=== PATIENT | male | born 1935 | race Caucasian/White ===

== ENCOUNTER 2016-12-30 18:12 | Inpatient (IN) | payer MEDICARE ==
[~2016-12-30] VITALS: Ht 177.8 cm; Wt 71.4 kg
[~2016-12-30 18:12] MED LIST: ACET-2766 PO; AMLO2.5T PO; ASPI-973 PO; HYDR200T5 PO; INVANZ1I IV; Probiotics; SACC250C PO
[2016-12-30 18:21] VITALS: BP 166/87; PULSE 121; RESP 18; O2SAT 96
[2016-12-30 18:50] LABS: APPEARANCE,URINE SLIGHTLY CLOUDY (CLEAR,HAZY); COLOR,URINE YELLOW (YELLOW); OCCULT BLOOD,URINE SMALL (NEGATIVE); UROBILINOGEN,URINE NORMAL (NORMAL)
--- NOTE | 2016-12-30 18:58 | ED.REPORT ---
HPI-Abd Pain M 40 and Over Date of Service Dec 30, 2016 ED Provider: Hanna Flores MD An 81 year old male with a history of hypertension, pancreatitis, lupus, pyelonephritis, sepsis, and ESBL presents to the ED with lower back pain onset today. Associated symptoms include shaking, nausea, vomiting, and subjective fever. The patient denies dysuria, urinary urgency, headache, weakness, dizziness, or abdominal pain. Three weeks ago the patient was diagnosed with a UTI while in [place]. He was placed on Cipro at onset, but his culture was resistant to Cipro so he was switched to a 10-day course of Nitrofurantoin, which he finished a week ago. His symptoms did relieve for a short time with the antibiotics. Nursing Notes Stated Complaint: POSS BLADDER INFECTION Chief Complaint: Male Abdominal Pain Nursing Notes Reviewed: Yes Allergies: Coded Allergies: No Known Allergies (Unverified Allergy, Unknown, 12/30/16) Scheduled Amlodipine (Amlodipine) 2.5 Mg Tablet 7.5 MG PO DAILY Aspirin (Aspirin) 81 Mg Tablet 81 MG PO DAILY Hydroxychloroquine Sulfate (Hydroxychloroquine Sulfate) 200 Mg Tablet 400 MG PO DAILY L. Rhamnosus GG/Inulin (Culturelle Chewable Tablet) 10 Billion Cell-200 Mg Tab.chew 1 EACH PO BID Saccharomyces Boulardii (Florastor) 250 Mg Capsule 250 MG PO BID Sulfamethoxazole/Trimeth 800-160 mg (Bactrim DS 800-160 mg) 1 Each Tablet 1 TABLET PO BID Scheduled PRN Acetaminophen (Tylenol Arthritis) 650 Mg Tablet.er 650 MG PO Q4H PRN PRN For Pain General Time Seen by MD: 18:57 Chief Complaint Other (Lower back pain) Hx Obtained From: Patient Arrived By: Walk-in Sudden in Onset?: No Onset Occurred: 5 - 8 hours ago Symptom Duration: Since onset Location: : Back (Lower) Quality: Painful Severity: Current: Moderate Severity: Maximum: Moderate Associated with: Reports: Fever, Nausea, Vomiting Pertinent Negative: Relieved by nothing Context Related History: Reports: Pancreatitis Recent Healthcare: Recent doctor visit Similar Sx Previous: Yes Past Medical History Past Medical History Lupus Hx of pyelonephritis, acute bacteremia, treated with ertapenem. 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 Neurologic: Reports: Shaking, Denies: Dizziness, Headache, Weakness Physical Exam Initial Vital Signs Vital Signs (First) Date Time Temp Pulse Resp B/P Pulse Ox O2 Delivery O2 Flow Rate FiO2 12/30/16 18:21 36.3 121 18 166/87 96 Room Air 12/30/16 20:30 2 Initial VS: Reviewed, Vital signs abnormal Head / Eyes: Atraumatic, Normocephalic Neck: Supple, Full range of motion Skin: Warm, Dry, No cyanosis Psychiatric: Mood/affect normal, Behavior normal, Normal thought content General/Constitutional: Awake, Alert Respiratory / Chest: Breath sounds NL, Breath sounds = bilat, No respiratory distress Cardiovascular: Regular rhythm, Heart sounds NL, No murmurs, No rubs Heart Rate / Rhythm: Positive: Tachycardia Abdomen: Soft, Non-tender Back: Inspection NL, Full range of motion, No CVA tenderness ENT: Airway patent Mouth: Positive: Mucous membranes dry Neurologic: Oriented X3, Speech NL Rigors Lower Extremity / Pelvis / MS: Inspection NL, No edema Interpretation & Diagnostics Lab Results Interpretation Result Diagram: 12/30/162 12/30/16 1852 Test 12/30/16 18:42 12/30/16 18:52 Urine Color Yellow (YELLOW) Urine Appearance Slightly cloudy Urine pH 6.0 (5.0-8.0) Urine Specific [place] 1.025 (1.003-1.035) Urine Protein 100mg/dL (NEG,TRACE) Urine Glucose (UA) Negativemg/dL (NEGATIVE) Urine Ketones Negativemg/dL (NEGATIVE) Urine Occult Blood Small (NEGATIVE) Urine Nitrite Positive (NEGATIVE) Urine Bilirubin Negative (NEGATIVE) Urine Urobilinogen Normalmg/dL (NORMAL) Urine Leukocyte Esterase Large (NEGATIVE) Urine RBC 3-10/hpf (0-2) Urine WBC Packed/hpf (0-5) Urine Epithelial Cells Occasional/hpf (NONE-MOD) Urine Crystals None seen (NONE SEEN) Urine Bacteria Many/hpf (NONE-FEW) Urine Hyaline Casts None/lpf (NONE) Urine Granular Casts None seen (NONE SEEN) Urine Waxy Casts None seen (NONE SEEN) Urine Red Blood Cell Casts None seen (NONE SEEN) Urine White Blood Cell Casts None seen (NONE SEEN) Urine Mucus None seen (None Seen) Urine Trichomonas None seen (NONE SEEN) Urine Yeast None (NONE SEEN) Urinalysis Comment None Urine Culture Reflexed Indicated White Blood Count 14.4th/mm3 (3.8-10.1) Red Blood Count 4.90mil/mm3 (4.40-5.80) Hemoglobin 14.2g/dL (13.8-17.2) Hematocrit 43.1% (41.0-50.0) Mean Corpuscular Volume 88.0fL (81-100) Mean Corpuscular Hemoglobin 29.0pg (27.0-35.0) Mean Corpuscular Hemoglobin Concent 32.9% (32.0-37.0) Red Cell Distribution Width 13.7% (12.3-15.4) Platelet Count 377bil/L (150-400) Neutrophils (%) (Auto) 67.6% (40-74) Lymphocytes (%) (Auto) 21.1% (14-46) Monocytes (%) (Auto) 7.3% (4-12) Eosinophils (%) (Auto) 3.0% (0-5) Basophils (%) (Auto) 0.3% (0-3) Sodium Level 142mEq/L (134-144) Potassium Level 4.1mEq/L (3.5-5.2) Chloride Level 99mEq/L (97-108) Carbon Dioxide Level 20mmol/L (18-29) Blood Urea Nitrogen 22mg/dL (8-27) Creatinine 1.40mg/dL (0.76-1.27) Estimat Glomerular Filtration Rate 52mL/min (>59) Glucose Level 168mg/dL (60-99) Calcium Level 9.3mg/dL (8.5-10.1) Magnesium Level 1.9mg/dL (1.6-2.6) Total Bilirubin 0.6mg/dL (0.0-1.2) Aspartate Amino Transf (AST/SGOT) 22U/L (0-50) Alanine Aminotransferase (ALT/SGPT) 17U/L (0-44) Alkaline Phosphatase 99U/L (25-160) Troponin T < 0.010ug/L (0.0-0.011) Total Protein 8.0g/dL (6.4-8.4) Albumin 4.2g/dL (3.4-5.0) ECG Interpretation ECG Interpretation: Sinus rhythm rate 97 Increased QTc Q waves in leads III and aVF No acute ST changes Time: 19:42 Interpreted by: ED physician X-Ray Chest Interpretation Chest Xray Interpretation: IMPRESSION: Mild appearance of increased pulmonary vascularity with bibasilar streaky opacities. The latter could be home furnishings sales representative of more prominent basilar edema versus developing airspace disease such as atelectasis and/or pneumonia. Dictated by: Yadira Arora M.D. on 12/30/2016 at 19:34 View: Portable, 1 view Interpretation / Wet Read by: Interpret - Radiologist CT Abd / Pelvis Interpretation CONCLUSION: No CT evidence of acute intra-abdominal pathology. Diverticulosis without CT evidence of diverticulitis. Mildly enlarged prostate gland. Transmitted to ED by Ace Cordova M.D. at 12/30/2016 - 10:58:39 PM PDT Study type: Abdominal CT no contrast Interpretation / Wet Read by: Interpret - Radiologist Re-Eval/Medical Decision Med Decision/Clinical Course The patient has a urinary tract infection partially treated and now has developed sepsis. He had a pretty elevated lactic acid is given fluids and his fever treated with improvement in his vital signs. The meeting physician requested a CT KUB He did not have any abdominal symptoms and had a benign abdominal exam. The patient was given ertapenem based on prior urinary tract infections, he has had [id number] organisms. Source of Hx: Old records Time of Eval: 22:00 Patient Status: Condition improved Re-Evaluation/Progress Note: Discussed with patient x-ray, CT, and lab results, diagnosis, and plan for admit. Patient agrees with plan for care and all questions were addressed. Consultation : Referral / Consult Name: Juju Martínez DO Consulted With: Hospitalist Call Returned at: 22:20 Unload Associate: Agrees with eval, Agrees with plan, Accepts admit Note: Requests CT KUB Counseled Regarding: Diagnosis, Lab results, Need for admission Discharge & Departure Primary Impression: Urinary tract infection Urinary tract infection type: acute cystitis Hematuria presence: without hematuria Qualified Code: N30.00 - Acute cystitis without hematuria Additional Impression: Sepsis Sepsis type: sepsis due to unspecified organism Qualified Code: A41.9 - Sepsis, unspecified organism Disposition: ADMITTED TO HOSPITAL Vital Signs - All Vital Signs Date Time Temp Pulse Resp B/P Pulse Ox O2 Delivery O2 Flow Rate FiO2 12/30/16 20:30 39.2 97 32 144/67 93 Nasal Cannula 2 12/30/16 18:21 36.3 121 18 166/87 96 Room Air )( All Prior VS Reviewed: Yes Condition: Improved Referrals: [facility] (PCP) (Family) Scribe Attestation Portions of this note were transcribed by Bailey Sierra. I, Dr. Flores, personally performed the history, physical exam, and medical decision-making; I reviewed and confirmed the accuracy of the information in the transcribed note. Signed by: Philip Ty, 12/30/2016, 23:05 copies to: [facility] Hanna Flores MD Dec 30, 2016 18:58 BAILEY SIERRA Dec 30, 2016 19:15
[2016-12-30] MEDS ORDERED: Ondansetron 2 mg/mL 2 mL Inj ONE ×2 (18:59→21:14)
[2016-12-30] MEDS ORDERED: 0.9% Sodium Chloride 1,000 ML IV ONE (19:00)
[2016-12-30 19:06] LABS: BASOPHILS % (AUTO) 0.3 % (0-3); MONOCYTES % (AUTO) 7.3 % (4-12); NEUTROPHILS % (AUTO) 67.6 % (40-74); Platelet Count 377 bil/L (150-400)
[2016-12-30] MEDS ORDERED: Ertapenem Inj 1,000 MG in 0.9% Sodium Chloride 50 ML IV ONE (19:15)
[2016-12-30] MEDS ORDERED: HYDROmorphone 0.5 mg/0.5 mL iSecure Syringe IVPUSH PRN (19:30)
[2016-12-30 19:36] LABS: TROPONIN T < 0.010 ug/L (0.0-0.011)
--- NOTE | 2016-12-30 19:37 | DRSVH ---
PROCEDURE: X-RAY CHEST ONE VIEW, PORTABLE ([id number]) INDICATIONS: FEVER TECHNIQUE: One view of the chest was acquired. COMPARISON: [facility], CR, XR CHEST 1VW (PORTABLE), 04/28/2016, 18:24. FINDINGS: Surgical changes and devices: None. Lungs and pleura: There is a minimal appearance of increased pulmonary vascularity. Slight appearance of right basilar streaky opacities are noted. Mediastinum: Mediastinal contours appear normal. Heart size is normal. Bones and chest wall: No suspicious bony lesions. Overlying soft tissues appear unremarkable. IMPRESSION: Mild appearance of increased pulmonary vascularity with bibasilar streaky opacities. The latter could be kiosk sales representative of more prominent basilar edema versus developing airspace disease suc h as atelectasis and/or pneumonia. Dictated by: Yadira Arora M.D. on 12/30/2016 at 19:34 Approved by: Yadira Arora M.D. on 12/30/2016 at 19:35
[2016-12-30 19:41] LABS: Magnesium 1.9 mg/dL (1.6-2.6)
[2016-12-30 20:30] VITALS: BP 144/67; PULSE 97; RESP 32; O2SAT 93
[2016-12-30] MEDS ORDERED: L. R1TAB PO (21:10)
[2016-12-30] MEDS ORDERED: SULF1TAB35 PO (21:12)
[2016-12-30] MEDS ORDERED: Ondansetron 2 mg/mL 2 mL Inj IVPUSH PRN ×2 (21:15→23:00)
[2016-12-30 21:17] VITALS: BP 139/61; PULSE 99; RESP 32; O2SAT 93
[2016-12-30 21:54] VITALS: BP 140/63; PULSE 104; RESP 16; O2SAT 94
[2016-12-30] MEDS ORDERED: Polyethylene Glycol (PEG) 17 Gm Powder PO PRN (22:20)
[2016-12-30] MEDS ORDERED: Alum-Mag Hydrox-Simeth 30 mL Suspension PO PRN ×2 (22:20→23:00)
[2016-12-30] MEDS ORDERED: D5 0.45% NaCl + KCl 20 mEq/L 1,000 ML IV SCH (22:56)
[2016-12-30 23:04] VITALS: BP 130/69; PULSE 86; PULSE 90; RESP 17; O2SAT 93
[2016-12-31] VITALS (10 sets, daily range): BP systolic 93–143; BP diastolic 60–81; PULSE 64–86; RESP 14–32; O2SAT 90–96
--- NOTE | 2016-12-31 01:02 | NUR ---
Admit: Pt admitted to PCC room 2008. Pt placed on Tele showing SR, Vitals stable. Pt denies any pain. sp02 maintained in the 90s on 2 L NC. Med rec completed in ER- admit health history questions completed via pt interview. Pt currently resting comfortably in bed. Care ongoing.
--- NOTE | 2016-12-31 01:16 | PCM.HPMED ---
Subjective Date of Service Dec 31, 2016 Primary Provider: Admitting Physician: Juju Martínez DO [facility] Attending Physician: Juju Martínez DO Admit Status: From the Emergency Department Chief Complaint: Urinary tract infection Chills and rigors History of Present Illness: Patient is a pleasant 81-year-old gentleman with history of hypertension, pancreatitis, lupus, pyelonephritis, sepsis and Escherichia coli ESBL for which he was previously treated in April 2016. Patient reports 3 weeks ago being on a trip to [place] where he began to have his previous symptoms of back pain which correlates to the urinary tract infection. He was seen in our walk-in clinic and they prescribed him ciprofloxacin, which he took until he is able to be seen [facility] with a contact the clinic and got culture and sensitivity and found that the bug was resistant to ciprofloxacin, he was subsequent we switched to a 10 day course of nitrofurantoin which he finished one week ago. Earlier today he began to have back pain, he called urology, with a sent him prescription for antibiotics (Bactrim), he says he took 1 pill and shortly after he began to have nausea, shaking, chills, cold sweat, vomited at least 3 times. He denies any dysuria or fevers. In the emergency department he was given a dose of ertapenem, which cultures and sensitivity from April and March of last year showed the organism to be susceptible to. He received IV fluids and states since then he has been feeling progressively better. In the ER he was found to have temperature 36.3, heart rate 121, respirations 18 per minute 166/87, White blood cells 14.4 with normal differential, hemoglobin 14.2, platelets 377 , creatinine 1.4, glucose 168, CMP otherwise unremarkable. Lactic acid 7.4 initially, on recheck 4 hours later had decreased to 1.1 Urinalysis showed a cloudy sample, 6.0 pH. Specific gravity 1.025, protein 100 mg/dL, negative glucose, negative ketones, small occult blood, positive nitrates , large leukocyte esterase, packed white blood cells per high-powered field, 3- 10 red blood cells, occasional epithelial cells, On admission, he is denying any lightheadedness, dizziness, dysuria, back pain, shaking, chills, cold sweats, joint pain, myalgia diarrhea, constipation, abdominal pain. Review of Systems: Comprehensive review of systems negative unless specified in the history of present illness Allergies Coded Allergies: No Known Allergies (Unverified Allergy, Unknown, 12/30/16) Home Medications Scheduled Amlodipine (Amlodipine) 2.5 Mg Tablet 7.5 MG PO DAILY Aspirin (Aspirin) 81 Mg Tablet 81 MG PO DAILY Hydroxychloroquine Sulfate (Hydroxychloroquine Sulfate) 200 Mg Tablet 400 MG PO DAILY L. Rhamnosus GG/Inulin (Culturelle Chewable Tablet) 10 Billion Cell-200 Mg Tab.chew 1 EACH PO BID Saccharomyces Boulardii (Florastor) 250 Mg Capsule 250 MG PO BID Sulfamethoxazole/Trimeth 800-160 mg (Bactrim DS 800-160 mg) 1 Each Tablet 1 TABLET PO BID Scheduled PRN Acetaminophen (Tylenol Arthritis) 650 Mg Tablet.er 650 MG PO Q4H PRN PRN For Pain PMH Lupus Hx of pyelonephritis, acute bacteremia, treated with ertapenem. 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 Surgical History Denies any surgical history Family History Father of stomach cancer at 90 years old Mother from end-stage renal disease at 87 years old 2 older brothers from cancer, one from back cancer at 70 years old, the other from jaw cancer at 71 secondary to tobacco use Social History Occupation: retired Hx Alcohol Use: No Hx Substance Use: No Hx Tobacco Use: Yes (quit approx 30 years ago) Smoking Status: Former Smoker (quit in 1989) Living Arrangement: with Family Exam Vital Signs Vital Sign - Last Date Time Temp Pulse Resp B/P Pulse Ox O2 Delivery O2 Flow Rate FiO2 12/30/16 23:15 Supplement Oxygen 12/30/16 23:04 37.7 86 17 130/69 93 2.00 Intake and Output 12/30/16 12/30/16 12/31/16 Cumulative From/Thru 15:00 23:00 07:00 12/30/16 18:21 - 12/30/16 23:30 Intake Total 2000 ml 2000 ml Output Total 300 ml 300 ml Balance 1700 ml 1700 ml Intake IV Total 2000 ml 2000 ml Output Urine Total 300 ml 300 ml # Voids 1 1 Exam General: Laying in bed, no apparent distress. HEENT: Normocephalic, atraumatic, EOMI grossly, Cardiovascular: Regular rate and rhythm, no clicks murmurs rubs, peripheral pulses 2/4 equal bilaterally Pulmonary: Clear to auscultation bilaterally, no W/R/R. Abdominal: Soft to palpation, bowel sounds present 4, no hepatosplenomegaly. Negative rebound. Extremities: No edema appreciated. No tenderness, asymmetry. Neuro: Neurologically grossly intact, strength is equal bilaterally upper and lower extremities. : No flank pain no [place]if[place] catheter MSK: Gait is normal, able to move extremities on their own volition, strength 5 out of 5 equal bilaterally to upper and lower extremities. Lab and Diagnostics Result Diagram: 12/30/16185112/30/161851 Microbiology Blood cultures and urine cultures pending X-Rays, CTs and MRIs CT Abd / Pelvis Interpretation performed 12/30/2016 CONCLUSION: No CT evidence of acute intra-abdominal pathology. Diverticulosis without CT evidence of diverticulitis. Mildly enlarged prostate gland. Transmitted to ED by Ace Cordova M.D. at 12/30/2016 - 10:58:39 PM PDT Study type: Abdominal CT no contrast Interpretation / Wet Read by: Interpret - Radiologist Chest Xray Interpretation: Performed 12/30/2016 IMPRESSION: Mild appearance of increased pulmonary vascularity with bibasilar streaky opacities. The latter could be hr representative of more prominent basilar edema versus developing airspace disease such as atelectasis and/or pneumonia. Dictated by: Yadira Arora M.D. on 12/30/2016 at 19:34 View: Portable, 1 view Interpretation / Wet Read by: Interpret - Radiologist 12-lead ECG Sinus rhythm, rate 97. Normal axis "inferior infarct, old. Prolonged QT interval at 507, compared with previous EKG of April 2016 there is new or worsened ischemia or infarction. Significant repolarization change." Assessment & Plan 81-year-old man with history of urinary tract infections of ESBL Escherichia coli, presents with UTI symptoms, found to have urinary tract infection, signs and symptoms of sepsis, refractory to previous outpatient antibiotics, responded to IV fluids and ertapenem. #1 Acute sepsis, present on admission, improving Heart rate 121, intermittent tachypnea up to 32 breaths per minute, white count 14.4, identified source urinary tract. Initial lactic acid was 7.4, however on recheck was 1.1 four hours later going to recheck at 2 AM given the substantial difference. Received D5 half-normal saline, changed to normal saline 100 mL per hour. Repeat CBC CMP in the morning Pro-calcitonin to trend Blood cultures 2 pending Treatment for urinary tract infection as below #2 acute, recurrent Urinary tract infection present on admission, treatment initiated, improving History of ESBL Escherichia coli urinary tract infections, similar symptoms and presentation, urinalysis positive for infection. Do not suspect pyelonephritis due to quick resolution of back pain with IV fluids and 1 dose of antibiotics. Urine sent for culture Based on previous cultures, sensitivities, and INNA's, ertapenem was chosen as drug of choice. 1g IV every 24 hours for 10-14 days Infectious disease consult. Isolation - contact #3 Acute kidney injury, present on admission, treatment initiated Serum creatinine 1.40, previous value in April was 1.02, was previously elevated in March of last year with the diagnosis of pyelonephritis. Normal saline IV 100 mL per hour Recheck creatinine in the morning if continues to be elevated consider nephrology consult #4 prolonged QTC, chronicity unknown, present on admission, active QTC was 507 on admission, electrolytes were normal, Most likely due to medications Plaquenil is known to cause QTC prolongation. He is reportedly on this medication for off label use for urinary retention on the advice of Dr. Jackson and his urologist. We will hold Plaquenil and recheck EKG before discharge. #5 EKG changes from previous, present on admission, chronicity unknown. Active Troponin negative, but EKG was read as having worsening ischemia and infarction compared to EKG in April 2016. Asymptomatic at this time, changes may be due to acute stress. We will recheck EKG as above before discharge, referral to cardiology if necessary as an outpatient. Avoid QT prolonging medications. VTE Prophylaxis SCDs GI prophylaxis: Not indicated Pain management: Not describing any pain. Pain Evaluation: Adequate Pain Control GI Prophylaxis: Not indicated VTE Prophylaxis: SCDs VTE Mechanical Devices: Intermittant Pneumatic CD Resuscitation Status: CPR: Attempt Resuscitation Attending Statement The patient was seen and examined together with house staff on 12/30/2016 and I agree with the history, exam and plan as outlined in the note above. Neil Canseco DO Dec 31, 2016 01:16 Juju Martínez DO Dec 31, 2016 02:23
[2016-12-31] MEDS: 0.9% Sodium Chloride 1,000 ML IV SCH ×3 (01:17→22:27)
[2016-12-31] MEDS ORDERED: Haloperidol Decanoate 50 mg/mL Inj IM STA (04:01)
[2016-12-31] MEDS ORDERED: Haloperidol 5 mg/mL Inj IVPUSH ONE (04:05)
[2016-12-31] MEDS ORDERED: Haloperidol 5 mg/mL Inj IM ONE (04:05)
[2016-12-31 04:07] LABS: BASOPHILS % (AUTO) 0.2 % (0-3); EOSINOPHILS % (AUTO) 0.1 % (0-5); MONOCYTES % (AUTO) 9.7 % (4-12); Mean Corpuscular Hemoglobin 28.1 pg (27.0-35.0); Mean Corpuscular Volume 88.4 fL (81-100); NEUTROPHILS % (AUTO) 81.3 % (40-74); Platelet Count 257 bil/L (150-400)
[2016-12-31] MEDS ORDERED: Haloperidol 5 mg/mL Inj IM STA (04:07)
--- NOTE | 2016-12-31 05:11 | NUR ---
Change in mentation: 0300 pt awoke and noted to be very restless. Pt [place], however garbled speech, unable to answer questions "what is your name" "where are you". Vitals stable Blood Glucose 108. At this time, Dr. Canseco notified- at bedside shortly after to assess pt. New IV access obtained as pt d/c his previous one rolling around in bed. STAT lactic acid drawn per MD order. Order received for 0.5mg IV Ativan ( 2nd dose can be given if first was ineffective) and order for head CT 0.5mg given- 15 minutes later Pt escorted by discharge coordinator to CT. Additional dose of 0.5mg Ativan needed in CT to get pt to lay still. Image reviewed by MD. Pt currently back in room- Vitals stable- pt placed on RIVET HEATER to monitor SPO2 as he is very sleepy after Ativan administration. Ranjana notified of changes- states pt does has not consumed ETOH in years- and pt has never show s/s of sun downing. MD aware. Care ongoing.
[2016-12-31] MEDS: Lactobacillus Rhamnosus 10 Bil Unit Capsule PO SCH ×2 (08:30→19:59)
[2016-12-31] MEDS ORDERED: Hydroxychloroqine 200 mg Tablet PO SCH (08:30)
--- NOTE | 2016-12-31 10:03 | DRSVH ---
PROCEDURE: CT KUB ([id number]) INDICATIONS: fever TECHNIQUE: Noncontrast 5 mm thick sections acquired from the diaphragms to the symphysis. 5 mm thick coronal an d sagittal reformats were then performed. For radiation dose reduction, the following was used: aut omated exposure control, adjustment of mA and/or kV according to patient size. COMPARISON: None. FINDINGS: Image quality: Excellent. Lung bases: Lung bases are clear. Heart size is normal. Urinary system: Both kidneys are atrophic in size. No kidney stones. No hydronephrosis or perineph susan fat stranding. Both ureters appear non-dilated throughout their expected courses. Bladder wall thickness is normal; no calcified bladder stones. The prostate gland is enlarged with calcifications . Other solid organs: Liver is enlarged with steatosis. normal in size. Gallbladder is unremarkable. Pancreas is normal in contours. No adrenal nodules. Peritoneum and bowel: Unenhanced bowel loops demonstrate normal wall thickness and caliber. No free fluid or air. Scattered diverticula are present most suggestive of diverticulosis. Nodes and vessels: No retroperitoneal or mesenteric adenopathy by size criteria. Aorta and inferior vena cava are normal in caliber. Abdominal wall: No ventral hernias. Pelvis: No free pelvic fluid. No inguinal hernias or adenopathy. Bones: No suspicious bony lesions. No vertebral body compression fractures. IMPRESSION: 1. No visualized cause of pain. 2. Diverticulosis. Dictated by: Yadira Arora M.D. on 12/31/2016 at 9:05 Approved by: Yadira Arora M.D. on 12/31/2016 at 10:02
[2016-12-31] MEDS: Ondansetron 2 mg/mL 2 mL Inj IVPUSH PRN ×2 (10:57→14:51)
--- NOTE | 2016-12-31 12:01 | DRSVH ---
PROCEDURE: CT BRAIN WITHOUT CONTRAST ([id number]) INDICATIONS: ALtered mental status TECHNIQUE: Noncontrast 4.5 mm thick angled axial sections acquired from the foramen magnum to the vertex, with c oronal reformats. COMPARISON: None. FINDINGS: Image quality: Excellent. CSF spaces: Basal cisterns are patent. No extra-axial fluid collections. The ventricles are symmet susan in size and shape. Brain: No intracranial bleeds or masses. There is cerebral volume loss for age, with resultant vent ricular and sulcal prominence. There are periventricular and deep white matter chronic small vessel ischemic changes. There is intracranial internal carotid artery atherosclerosis. Skull and face: Calvarium and visualized facial bones appear intact, without suspicious lesions. Sinuses: Visualized sinuses and mastoids are clear. IMPRESSION: 1. No acute intracranial process. 2. Moderate atrophy and chronic microvascular ischemic changes. Dictated by: Yadira Arora M.D. on 12/31/2016 at 11:59 Approved by: Yadira Arora M.D. on 12/31/2016 at 12:00
--- NOTE | 2016-12-31 12:02 | CONS ---
[address] [address] CONSULTATION REPORT PATIENT: WENDY ARIZA : 1935 MR#: [id number] ADMIT: 12/30/2016 JOB ID: [id number] DATE OF SERVICE: 12/31/[address] Bolanos for this timely consult. REASON FOR CONSULTATION: Sepsis secondary to ESBL E. coli pyelonephritis. HISTORY OF PRESENT ILLNESS: The patient is an 81-year-old gentleman, known to me from a bizarre admission which occurred last summer. Last summer, the patient was admitted with bacteremic ESBL E. coli pyelonephritis. He had received a couple doses of Septra as an outpatient and then was admitted and placed on ceftriaxone. I saw him several days into the hospital stay when he was dramatically improved and almost ready to go home. The odd part about that was that as an inpatient he had been treated initially with ceftriaxone which should have absolutely no activity against the ESBL E. coli in his blood, and he got better anyway. At the end of this strange case, we sent the patient out with a short course of IV ertapenem. He did well and did not have urinary symptoms for a sustained period of time. More recently, the patient and his were spending some time in [place], and they went there in November and returned about a week or 10 days ago. While in [place] during their month long stay, he developed dysuria, back pain and malaise, which was much similar to the way his episode in March 25 of last year started with pyelo. Because of this, they sought evaluation in the Urgent Care in [place], [place], and he was given Cipro. He took that first a week or 10 days without much improvement and, in fact, drove home from [place] with his feeling very poorly, complaining of some malaise, back pain, dysuria and generalized just fatigue. After his arrival back here, he sought additional evaluation and was treated with nitrofurantoin, as a urine culture done in Urology on December 27 showed again that he had an ESBL in his urine which was only sensitive to carbapenems, aminoglycosides, nitrofurantoin and Bactrim, which is a typical pattern for an ESBL E. coli. The choice of nitrofurantoin was appropriate, but the patient's symptoms progressed and so he was re-evaluated once again and placed on Bactrim just yesterday. Unfortunately, by the time he got started on Bactrim, which was an excellent choice, the patient was already developing nausea, vomiting, fevers with rigors and just increasing back pain, increasing dysuria, and just starting to decompensate. 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 Subsequent to his admission, it was recognized, of course, that he had ESBL back in March as well as this past few days here in the Urology Clinic, and he was started on ertapenem which would be the drug of choice for an ESBL E. coli. ID is consulted regarding appropriate management at this time. No additional history is available from the patient as he is very encephalopathic at this time and really unable to converse, and only follows the simplest of commands inconsistently such as to open his eyes or move an extremity. His tells me that in the days leading up to this admission, he has been complaining, especially yesterday, of the fevers, chills, profound weakness and eventually developed the confusion. He has been complaining to his family about dysuria and frequency, and has not complained about diarrhea. There has also been in the past 24 hours some complaint of upper abdominal pain as well which is worth noting in this patient with a history of pancreatitis. He has not had any significant cough or shortness of breath according to the family who is traveling and living with him. No additional history is available from the patient. PAST MEDICAL HISTORY: 1. Lupus, for which he is on no immunosuppressive therapy. 2. Hypertension. 3. History of recurrent pancreatitis. SOCIAL HISTORY: The patient lives at home with his family. He is an ex-smoker, quit 30 years ago. He also quit drinking 30 years ago. He served honorably in the [employer]. Is cared for at the [facility]. 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 FAMILY HISTORY: Is unobtainable at this time due to his encephalopathy, but I know from my prior conversations the patient has no 1st degree family history of TB, and I doubt that has changed in the last nine months. REVIEW OF SYSTEMS: Not possible secondary to the patient's obtundation. PHYSICAL EXAMINATION: Reveals a critically ill gentleman, lying supine in his hospital bed in the [facility]. Temperature is currently 37.4, but he has been as high as 39.2 in the ED last night. Pulse in the 80s, right now. Respiratory rate around 30, blood pressure 130/68. He is not on any vasopressor agents. He is saturating 93% on 2 L. the patient inconsistently follows commands such as opening his eyes or moving his arms or legs. Otherwise, he is not communicative in any way this morning. There is no evidence of head trauma. Examination of the eyes is notable for pupil about 5 mm on the right and 3 mm on the left. This anisocoria is not mentioned in prior notes and is of concern. The patient does not follow commands, so we cannot track his extraocular movements. He has no scleral icterus or conjunctivitis. Nose appears normal. Oral cavity could not be examined as the patient did not open his mouth. His neck is quite supple, and his neck is without adenopathy or obvious JVD. Lungs relatively clear, though he does not take deep breaths to command. Cardiac tones, regular rate and rhythm. I did not appreciate a murmur, rub, or any gallop. Abdomen is somewhat distended and tender diffusely, but especially in the epigastrium. He also seems to grimace more with right greater than left flank percussion. No rash is seen. His abdomen, though tender, does not have appreciable ascites or organomegaly. Clifton catheter is present. There is no inguinal adenopathy. The extremities are free of synovitis, cellulitis or peripheral edema. The patient moves all four extremities, but beyond that, we cannot say anything about his neuro exam because of his ongoing encephalopathy. As mentioned, there is no skin rash. LABORATORIES: Include white count, was 14,000 in the ED last night, now 12,000. He does have a left shift over 80% segs, no bandemia interestingly. His lactic acid was as high as 7.4 when he hit the ED. It is now down to 1.3. Procalcitonin 0.62 at first measurement. It will likely be higher tomorrow. His liver function tests are normal. Creatinine 1.31. His baseline creatinine is known to be right around 1.0. Urinalysis packed with white cells on this occasion. Urine culture from December 27 in Urology is available. He has an ESBL E. coli sensitive only to carbapenems, nitrofurantoin, Bactrim and aminoglycosides. This appears to be exactly the same pattern as the organism that we found in his urine and blood back in March 2016. IMAGING: Overnight, included a chest x-ray, which was read as bibasilar streaky opacities, felt more likely to a bit of pulmonary edema rather than pneumonia. He also had a CT KUB which found no cause of abdominal pain, and diverticulosis but not diverticulitis was noted. A brain CT was just done and has not yet been interpreted. IMPRESSION: This 81-year-old gentleman with history of Escherichia coli extended-spectrum beta-lactamases bacteremia and complicated urinary tract infection back in March appears to be presenting with essentially the same thing. The patient has been complaining to his family about dysuria, malaise and back pain, and was treated with Cipro which would undoubtedly be ineffectual. He then received nitrofurantoin which would work for cystitis but not for pyelonephritis, and finally was placed on appropriate drug yesterday in the form of trimethoprim sulfamethoxazole, but he was already too sick and developed nausea, vomiting and rigors which rapidly led to his admission. He was found yesterday to have a high white count with left shift, as well as lactic acidosis, and an encephalopathic picture. He has been appropriately placed on ertapenem, and we will adjust the dose of that antibiotic. Other diagnostic concerns here might include recurrent pancreatitis as well as conceivably a bowel process such as a bowel perforation, or a diverticulitis, but these changes were not seen on the case CT KUB of the abdomen that was done earlier. RECOMMENDATIONS: 1. Will increase the dose of ertapenem to 1 g q.24 h., with a supplemental dose this morning. 2. Lipase will be checked. 3. Stool for PCR will be checked on the off chance the patient could have C. diff precipitated by the Cipro recently received, though I do not think that this clinical picture is compatible. 4. We will investigate whether he has any outpatient records or ophthalmologic records regarding anisocoria, as this is an unusual finding. We await the results of the CT scan of the brain, which may be helpful in that regard, but if not, the patient may require a more formal Neuro evaluation to try and explain this fairly striking abnormality which has not been noticed on many previous notes we reviewed here at [facility].
[2016-12-31] MEDS: Acetaminophen IV 1,000 MG in IV Premix 1 EACH IV PRN ×2 (14:51→20:53)
--- NOTE | 2016-12-31 16:23 | NUR ---
Social Work Note: Initial Assessment Data& Assessment: EMR reviewed. SW met with pt and pt family at bedside to discuss discharge planning, SW role explained. Pt was sleeping and pt provided baseline information. Mejia Ho is a 81 year old male admitted on 12/30/2016 for UTI and sepsis. Pt has [employer] insurance coverage and goes to the [place] [facility] in [place] for [place]. Pt lives in [place] with his in a one story home and is independent at baseline. Pt does not require any DME normally and does not have HH or SNF hx. Pt does not have LTC insurance. Pt does not think that pt has ever applied for service connection through the [place]. Pt is planning on bringing completed DPOA paperwork to the hospital as soon as possible. Pt family denies any other needs at this time. SW to continue to follow for medical progression and MD and PT recommendations. Plan: Anticipated discharge home vs. SNF pending PT eval. SW to continue to follow for MD and PT evaluation and recommendations. Pt family denies any other needs at this time. SW to continue to follow. SOHEILA Hernandez Addendum: 12/31/16 at 1627 by CHARLENE LUCIANO Amended: Links added.
[2016-12-31] MEDS ORDERED: Meropenem Inj 2,000 MG in 0.9% Sodium Chloride 100 ML IV ONE (16:30)
--- NOTE | 2016-12-31 18:03 | NUR ---
Mentation/temperature/O2 Patient restless in bed, does not follow commands or speak. Spontaneously opens eyes and groans. Moves all extremities and changes position in bed. Family at bedside unable to get response from patient. Patient shaking with chills and then diaphoretic and flushed on and off throughout shift. Temperature spiked at 103 F, PRN APAP given with good effect. Patient temp currently 98.6. O@ demands have increased throughout shift as well. Currently patient is on 8L Oxymax with SpO2 in the mid 90s. Patient frequently repositioned for comfort. Family at bedside. Vitals are currently WNL. Will continue to monitor.
--- NOTE | 2016-12-31 18:34 | PROG NOTE ---
[address] [address] PROGRESS NOTE PATIENT: WENDY ARIZA : 1935 MR#: [id number] ADMIT: 12/30/2016 JOB ID: [id number] DATE: 12/31/2016 PROCEDURE: Lumbar puncture. INDICATION FOR PROCEDURE: Rule out intracranial infection in a patient with overt sepsis secondary to a urinary tract infection with probable ESBL. DESCRIPTION OF PROCEDURE: As there was a remote possibility of possible involvement of the central nervous system due to patient's confusion in the setting of a septic patient, it was decided to try a lumbar puncture. Unfortunately, we were unable to complete this exam. The patient was very agitated. We did try at the L2 and around the L2 interspace and was unable to cannulate the spinal canal of any fluid. As the patient was moving so much and did not want to use any further sedation at this time, we decided not to continue with the procedure. The patient was started on ertapenem for his presumed ESBL urinary source of sepsis, but this will be changed to meropenem after talking with Dr. Jackson as this would provide some intracranial coverage.
[2016-12-31] MEDS ORDERED: Ertapenem Inj 1,000 MG in 0.9% Sodium Chloride 50 ML IV SCH (19:20)
--- NOTE | 2016-12-31 19:46 | PCM.PNMED ---
Subjective Date of Service Dec 31, 2016 Subjective overnight: Staff noted acute mental status change at 3 AM with the patient having garbled unintelligible speech and unable to answer simple questions. Due to patient agitation he received a 0.5 mg IV Ativan and had a head CT looking for intracranial hemorrhage which was negative. No improvement in mental status overnight. Today: Patient remains incoherent and unable to follow commands. Lumbar puncture for possible meningitis some successful and the patient was placed on empiric meningitis coverage with meropenem per ID recommendations. Patient's vital signs remained stable however he has some minor increase in O2 requirements. Exam Vital Signs Vital Sign - Last Date Time Temp Pulse Resp B/P Pulse Ox O2 Delivery O2 Flow Rate FiO2 12/31/16 04:49 37.1 80 19 118/61 92 Nasal Cannula 2.00 Intake and Output 12/30/16 12/30/16 12/31/16 Cumulative From/Thru 15:00 23:00 07:00 12/30/16 18:21 - 12/31/16 05:22 Intake Total 2000 ml 592 ml 2592 ml Output Total 300 ml 500 ml 800 ml Balance 1700 ml 92 ml 1792 ml Intake Oral 100 ml 100 ml IV Total 2000 ml 492 ml 2492 ml Output Urine Total 300 ml 500 ml 800 ml # Voids 1 1 Exam General: Elderly man laying in bed, moderate acute distress, patient is shaky and not following commands Eyes: anisocoria with sluggish pupillary response right eye greater 4mm than left 2mm HEENT: Normocephalic, atraumatic, moist mucus membranes with no central cyanosis or cobblestoning mucosa Cardiovascular: Regular rate and rhythm, no clicks murmurs rubs, peripheral pulses 2/4 equal bilaterally at radial and dorsalis pedis Pulmonary: Clear to auscultation bilaterally, no W/R/R. Abdominal: normoactive bowel sounds present 4, Soft, patient appears uncomfortable with palpation of abdomen, no hepatosplenomegaly Extremities: No edema appreciated. No tenderness, asymmetry. Neuro: anisocoria, patient is unable to follow commands, moves all extremities, upgoing Babinski bilaterally, withdraws from pain : no Clifton catheter MSK: able to move extremities Psych: unable to assess Lab and Diagnostics Result Diagram: 12/31/168 12/31/16317 Microbiology Blood cultures and urine cultures pending X-Rays, CTs and MRIs CT Abd / Pelvis Interpretation performed 12/30/2016 CONCLUSION: No CT evidence of acute intra-abdominal pathology. Diverticulosis without CT evidence of diverticulitis. Mildly enlarged prostate gland. Transmitted to ED by Ace Cordova M.D. at 12/30/2016 - 10:58:39 PM PDT Study type: Abdominal CT no contrast Interpretation / Wet Read by: Interpret - Radiologist Chest Xray Interpretation: Performed 12/30/2016 IMPRESSION: Mild appearance of increased pulmonary vascularity with bibasilar streaky opacities. The latter could be medicare sales representative of more prominent basilar edema versus developing airspace disease such as atelectasis and/or pneumonia. Dictated by: Yadira Arora M.D. on 12/30/2016 at 19:34 View: Portable, 1 view Interpretation / Wet Read by: Interpret - Radiologist 12-lead ECG Sinus rhythm, rate 97. Normal axis "inferior infarct, old. Prolonged QT interval at 507, compared with previous EKG of April 2016 there is new or worsened ischemia or infarction. Significant repolarization change. Assessment & Plan 81-year-old man with history of urinary tract infections of ESBL Escherichia coli, presents with UTI symptoms, found to have urinary tract infection, signs and symptoms of sepsis, refractory to previous outpatient antibiotics, responded to IV fluids and ertapenem. #1 Acute sepsis, present on admission, improving on admission Heart rate 121, intermittent tachypnea up to 32 breaths per minute , white count 14.4, identified source urinary tract. Initial lactic acid was 7.4, however on recheck was 1.1 four hours later. Received D5 half-normal saline, changed to normal saline 100 mL per hour. Repeat CBC CMP in the morning Pro-calcitonin to trend Blood cultures 2 pending Treatment for urinary tract infection as below #2 acute altered mental status, not present on admission, stable CT scan performed overnight was negative for intracranial hemorrhage Rectal aspirin given for possible thromboembolic stroke Lumbar puncture was unsuccessful to test for possible meningitis Empiric meningitis treatment with meropenem 2 g every 8 hours Continue to monitor and evaluate #3 acute, recurrent Urinary tract infection present on admission, treatment initiated, improving History of ESBL Escherichia coli urinary tract infections, similar symptoms and presentation, urinalysis positive for infection. Urine sent for culture and pending Based on previous cultures, sensitivities, and INNA's, ertapenem was chosen as drug of choice. 1g IV every 24 hours for 10-14 days, changed to meropenem 2 g every 8 hours for meningitis coverage Infectious disease consult. Isolation - contact #4 Acute kidney injury, present on admission, treatment initiated Serum creatinine 1.40, previous value in April was 1.02, was previously elevated in March of last year with the diagnosis of pyelonephritis. Normal saline IV 100 mL per hour monitor #5 prolonged QTC, chronicity unknown, present on admission, active QTC was 507 on admission, electrolytes were normal, Most likely due to medications Plaquenil is known to cause QTC prolongation. He is reportedly on this medication for off label use for urinary retention on the advice of Dr. Jackson and his urologist. We will hold Plaquenil and recheck EKG before discharge. #6 EKG changes from previous, present on admission, chronicity unknown. Active Troponin negative, but EKG was read as having worsening ischemia and infarction compared to EKG in April 2016. Asymptomatic at this time, changes may be due to acute stress. We will recheck EKG as above before discharge, referral to cardiology if necessary as an outpatient. Avoid QT prolonging medications #7 anemia, not present on admission, under evaluation - likely a chronic process, which was uncovered due to IV fluid therapy for treatment of sepsis - anemia panel ordered for AM #8 Systemic Lupus erythematosus, chronic, present on admission - holding Plaquenil until patient status improves for oral medication #9 hypertension, chronic, present on admission - holding amlodipine VTE Prophylaxis SCDs GI prophylaxis: Not indicated Pain management: IV Tylenol Disposition: patient will likely remain hospitalized for the unforeseen future and will possibly require rehabilitation if AMS is secondary to stroke. GI Prophylaxis: Not indicated VTE Prophylaxis: SCDs VTE Mechanical Devices: Intermittant Pneumatic CD Resuscitation Status: CPR: Attempt Resuscitation Attending Statement The patient was seen and examined together with Dr. Blood on 12-31-16 and I agree with the history, exam and plan as outlined in the note above. Juan Blood DO Dec 31, 2016 07:35 Jamil Bolanos MD Jan 01, 2017 12:24
[2016-12-31] MEDS ORDERED: Promethazine Inj 12.5 MG in Dextrose 5%-Pha MIX 50 ML IV PRN (19:50)
--- NOTE | 2016-12-31 20:36 | DRSVH ---
PROCEDURE: X-RAY CHEST ONE VIEW, PORTABLE ([id number]) INDICATIONS: 81 year-old male with worsening respiratory status. TECHNIQUE: One view of the chest was acquired. COMPARISON: [facility], CR, XR CHEST 1VW (PORTABLE), 12/30/2016, 18:49. [facility], CR, XR CHEST 1VW (PORTABLE), 04/28/2016, 18:24. [facility], CR, XR CHEST 2VW, 03/21, 9:28. FINDINGS: Surgical changes and devices: None. Lungs and pleura: No pleural effusions or pneumothorax. Lungs are clear. Mediastinum: Mediastinal contours appear normal. Heart size is normal. Bones and chest wall: No suspicious bony lesions. Nonacute posterior left sixth rib fracture is aga in noted. Overlying soft tissues appear unremarkable. IMPRESSION: No acute cardiopulmonary disease. Dictated by: Adam Carreon M.D. on 12/31/2016 at 20:34 Approved by: Adam Carreon M.D. on 12/31/2016 at 20:35
--- NOTE | 2016-12-31 20:50 | ABG ---
DateTimeAnalyzed 20:47:00 -_ pH ____7.387 - 7.350 7.450 pCO2 ___37.5__ -mmHg 35.0 45.0 pO2 ___65.5__ -mmHg 69.0 116 HCO3- ___22.0__ -mmol/L 22.0 26.0 ABE ___-2.1__ -mmol/L -2.0 2.0 tHb ___11.7__ -g/dL O2Hb ___91.1__ -% COHb ____0.9__ -% MetHb ____1.1__ -% sO2 ___93.0__ -% 25.0 FIO2 ___45.0__ -% Drawn By MK - Date/Time Notified____ 20:50:00 -_ Liter_Flow ____5.0__ -L/min Oxygen Device 1 __oxymask - B 755 -mmHg tO2 ___15.0__ -Vol% Topher test _Positive -
--- NOTE | 2016-12-31 22:44 | PCM.PNMED ---
Subjective Date of Service Dec 31, 2016 Subjective I was notified by RN at 7:58 PM the patient's oxygen demands have increased to 13 L per minute, and was only satting at 90% at the most. When I arrived at the room time was informed that there was a materials air and oxygen was not being correctly applied, but afterwards he was able to be put on 8 L and he was satting in the mid 90s. Nonetheless patient appeared to be in mild respiratory distress from his baseline, chest x-ray was ordered as well as arterial blood gas. Dr. Ruiz attending physician was also notified. Exam Vital Signs Vital Sign - Last Date Time Temp Pulse Resp B/P Pulse Ox O2 Delivery O2 Flow Rate FiO2 12/31/16 20:00 67 12/31/16 17:37 37.0 14 128/72 96 OxyMask 8.00 Intake and Output 12/30/16 12/30/16 12/31/16 Cumulative From/Thru 15:00 23:00 07:00 12/30/16 18:21 - 12/31/16 05:22 Intake Total 2000 ml 592 ml 2592 ml Output Total 300 ml 500 ml 800 ml Balance 1700 ml 92 ml 1792 ml Intake Oral 100 ml 100 ml IV Total 2000 ml 492 ml 2492 ml Output Urine Total 300 ml 500 ml 800 ml # Voids 1 1 Exam Patient lying in bed, unable to be fully aroused. Shaking and rigors. Respiratory rate varied between 20 and 30 per minute. Lung barajas were clear from rales, wheezing, rhonchi. Heart rate was regular, no clicks murmurs or rubs appreciated Patient was mildly diaphoretic, noticeably elevated temperature. IVs and Medications Medications Reviewed: Medications were reviewed in detail Lab and Diagnostics Result Diagram: 12/31/168 12/31/168 Microbiology Blood cultures and urine cultures pending X-Rays, CTs and MRIs CT Abd / Pelvis Interpretation performed 12/30/2016 CONCLUSION: No CT evidence of acute intra-abdominal pathology. Diverticulosis without CT evidence of diverticulitis. Mildly enlarged prostate gland. Transmitted to ED by Ace Cordova M.D. at 12/30/2016 - 10:58:39 PM PDT Study type: Abdominal CT no contrast Interpretation / Wet Read by: Interpret - Radiologist Chest Xray Interpretation: Performed 12/30/2016 IMPRESSION: Mild appearance of increased pulmonary vascularity with bibasilar streaky opacities. The latter could be lead customer service representative of more prominent basilar edema versus developing airspace disease such as atelectasis and/or pneumonia. Dictated by: Yadira Arora M.D. on 12/30/2016 at 19:34 View: Portable, 1 view Interpretation / Wet Read by: Interpret - Radiologist 12-lead ECG Sinus rhythm, rate 97. Normal axis "inferior infarct, old. Prolonged QT interval at 507, compared with previous EKG of April 2016 there is new or worsened ischemia or infarction. Significant repolarization change. Assessment & Plan 81-year-old gentleman, with rigors, sweats, fever up to 103 documented by nurse , perceived to be in respiratory distress. Portal chest x-ray and stat ABG were performed: Wet read by attending physician a chest x-ray did not show significant pulmonary edema, film quality, and blunting of diaphragmatic angle is secondary to decreased respiratory effort. ABG: PH 7.38, PCO2 38, PaO2 65.5, bicarbonate 22.0 Patient had supplemental oxygen turned off for a period of 5 minutes C baseline saturation, it dropped down to 85%. Returned to 95% at 4 L. Findings were discussed with the family, reviewed plan with family and nurse. IV Tylenol every 6 hours scheduled. GI Prophylaxis: Not indicated VTE Prophylaxis: SCDs VTE Mechanical Devices: Intermittant Pneumatic CD Resuscitation Status: CPR: Attempt Resuscitation Attending Statement Pt seen and examined by myself and agree with above plan. Neil Canseco DO Dec 31, 2016 22:44 Yaritza Ruiz MD Jan 01, 2017 06:31
[2016-12-31] MEDS ORDERED: Meropenem Inj 2,000 MG in 0.9% Sodium Chloride 100 ML IV SCH (23:30)
[2017-01-01] VITALS (9 sets, daily range): BP systolic 103–130; BP diastolic 31–73; PULSE 49–79; RESP 18–27; O2SAT 92–98
--- NOTE | 2017-01-01 01:20 | NUR ---
P) LOC/fever Pt. alternating fever and chills, T-max 39c axillary so far this shift, diaphoresis alternating with severe shivering, initially denied pain, then told his daughter he "hurt all over". Lungs equal with coarse breath sounds and decreased in bases bilat. SPO2 in the l0w to mid 90's on 6L N/C, did not tolerate the oxymask. LOC improving, speaking in 2-3 word phrases, nodding and shaking head appropriately. I) Consulted with hospitalist and resident, will give tylenol q6h for 24h, will pass on to day shift. Lots of family teaching on sepsis and care, moved pt. to hardwire room for better monitoring. E) Resting more quietly, family happier with care, last temp 38c axillary.
[2017-01-01] MEDS: Ondansetron 2 mg/mL 2 mL Inj IVPUSH PRN ×3 (01:42→22:29)
[2017-01-01] MEDS: Acetaminophen IV 1,000 MG in IV Premix 1 EACH IV PRN ×2 (02:52→08:55)
--- NOTE | 2017-01-01 04:30 | NUR ---
P) G/U Pt. increasingly restless and agitated, c/o generalized pain, attempted to void in urinal x2 with 1-5ml results, when asked if he wanted a catheter, pt. said that he did. I) Consulted Dr. Canseco and received permission to place a bledsoe for urinary retention. E) Bledsoe placed, immediately filled cath bag to 1300ml level, pt. agreed he felt better, resting more quietly.
[2017-01-01 04:35] LABS: BASOPHILS % (AUTO) 0.3 % (0-3); EOSINOPHILS % (AUTO) 0.2 % (0-5); MONOCYTES % (AUTO) 8.7 % (4-12); Mean Corpuscular Hemoglobin 28.8 pg (27.0-35.0); Mean Corpuscular Volume 90.8 fL (81-100); Platelet Count 203 bil/L (150-400)
[2017-01-01 04:41] LABS: INR 1.06 ratio
[2017-01-01 04:56] LABS: Magnesium 2.1 mg/dL (1.6-2.6); Phosphorus 2.5 mg/dL (2.5-4.9)
[2017-01-01] MEDS: Lactobacillus Rhamnosus 10 Bil Unit Capsule PO SCH ×2 (07:40→20:19)
--- NOTE | 2017-01-01 10:20 | DRSVH ---
PROCEDURE: X-RAY CHEST ONE VIEW, PORTABLE ([id number]) INDICATIONS: acute respiratory failure TECHNIQUE: One view of the chest was acquired. COMPARISON: [facility], CR, XR CHEST 1VW (PORTABLE), 12/31/2016, 20:01. FINDINGS: Surgical changes and devices: None. Lungs and pleura: Interstitium is prominent the mild edema suspected. Medial bibasilar airspace opac ities. Mediastinum: Mediastinal contours appear normal. Heart size is normal. Bones and chest wall: No suspicious bony lesions. Overlying soft tissues appear unremarkable. IMPRESSION: Mild edema suspected and either atelectasis versus aspiration/pneumonia involving the med ial lung bases. Dictated by: Zay Lovell RRA Interpreted: Azucena Charles MD on 01/01/2017 at 10:18 Transcribed by: JOHANNA on 01/01/2017 at 10:20 Approved by: Azucena Charles MD, PhD on 01/01/2017 at 17:02
--- NOTE | 2017-01-01 10:50 | NUR ---
Evaluation completed. Please go to "Notes" then click on "Assessments and Notes" (bottom left corner of screen). Then select appropriate discipline tab on top of screen.
--- NOTE | 2017-01-01 11:26 | PROG NOTE ---
[address] [address] PROGRESS NOTE PATIENT: WENDY ARIZA : 1935 MR#: [id number] ADMIT: 12/30/2016 JOB ID: [id number] DATE: 01/01/2017 INFECTIOUS DISEASE FOLLOWUP NOTE: REASON FOR FOLLOWUP: Complicated urinary tract infection, with altered mental status. INTERVAL HISTORY: Recall that yesterday the patient was still very encephalopathic. Because of concerns about meningitis, the Internal Medicine team attempted a lumbar puncture but was unsuccessful, and they switched the patient from ertapenem to meropenem at my suggestion to cover for the possibility of underlying ESBL E. coli meningitis complicating this infectious process. Shortly after this switch to meropenem was made, however, the patient's encephalopathy basically cleared and since that time, he has remained awake, alert and lucid. Today, the patient states he has no headache, his mental status is normal and he has no stiff neck. He is not reporting any additional fever or chills and basically is feeling rapidly back towards his normal self. PHYSICAL EXAMINATION: Reveals a gentleman who was febrile up until 4 a.m. at 38 degrees. He is 37.1 now. Pulse 60, respiratory rate 20, blood pressure 130/54, saturating well on 6 L. The patient's mental status is entirely normal. Eyes without conjunctivitis. Neck is supple. Lungs with a few crackles at the bases but relatively clear. Cardiac tones: Regular rate and rhythm, and somewhat bradycardic with a pulse only around 50 on the monitor. Abdomen soft and nontender. LABORATORIES: Include a white count normalized at 9800. Creatinine 1.24, down from 1.4 recently. LFT normal. Procalcitonin is 0.6, which is actually identical to yesterday. His blood cultures are negative but urine is growing an ESBL E. coli, which is sensitive to the carbapenems he is receiving, as well as Bactrim. A chest x-ray done this morning shows atelectasis, aspiration or early pneumonia involving the bases. IMPRESSION: This patient is doing much better with respect to his complicated urinary tract infection with altered mental status. He does not have evidence of bacteremia. I do not think there is any clinical reason to think he has meningitis, as he fairly abruptly returned to his normal mental status yesterday afternoon and has a supple neck with no headache or neurologic symptoms. At this point, he is rapidly improving. Of note, just before admission, he tried a single tablet of Bactrim and became very nauseated. Bactrim or Septra, as it is sometimes known, is the only possible oral antibiotic to help to treat this infection, so we will either have to send him home on oral Bactrim after we show he tolerates it here in the hospital or he will need to go home, once again, with once a day ertapenem and return to the [facility] to get it for a sustained period. RECOMMENDATIONS: 1. Will continue with meropenem at least until tomorrow. 2. Discussed with team 3. Probable switch back to ertapenem tomorrow if he looks clinically well. 4. Perhaps tomorrow will try him on some oral Bactrim while we continue with the ertapenem just to see if he tolerates it. If he does, he can probably go home in another day or two on oral Bactrim for a sustained period. If he does not tolerate the oral Bactrim because of nausea and vomiting, we will have no choice but to send him home with IV ertapenem for a period of 10 days or so. JASPAL
[2017-01-01] MEDS: Meropenem Inj 2,000 MG in 0.9% Sodium Chloride 100 ML IV SCH ×2 (12:02→23:14)
--- NOTE | 2017-01-01 18:51 | NUR ---
Speech/Fevers ENROBING MACHINE CORDER evaluated pt, see note. PO meds to be given whole in applesauce. Afebrile this shift. Continues on IV ABX. Nausea this afternoon, no emesis, IV zofran effective. PT to evaluate pt tomorrow. Turning pt in bed, active ROM.
--- NOTE | 2017-01-01 19:27 | PCM.PNMED ---
Subjective Date of Service Jan 01, 2017 Subjective overnight: Clifton catheter placed for urinary retention with 1300 mL of urine out Today: Patient is alert and oriented and responding appropriately to questions and following commands. Initial neuro checks were negative for signs of acute intracranial process. Altered mental status likely secondary to sepsis. Physical therapy and speech therapy consulted for evaluation. Exam Vital Signs Vital Sign - Last Date Time Temp Pulse Resp B/P Pulse Ox O2 Delivery O2 Flow Rate FiO2 01/01/17 07:32 Supplement Oxygen 01/01/17 07:30 36.8 57 21 130/54 98 6.00 Intake and Output 12/31/16 12/31/16 01/01/17 Cumulative From/Thru 15:00 23:00 07:00 12/30/16 18:21 - 01/01/17 05:39 Intake Total 0 ml 2763 ml 5355 ml Output Total 1208 ml 2008 ml Balance 0 ml 1555 ml 3347 ml Intake Oral 0 ml 0 ml 100 ml IV Total 2763 ml 5255 ml Output Urine Total 1208 ml 2008 ml # Voids 3 3 7 # Bowel Movements 0 0 Exam General: Elderly man laying in bed, no acute distress, patient is mildly shaky Eyes: anisocoria with sluggish pupillary response right eye greater 4mm than left 2mm, extraocular motion intact, anicteric sclera HENT: Normocephalic, atraumatic, moist mucus membranes with no central cyanosis or cobblestoning mucosa Cardiovascular: Regular rate and rhythm, no clicks murmurs rubs, peripheral pulses 2/4 equal bilaterally at radial and dorsalis pedis Pulmonary: Clear to auscultation bilaterally, no W/R/R. Abdominal: normoactive bowel sounds present 4, Soft, patient appears uncomfortable with palpation of abdomen, no hepatosplenomegaly Extremities: No edema appreciated. No tenderness, asymmetry. Neuro: Cranial nerves II through XII grossly intact no severe dysdiadochokinesia no pronator drift sensation intact and extremities : no Clifton catheter MSK: able to move extremities Psych: Flat affect Lab and Diagnostics Result Diagram: 01/01/178 01/01/17417 Microbiology Blood cultures and urine cultures pending X-Rays, CTs and MRIs CT Abd / Pelvis Interpretation performed 12/30/2016 CONCLUSION: No CT evidence of acute intra-abdominal pathology. Diverticulosis without CT evidence of diverticulitis. Mildly enlarged prostate gland. Transmitted to ED by Ace Cordova M.D. at 12/30/2016 - 10:58:39 PM PDT Study type: Abdominal CT no contrast Interpretation / Wet Read by: Interpret - Radiologist Chest Xray Interpretation: Performed 12/30/2016 IMPRESSION: Mild appearance of increased pulmonary vascularity with bibasilar streaky opacities. The latter could be sales representative publications of more prominent basilar edema versus developing airspace disease such as atelectasis and/or pneumonia. Dictated by: Yadira Arora M.D. on 12/30/2016 at 19:34 View: Portable, 1 view Interpretation / Wet Read by: Interpret - Radiologist 12-lead ECG Sinus rhythm, rate 97. Normal axis "inferior infarct, old. Prolonged QT interval at 507, compared with previous EKG of April 2016 there is new or worsened ischemia or infarction. Significant repolarization change. Assessment & Plan 81-year-old man with history of urinary tract infections of ESBL Escherichia coli, presents with UTI symptoms, found to have urinary tract infection, signs and symptoms of sepsis, refractory to previous outpatient antibiotics, responded to IV fluids and ertapenem. Hospital day 2 #1 Acute severe sepsis, present on admission, improving on admission Heart rate 121, intermittent tachypnea up to 32 breaths per minute , white count 14.4, identified source urinary tract. Initial lactic acid was 7.4, however on recheck was 1.1 four hours later. Received D5 half-normal saline, changed to normal saline 100 mL per hour. Repeat CBC CMP in the morning Pro-calcitonin to trend Blood cultures 2 pending Treatment for urinary tract infection as below #2 acute altered mental status, not present on admission, stable CT scan performed overnight was negative for intracranial hemorrhage Rectal aspirin given for possible thromboembolic stroke Lumbar puncture was unsuccessful to test for possible meningitis Empiric meningitis treatment with meropenem 2 g every 8 hours Continue to monitor and evaluate Continue aspirin for possible thromboembolic cerebrovascular accident Cleared mental status likely due to clearing of sepsis infection more than stroke or meningitis #3 acute Urinary tract infection, present on admission, treatment initiated, improving History of ESBL Escherichia coli urinary tract infections, similar symptoms and presentation, urinalysis positive for infection. Urine sent for culture and pending Based on previous cultures, sensitivities, and INNA's, ertapenem was chosen as drug of choice. 1g IV every 24 hours for 10-14 days, changed to meropenem 2 g every 8 hours for meningitis coverage Infectious disease consult. Isolation - contact #4 Acute kidney injury, present on admission, treatment initiated Serum creatinine 1.40, previous value in April was 1.02, was previously elevated in March of last year with the diagnosis of pyelonephritis. Normal saline IV 100 mL per hour monitor #5 prolonged QTC, chronicity unknown, present on admission, active QTC was 507 on admission, electrolytes were normal, Most likely due to medications Plaquenil is known to cause QTC prolongation. He is reportedly on this medication for off label use for urinary retention on the advice of Dr. Jackson and his urologist. We will hold Plaquenil and recheck EKG before discharge. #6 EKG changes from previous, present on admission, chronicity unknown. Active Troponin negative, but EKG was read as having worsening ischemia and infarction compared to EKG in April 2016. Asymptomatic at this time, changes may be due to acute stress. We will recheck EKG as above before discharge, referral to cardiology if necessary as an outpatient. Avoid QT prolonging medications #7 anemia, not present on admission, under evaluation - likely a chronic process, which was uncovered due to IV fluid therapy for treatment of sepsis - anemia panel ordered for AM #8 Systemic Lupus erythematosus, chronic, present on admission - holding Plaquenil until patient status improves for oral medication #9 hypertension, chronic, present on admission - holding amlodipine VTE Prophylaxis SCDs GI prophylaxis: Not indicated Pain management: IV Tylenol Disposition: patient will likely remain hospitalized for the unforeseen future and will possibly require rehabilitation if AMS is secondary to stroke. Pain Evaluation: Adequate Pain Control GI Prophylaxis: Not indicated VTE Prophylaxis: Sub-Q Heparin (Unfractionated), SCDs VTE Mechanical Devices: Intermittant Pneumatic CD Resuscitation Status: CPR: Attempt Resuscitation Attending Statement The patient was seen and examined together with Dr. Blood on 01-01-17 and I agree with the history, exam and plan as outlined in the note above. Juan Blood DO Jan 01, 2017 07:49 Jamil Bolanos MD Jan 02, 2017 13:17
[2017-01-01] MEDS: Heparin 5,000 Unit/mL Inj SUBQ SCH (23:47)
[2017-01-02] VITALS (10 sets, daily range): BP systolic 113–154; BP diastolic 51–70; PULSE 47–80; RESP 15–22; O2SAT 91–100
--- NOTE | 2017-01-02 01:36 | NUR ---
Agitation/Restless/Nausea/Pain Pt awake and oriented x3 but can be forgetful at times. Pt able to answer questions appropriately. He has delay to answer at times. Family expressing concern about not sleeping very well. Pt had dose of 12.5 Phenergan and Tylenol for generalized pain. was at bedside and educated about the Phenergan. Daughter took over for the night and has lots of questions and concerns. Answered question and concerns appropriately. Pt noted to be sleeping after dose of Tylenol and Phenergan. Daughter reported pt nap for about an 1 hour then he started getting restless and agitated. VSS. Afebrile. Pt still oriented to self, and family but mumbles of confused conversation noted. Daughter request for physician to come assess pt. Pt able to formulate sentence and answer the MD questions during assessment. MD educated daughter about poss hospital delirium. Printed info about hospital delirium given to pt's daughter. Pt noted to have calmed down after frequent tossing and turning in bed. Daughter report that pt has had back issues in the past. Heat pack applied and frequent repositioning done. Zofran given for c/o nausea. Tylenol given to be on top of pt's generalized discomfort. Telemetry SB in 40s-50s. Md made aware of 14 beats Vtach. Pt was asymptomatic. VSS. Will continue to monitor. Addendum: 01/02/17 at 0735 by DEDRICK VELASQUEZ RN Pt denies any further nausea this am. Pt noted to be calmer this am during bed report. He was oriented and answering questions appropriately.
[2017-01-02 04:41] LABS: BASOPHILS % (AUTO) 0.4 % (0-3); EOSINOPHILS % (AUTO) 7.5 % (0-5); MONOCYTES % (AUTO) 9.2 % (4-12); Mean Corpuscular Hemoglobin 28.8 pg (27.0-35.0); Mean Corpuscular Volume 90.3 fL (81-100); NEUTROPHILS % (AUTO) 65.5 % (40-74); Platelet Count 173 bil/L (150-400)
[2017-01-02] MEDS: Lactobacillus Rhamnosus 10 Bil Unit Capsule PO SCH ×2 (07:52→20:05)
[2017-01-02] MEDS: Heparin 5,000 Unit/mL Inj SUBQ SCH ×2 (08:02→16:39)
--- NOTE | 2017-01-02 10:41 | NUR ---
Social Work: Continued Discharge Planning D: Pt discussed in am rounds. Pt is not medically stable for discharge at this time. PT recommendation is currently for SNF as pt is deconditioned and will require gait stability. MUSCULOSKELETAL PHYSICIAN met with pt's to discuss recommendations. Pt currently with RN. MUSCULOSKELETAL PHYSICIAN and PT discussed recommendations. would like to discuss recommendations with her daughter. She is concerned about managing pt's care at home and also knows that the pt will not be receptive to skilled rehab. She is agreeable to a referral placed to [facility] in [place]. MUSCULOSKELETAL PHYSICIAN spoke with [facility] who will provide referral. Pt discussed in am rounds. Pt abx needs are still undetermined at this time. Pt may requires IV Abx. Awaiting final recommendations from infectious disease. PPW on chart PASSR Completed. A: Pt who previously was at home with his spouse and I. P: Evolving; [facility] [place] is reviewing. Anticipate pt to require SNF for PT and possible RN for IV Abx. MUSCULOSKELETAL PHYSICIAN to continue to follow pt's clinical progress. R/o IV ABX at d/c. SOHEILA Quinteros
--- NOTE | 2017-01-02 10:48 | NUR ---
Gave access and faxed facesheet to [employer] per HYDRAULIC PILE HAMMER OPERATOR
--- NOTE | 2017-01-02 11:04 | PROG NOTE ---
[address] [address] PROGRESS NOTE PATIENT: WENDY ARIZA : 1935 MR#: [id number] ADMIT: 12/30/2016 JOB ID: [id number] DATE: 01/02/2017 INFECTIOUS DISEASE FOLLOW UP NOTE: REASON FOR FOLLOWUP: Complicated urinary tract infection due to ESBL E. coli with associated encephalopathy. DATE: INTERVAL HISTORY: The patient is completely resolved in his abnormal mental status of a couple days ago. This morning he is awake and alert. He denies fevers, chills or sweats. He has no flank pain. No significant respiratory complaint and no nausea or vomiting. He is tolerating his intravenous antibiotics quite well which currently consist of meropenem though were planning to switch back to ertapenem. He told us that his prior experience with Bactrim was confusing because he was at that time already quite sick with his urinary tract infection and he developed nausea and vomiting so were going to retry him on Bactrim at this point to see if he can tolerate oral sulfa drugs and he agrees with that plan. PHYSICAL EXAMINATION: Reveals an afebrile gentleman, temperature 36.7, pulse 50, respiratory rate 22, blood pressure 123/55, saturating well on 2 L. We saw the patient, up ambulating in the pinedo with physical therapy and he is certainly becoming more mobile as the days go by. His oral cavity is unremarkable. Mental status seems clear. Lungs without significant rales or rhonchi posteriorly. No flank tenderness is noted. Abdomen benign. LABORATORIES: Include white count all the way down to normal at 8000, normal differential at this point as well, except for the appearance of 7% eosinophils which is likely secondary to antibiotics. Creatinine has dropped down to 0.95. LFTs are normal. Procalcitonin continues to decline and is down to 0.37. Urinalysis had packed white cells, of course, and grew an ESBL E. coli. Blood cultures x8 bottles have all been negative. Yesterday we have a chest x-ray, which shows atelectasis, aspiration pneumonia or pulmonary edema. IMPRESSION: This patient seems to be doing very well with his complicated ESBL E. coli urinary tract infection and associated encephalopathy. Recall this is the patient who last summer had a bacteremic complicated ESBL E. coli urinary tract infection. What to do with him in terms of management from this point forward is a bit difficult. We could keep the patient on ertapenem as a once a day IV antibiotic to complete a 14 day course of antibiotics. The only other option I see here would be to place him on oral Bactrim for an extended course. The problem with this is that he seemed to experience some significant gastrointestinal toxicity when he attempted it just prior to this admission but it is unclear if that was due to Bactrim or a developing illness. RECOMMENDATIONS: 1. Will switch the meropenem back to ertapenem today. 2. He will either require a completion of a 14 day total IV antibiotic course using once a day ertapenem and coming to the [facility] or we can transition to [facility]. 3. We will start the patient on Bactrim today at a dose of one double-strength tablet twice a day. This will allow us to evaluate his potassium as well as his GI tolerance of the Bactrim. 4. I will be out of town the next three days but Dr. Fonseca will be coming by and checking on his situation tomorrow and we will discuss this by telephone. Our plan would be to make a final decision tomorrow regarding whether to send the patient home on an extended course of Bactrim or extended course of IV ertapenem, but given the multi-drug resistant nature of this organism, there are really no other logical options.
[2017-01-02] MEDS: Trimethoprim-Sulfa 160 mg-800 mg Tablet PO SCH ×2 (11:21→20:05)
[2017-01-02] MEDS: Ertapenem Inj 1,000 MG in 0.9% Sodium Chloride 50 ML IV SCH (11:27)
--- NOTE | 2017-01-02 13:50 | NUR ---
[facility] has accepted with Dr. Tom to follow MEAT DEPARTMENT MANAGER spoke with Jose, hospital education coordinator at [facility], who provided acceptance.
--- NOTE | 2017-01-02 14:55 | NUR ---
NUTRITION ASSESSMENT: ASSESS: Pt is an 81yo M admitted for UTI and sepsis. ID is following. Pt was experiencing some AMS but this seems to be improving. ST has evaluated pt and placed him on a dysphagia mechanical diet with NT liquids. Pox1 meal was 25%. Wt has been stable through hospital stay. PMHX: Lupus, pyelonephritis, HTN, pancreatitis LABS: Reviewed. Ca 7.7, Alb 2.8 MEDS: Reviewed. zofran GI: 0 BM recorded SKIN: [place] 13 CURRENT WTS: 72.4kg, BMI 22.9kg/m2, admit wt 72kg DIET: Dysphagia Mechanical, NT. PO 25% x1 meal EST. NEEDS: Kcals: 1810-2170kcal/day (25-30kcal/kg) Pro: 85-95g/day (1.0-1.2g/kg) NUTRITION DIAGNOSIS: 1.) Chew/swallow difficulty related to weakness as evidence by need for dysphagia mechanical diet with NT liquids. NUTRITION INTERVENTION: 1.) Continue diet per ST 2.) Will add NT Ensure on L and D trays MONITOR / EVAL: PO, ST, wt, GI, labs, POC, nutrition status. Will continue to monitor per moderate nutrition risk guidelines
[2017-01-02] MEDS: Ondansetron 2 mg/mL 2 mL Inj IVPUSH PRN (16:33)
[2017-01-02] MEDS: Acetaminophen IV 1,000 MG in IV Premix 1 EACH IV PRN (16:49)
--- NOTE | 2017-01-02 18:22 | NUR ---
Ambulation status Patient walked with PT this afternoon but when getting the patient up to the chair from the bed, 2 person maximum assist was needed. Patient very weak, unable to hold own weight. Persistently leaning to the right. When getting patient back to the bed from the chair, less assistance was needed. Able to wear own weight.
--- NOTE | 2017-01-02 20:10 | PCM.PNMED ---
Subjective Date of Service Jan 02, 2017 Subjective overnight: Mild delirium overnight with patient's family requested overnight doctor to evaluate consistent with sundowning, 14 beats of V. tach, no acute events otherwise noted Today: Patient when initially seen was in good spirits and no pain no fevers or chills. Patient stated he was feeling much much better. Patient noted no unilateral weakness or difficulty speaking. Family later asked for patient to be reevaluated later due to back pain fever and chills. Family was reeducated about the progression of the disease process and the fact that this is expected given his pyelonephritis. Family requested medication to treat the back pain besides Tylenol. Given patient's delirium no narcotics will be given at this time treating pain currently with IV Tylenol. Consider a 1 time dose of Toradol given the patient's significantly improved creatinine. Exam Vital Signs Vital Sign - Last Date Time Temp Pulse Resp B/P Pulse Ox O2 Delivery O2 Flow Rate FiO2 01/02/17 05:06 62 01/02/17 04:32 Supplement Oxygen 01/02/17 04:07 36.5 15 117/60 95 3.00 Intake and Output 01/01/17 01/01/17 01/02/17 Cumulative From/Thru 15:00 23:00 07:00 12/30/16 18:21 - 01/02/17 05:21 Intake Total 1215 ml 1470 ml 8040 ml Output Total 800 ml 800 ml 3608 ml Balance 415 ml 670 ml 4432 ml Intake Oral 320 ml 200 ml 620 ml IV Total 895 ml 1270 ml 7420 ml Output Urine Total 800 ml 800 ml 3608 ml # Voids 7 # Bowel Movements 0 0 Exam General: Elderly man sitting in bed, no acute distress, patient is mildly shaky Eyes: anisocoria with sluggish pupillary response right eye greater 4mm than left 2mm, extraocular motion intact, anicteric sclera HENT: Normocephalic, atraumatic, moist mucus membranes with no central cyanosis or cobblestoning mucosa Cardiovascular: Regular rate and rhythm, no clicks murmurs rubs, peripheral pulses 2/4 equal bilaterally at radial and dorsalis pedis Pulmonary: Clear to auscultation bilaterally, no W/R/R. Abdominal: normoactive bowel sounds present 4, Soft, patient appears uncomfortable with palpation of abdomen, no hepatosplenomegaly Extremities: No edema appreciated. No tenderness, asymmetry. Neuro: Cranial nerves II through XII grossly intact : no Clifton catheter MSK: able to move extremities Psych: Flat affect and normal mood Lab and Diagnostics Result Diagram: 01/02/1743301/02/17433 Microbiology Blood cultures and urine cultures pending X-Rays, CTs and MRIs CT Abd / Pelvis Interpretation performed 12/30/2016 CONCLUSION: No CT evidence of acute intra-abdominal pathology. Diverticulosis without CT evidence of diverticulitis. Mildly enlarged prostate gland. Transmitted to ED by Ace Cordova M.D. at 12/30/2016 - 10:58:39 PM PDT Study type: Abdominal CT no contrast Interpretation / Wet Read by: Interpret - Radiologist Chest Xray Interpretation: Performed 12/30/2016 IMPRESSION: Mild appearance of increased pulmonary vascularity with bibasilar streaky opacities. The latter could be business office representative of more prominent basilar edema versus developing airspace disease such as atelectasis and/or pneumonia. Dictated by: Yadira Arora M.D. on 12/30/2016 at 19:34 View: Portable, 1 view Interpretation / Wet Read by: Interpret - Radiologist 12-lead ECG Sinus rhythm, rate 97. Normal axis "inferior infarct, old. Prolonged QT interval at 507, compared with previous EKG of April 2016 there is new or worsened ischemia or infarction. Significant repolarization change. Assessment & Plan 81-year-old man with history of urinary tract infections of ESBL Escherichia coli, presents with UTI symptoms, found to have urinary tract infection, signs and symptoms of sepsis, refractory to previous outpatient antibiotics, responded to IV fluids and ertapenem. Hospital day 3 #1 Acute severe sepsis, present on admission, resolved on admission Heart rate 121, intermittent tachypnea up to 32 breaths per minute , white count 14.4, identified source urinary tract. Initial lactic acid was 7.4, however on recheck was 1.1 four hours later. Received D5 half-normal saline, changed to normal saline 100 mL per hour. Repeat CBC CMP in the morning Pro-calcitonin to trend Blood cultures 2 pending Treatment for urinary tract infection as below #2 acute altered mental status, not present on admission, resolved CT scan was negative for intracranial hemorrhage Rectal aspirin given for possible thromboembolic stroke Lumbar puncture was unsuccessful to test for possible meningitis Empiric meningitis treatment with meropenem 2 g every 8 hours Continue to monitor and evaluate Continue by mouth aspirin for possible thromboembolic cerebrovascular accident Cleared mental status likely due to clearing of sepsis infection more than stroke or meningitis perform MRI prior to discharge Low-dose Seroquel 6.125 mg available overnight for agitation given recent delirium considered sundowning overnight #3 acute Urinary tract infection, present on admission, treatment initiated, improving History of ESBL Escherichia coli urinary tract infections, similar symptoms and presentation, urinalysis positive for infection. Urine sent for culture and pending Based on previous cultures, sensitivities, and INNA's, ertapenem was chosen as drug of choice. 1g IV every 24 hours for 10-14 days, changed to meropenem 2 g every 8 hours for meningitis coverage Infectious disease consult. Isolation - contact #4 Acute kidney injury, present on admission, resolved Serum creatinine 1.40 on admission, currently 0.95 Normal saline IV 100 mL per hour monitor #5 prolonged QTC, chronicity unknown, present on admission, active QTC was 507 on admission, electrolytes were normal, Most likely due to medications Plaquenil is known to cause QTC prolongation. He is reportedly on this medication for off label use for urinary retention on the advice of Dr. Jackson and his urologist. We will hold Plaquenil and recheck EKG before discharge. #6 EKG changes from previous, present on admission, chronicity unknown. Active Troponin negative, but EKG was read as having worsening ischemia and infarction compared to EKG in April 2016. Asymptomatic at this time, changes may be due to acute stress. We will recheck EKG as above before discharge, referral to cardiology if necessary as an outpatient. Avoid QT prolonging medications #7 anemia, not present on admission, under evaluation - likely a chronic process, which was uncovered due to IV fluid therapy for treatment of sepsis #8 Systemic Lupus erythematosus, chronic, present on admission - holding Plaquenil until patient status improves for oral medication #9 hypertension, chronic, present on admission - holding amlodipine VTE Prophylaxis SCDs GI prophylaxis: Not indicated Pain management: IV Tylenol Disposition: patient will likely remain hospitalized for the next 2 days and may require some rehabilitation depending on physical therapy's evaluation over the coming days. GI Prophylaxis: Not indicated VTE Prophylaxis: Sub-Q Heparin (Unfractionated), SCDs VTE Mechanical Devices: Intermittant Pneumatic CD Resuscitation Status: CPR: Attempt Resuscitation Attending Statement The patient was seen and examined together with Dr. Blood on 01-02-17 and I agree with the history, exam and plan as outlined in the note above. Juan Blood DO Jan 02, 2017 07:47 Jamil Bolanos MD Jan 03, 2017 12:45
[2017-01-02 21:23] LABS: Unsaturated Iron Binding 121.5 ug/dL
[2017-01-03] VITALS (8 sets, daily range): BP systolic 129–157; BP diastolic 41–82; PULSE 45–54; RESP 18–52; O2SAT 92–97
[2017-01-03] MEDS: Heparin 5,000 Unit/mL Inj SUBQ SCH ×3 (00:02→17:46)
[2017-01-03] MEDS: Acetaminophen IV 1,000 MG in IV Premix 1 EACH IV PRN ×2 (00:04→06:10)
[2017-01-03 04:21] LABS: BASOPHILS % (AUTO) 0.5 % (0-3); EOSINOPHILS % (AUTO) 5.9 % (0-5); MONOCYTES % (AUTO) 9.7 % (4-12); Mean Corpuscular Hemoglobin 28.8 pg (27.0-35.0); Mean Corpuscular Volume 86.8 fL (81-100); NEUTROPHILS % (AUTO) 67.6 % (40-74); Platelet Count 216 bil/L (150-400)
--- NOTE | 2017-01-03 06:57 | NUR ---
Pain Pt stating having some back pain this shift x1. Administered IV Tylenol and effective. Pt able to rest most of shift with intermittent bouts of restlessness. Pt continues to be bradycardic at times and asymptomatic. VSS and Tele SB/R 40's to 60's.
[2017-01-03] MEDS: Trimethoprim-Sulfa 160 mg-800 mg Tablet PO SCH ×2 (08:51→20:30)
[2017-01-03] MEDS: Ertapenem Inj 1,000 MG in 0.9% Sodium Chloride 50 ML IV SCH (08:51)
[2017-01-03] MEDS: Lactobacillus Rhamnosus 10 Bil Unit Capsule PO SCH ×2 (08:52→20:30)
--- NOTE | 2017-01-03 15:24 | NUR ---
Social Work: Continued Discharge Planning D: Pt discussed with . ID is following the pt and making recommendations for abx. It is expected that pt will require a 14 day course of IV Ertapenem. The pt has been accepted to [facility] in [place] however due to the high cost of Ertapenem pt cannot discharge until this is completed. PARATRANSIT OPERATOR confirmed this with Jose, office coordinator receptionist at [facility]. They will continue to follow pt's clinical progress and determine it pt still has a skillable need once IV ABX course is completed. A: Pt who requires more physical therapy to regain functional mobility P: Evolving; Pt to remain at [facility] until IV Ertapenem is completed. PARATRANSIT OPERATOR to follow pt's progress with PT closely- if pt is able to safely discharge home prior to completion of IV ABX pt may be able to complete the remaining course of ABX at [facility] [place]. If pt is not safe to discharge after IV-Abx is completed, pt has been accepted at [facility] with Dr. Tom to follow. SOHEILA Quinteros
--- NOTE | 2017-01-03 19:04 | NUR ---
Activity/Nuero's Patient a/o x 3, but forgetful at times, denies pain, nausea or sob. Patient has gen weakness bilat and needs freq cueing on gait, balance and amb. Patient oob for all meals with 1-2 person assist. Amb in room and showered this afternoon. VSS, tele SB-SR. Family at bedside to assist with care.
--- NOTE | 2017-01-03 20:01 | PCM.PNMED ---
Subjective Date of Service Jan 03, 2017 Subjective overnight: No acute events overnight Today: Patient states he feels better. His back pain is rated out of 2 out of 10. No recurrence of fever or chills. He states that he still feels significantly weaker than normal. Exam Vital Signs Vital Sign - Last Date Time Temp Pulse Resp B/P Pulse Ox O2 Delivery O2 Flow Rate FiO2 01/03/17 05:47 50 01/03/17 03:39 36.4 20 145/41 93 Nasal Cannula 1.00 Intake and Output 01/02/17 01/02/17 01/03/17 Cumulative From/Thru 15:00 23:00 07:00 12/30/16 18:21 - 01/03/17 06:13 Intake Total 1851 ml 0 ml 9891 ml Output Total 1750 ml 2775 ml 8133 ml Balance 101 ml -2775 ml 1758 ml Intake Oral 450 ml 0 ml 1070 ml IV Total 1401 ml 8821 ml Output Urine Total 1750 ml 2775 ml 8133 ml # Voids 7 # Bowel Movements 0 Exam General: Elderly man sitting in bed, no acute distress, patient is mildly shaky Eyes: anisocoria right eye greater 4mm than left 2mm, extraocular motion intact , anicteric sclera HENT: Normocephalic, atraumatic, moist mucus membranes with no central cyanosis or cobblestoning mucosa Cardiovascular: Regular rate and rhythm, no clicks murmurs rubs, peripheral pulses 2/4 equal bilaterally at radial and dorsalis pedis Pulmonary: Clear to auscultation bilaterally, no W/R/R. Abdominal: normoactive bowel sounds present 4, Soft, patient appears uncomfortable with palpation of abdomen, no hepatosplenomegaly Extremities: No edema appreciated. No tenderness, asymmetry. Neuro: Cranial nerves II through XII grossly intact : no Clifton catheter MSK: able to move extremities Psych: Normal affect and normal mood Lab and Diagnostics Result Diagram: 01/03/1740901/03/17409 Microbiology Blood cultures and urine cultures pending X-Rays, CTs and MRIs CT Abd / Pelvis Interpretation performed 12/30/2016 CONCLUSION: No CT evidence of acute intra-abdominal pathology. Diverticulosis without CT evidence of diverticulitis. Mildly enlarged prostate gland. Transmitted to ED by Ace Cordova M.D. at 12/30/2016 - 10:58:39 PM PDT Study type: Abdominal CT no contrast Interpretation / Wet Read by: Interpret - Radiologist Chest Xray Interpretation: Performed 12/30/2016 IMPRESSION: Mild appearance of increased pulmonary vascularity with bibasilar streaky opacities. The latter could be floor representative of more prominent basilar edema versus developing airspace disease such as atelectasis and/or pneumonia. Dictated by: Yadira Arora M.D. on 12/30/2016 at 19:34 View: Portable, 1 view Interpretation / Wet Read by: Interpret - Radiologist 12-lead ECG Sinus rhythm, rate 97. Normal axis "inferior infarct, old. Prolonged QT interval at 507, compared with previous EKG of April 2016 there is new or worsened ischemia or infarction. Significant repolarization change. Assessment & Plan 81-year-old man with history of urinary tract infections of ESBL Escherichia coli, presents with UTI symptoms, found to have urinary tract infection, signs and symptoms of sepsis, refractory to previous outpatient antibiotics, responded to IV fluids and ertapenem. Hospital day 4 #1 Acute severe sepsis, present on admission, resolved on admission Heart rate 121, intermittent tachypnea up to 32 breaths per minute , white count 14.4, identified source urinary tract. Initial lactic acid was 7.4, however on recheck was 1.1 four hours later. Received D5 half-normal saline, changed to normal saline 100 mL per hour. Repeat CBC CMP in the morning Pro-calcitonin to trend Blood cultures 2 pending Treatment for urinary tract infection as below #2 acute altered mental status, not present on admission, resolved CT scan was negative for intracranial hemorrhage Rectal aspirin given for possible thromboembolic stroke Lumbar puncture was unsuccessful to test for possible meningitis Empiric meningitis treatment with meropenem 2 g every 8 hours Continue to monitor and evaluate Continue by mouth aspirin for possible thromboembolic cerebrovascular accident Cleared mental status likely due to clearing of sepsis infection more than stroke or meningitis perform MRI prior to discharge Low-dose Seroquel 6.125 mg available overnight for agitation given recent delirium considered sundowning overnight #3 acute Urinary tract infection, present on admission, treatment initiated, improving History of ESBL Escherichia coli urinary tract infections, similar symptoms and presentation, urinalysis positive for infection. Urine sent for culture and pending Based on previous cultures, sensitivities, and INNA's, ertapenem was chosen as drug of choice. 1g IV every 24 hours for 10-14 days, changed to meropenem 2 g every 8 hours for meningitis coverage Infectious disease consult. Isolation - contact #4 Acute kidney injury, present on admission, resolved Serum creatinine 1.40 on admission, currently 0.95 Normal saline IV 100 mL per hour monitor #5 prolonged QTC, chronicity unknown, present on admission, active QTC was 507 on admission, electrolytes were normal, Most likely due to medications Plaquenil is known to cause QTC prolongation. He is reportedly on this medication for off label use for urinary retention on the advice of Dr. Jackson and his urologist. We will hold Plaquenil and recheck EKG before discharge. #6 EKG changes from previous, present on admission, chronicity unknown. Active Troponin negative, but EKG was read as having worsening ischemia and infarction compared to EKG in April 2016. Asymptomatic at this time, changes may be due to acute stress. We will recheck EKG as above before discharge, referral to cardiology if necessary as an outpatient. Avoid QT prolonging medications #7 anemia, not present on admission, under evaluation - likely a chronic process, which was uncovered due to IV fluid therapy for treatment of sepsis #8 Systemic Lupus erythematosus, chronic, present on admission - holding Plaquenil until patient status improves for oral medication #9 hypertension, chronic, present on admission - holding amlodipine VTE Prophylaxis SCDs GI prophylaxis: Not indicated Pain management: IV Tylenol Disposition: patient will likely remain hospitalized for the next 2 days and may require some rehabilitation depending on physical therapy's evaluation over the coming days as well as social work disability due to have patient treated with IV antibiotics. GI Prophylaxis: Not indicated VTE Prophylaxis: Sub-Q Heparin (Unfractionated), SCDs VTE Mechanical Devices: Intermittant Pneumatic CD Resuscitation Status: CPR: Attempt Resuscitation Attending Statement The patient was seen and examined together with Dr. Blood on 01-03-17 and I agree with the history, exam and plan as outlined in the note above. Juan Blood DO Jan 03, 2017 08:06 Jamil Bolanos MD Jan 04, 2017 13:36
[2017-01-04] VITALS (9 sets, daily range): BP systolic 122–164; BP diastolic 64–79; PULSE 50–77; RESP 16–18; O2SAT 92–97
[2017-01-04] MEDS: Heparin 5,000 Unit/mL Inj SUBQ SCH ×3 (01:02→16:17)
[2017-01-04 04:07] LABS: BASOPHILS % (AUTO) 0.2 % (0-3); MONOCYTES % (AUTO) 9.5 % (4-12); Mean Corpuscular Hemoglobin 28.9 pg (27.0-35.0); NEUTROPHILS % (AUTO) 70.3 % (40-74); Platelet Count 198 bil/L (150-400)
[2017-01-04 06:12] LABS: Vitamin B12 305 pg/mL (211-946)
--- NOTE | 2017-01-04 06:25 | NUR ---
NOC PT has slept well all night. Family at bedside and reports this is the best he has slept. PT oriented. He has been ORA all noc and saturation has been WNL. PT wore SCD's for a few hours, then refused them. Clifton in place. PT was given senna at HS. NO BM this shift. PT received bactrim per order at HS and did not have any GI upset noted. Turned every 2 hours. Skin grossly intact. Denies any pain. WIll CTM.
[2017-01-04] MEDS: Ertapenem Inj 1,000 MG in 0.9% Sodium Chloride 50 ML IV SCH (09:04)
[2017-01-04] MEDS: Trimethoprim-Sulfa 160 mg-800 mg Tablet PO SCH ×2 (09:05→20:33)
[2017-01-04] MEDS: Lactobacillus Rhamnosus 10 Bil Unit Capsule PO SCH ×2 (09:05→20:33)
--- NOTE | 2017-01-04 16:54 | NUR ---
O2/Activity Patient a/o x 3, denies pain, nausea or sob. O@ nc 2 L applied for sleep for sat 90%, RA while awake sat 92-96%. Patient oob with one person assist and walker x 3, in chair for approx 45min to 1 hr, tires quickly. Taking diet fair. VSS, tele SB-SR 40-60's. Nuero's equal bilat. Napping intermittently throughout shift. Clifton patent, clear yellow uop. No BM this shift, Senna given this a.m. without results.
--- NOTE | 2017-01-04 18:00 | PCM.PNMED ---
Subjective Date of Service Jan 04, 2017 Subjective overnight: No acute events overnight Today: Patient continues to improve. Family is happy with the current care being provided. Family wonders when the patient will be discharged. 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 Exam Vital Signs Vital Sign - Last Date Time Temp Pulse Resp B/P Pulse Ox O2 Delivery O2 Flow Rate FiO2 01/04/17 05:29 55 01/04/17 04:03 36.9 18 164/73 92 Room Air 01/03/17 12:00 1.00 Intake and Output 01/03/17 01/03/17 01/04/17 Cumulative From/Thru 15:00 23:00 07:00 12/30/16 18:21 - 01/04/17 05:59 Intake Total 1850 ml 1100 ml 87820 ml Output Total 1000 ml 1800 ml 92911 ml Balance 850 ml -700 ml 1908 ml Intake Oral 700 ml 0 ml 1770 ml IV Total 1150 ml 1100 ml 27536 ml Output Urine Total 1000 ml 1800 ml 43066 ml # Voids 7 # Bowel Movements 0 Exam General: Elderly man sitting in bed, no acute distress Eyes: anisocoria right eye greater than left, extraocular motion intact, anicteric sclera HENT: Normocephalic, atraumatic, moist mucus membranes with no central cyanosis or cobblestoning mucosa Cardiovascular: Regular rate and rhythm, no clicks murmurs rubs, peripheral pulses 2/4 equal bilaterally at radial and dorsalis pedis Pulmonary: Clear to auscultation bilaterally, no W/R/R. Abdominal: normoactive bowel sounds present 4, Soft, patient appears uncomfortable with palpation of abdomen, no hepatosplenomegaly Extremities: No edema appreciated. No tenderness, asymmetry. Neuro: Cranial nerves II through XII grossly intact : no Clifton catheter MSK: able to move extremities, very weak Psych: Normal affect and normal mood Lab and Diagnostics Result Diagram: 01/04/17 0350 01/04/17 0350 Microbiology Blood cultures and urine cultures pending X-Rays, CTs and MRIs CT Abd / Pelvis Interpretation performed 12/30/2016 CONCLUSION: No CT evidence of acute intra-abdominal pathology. Diverticulosis without CT evidence of diverticulitis. Mildly enlarged prostate gland. Transmitted to ED by Ace Cordova M.D. at 12/30/2016 - 10:58:39 PM PDT Study type: Abdominal CT no contrast Interpretation / Wet Read by: Interpret - Radiologist Chest Xray Interpretation: Performed 12/30/2016 IMPRESSION: Mild appearance of increased pulmonary vascularity with bibasilar streaky opacities. The latter could be technical support representative of more prominent basilar edema versus developing airspace disease such as atelectasis and/or pneumonia. Dictated by: Yadira Arora M.D. on 12/30/2016 at 19:34 View: Portable, 1 view Interpretation / Wet Read by: Interpret - Radiologist 12-lead ECG Sinus rhythm, rate 97. Normal axis "inferior infarct, old. Prolonged QT interval at 507, compared with previous EKG of April 2016 there is new or worsened ischemia or infarction. Significant repolarization change. Assessment & Plan 81-year-old man with history of urinary tract infections of ESBL Escherichia coli, presents with UTI symptoms, found to have urinary tract infection, signs and symptoms of sepsis, refractory to previous outpatient antibiotics, responded to IV fluids and ertapenem. Hospital day 5 #1 Acute severe sepsis, present on admission, resolved on admission Heart rate 121, intermittent tachypnea up to 32 breaths per minute , white count 14.4, identified source urinary tract. Initial lactic acid was 7.4, however on recheck was 1.1 four hours later. Received D5 half-normal saline, to discontinue normal saline 100 mL per hour. Repeat CBC CMP in the morning Pro-calcitonin to trend Blood cultures 2 pending Treatment for urinary tract infection as below #2 acute altered mental status, not present on admission, resolved CT scan was negative for intracranial hemorrhage Rectal aspirin given for possible thromboembolic stroke Lumbar puncture was unsuccessful to test for possible meningitis Empiric meningitis treatment with meropenem 2 g every 8 hours Continue to monitor and evaluate Continue by mouth aspirin for possible thromboembolic cerebrovascular accident Cleared mental status likely due to clearing of sepsis infection more than stroke or meningitis perform MRI prior to discharge Low-dose Seroquel 6.125 mg available overnight for agitation given recent delirium considered sundowning overnight #3 acute Urinary tract infection, present on admission, treatment initiated, improving History of ESBL Escherichia coli urinary tract infections, similar symptoms and presentation, urinalysis positive for infection. Urine sent for culture and pending Based on previous cultures, sensitivities, and INNA's, ertapenem was chosen as drug of choice. 1g IV every 24 hours for 10-14 days, changed to meropenem 2 g every 8 hours for meningitis coverage Infectious disease consult. Isolation - contact #4 Acute kidney injury, present on admission, resolved Serum creatinine 1.40 on admission, currently 0.95 discontinue Normal saline IV 100 mL per hour monitor #5 prolonged QTC, chronicity unknown, present on admission, active QTC was 507 on admission, electrolytes were normal, Most likely due to medications Plaquenil is known to cause QTC prolongation. He is reportedly on this medication for off label use for urinary retention on the advice of Dr. Jackson and his urologist. We will hold Plaquenil and recheck EKG before discharge. #6 EKG changes from previous, present on admission, chronicity unknown. Active Troponin negative, but EKG was read as having worsening ischemia and infarction compared to EKG in April 2016. Asymptomatic at this time, changes may be due to acute stress. We will recheck EKG as above before discharge, referral to cardiology if necessary as an outpatient. Avoid QT prolonging medications #7 anemia, not present on admission, under evaluation - likely a chronic process, which was uncovered due to IV fluid therapy for treatment of sepsis #8 Systemic Lupus erythematosus, chronic, present on admission - restart Plaquenil at 200mg BID on 01/05 monitoring for tolerance for evening dose - restart home Plaquenil at 400mg daily at discharge #9 hypertension, chronic, present on admission - restart amlodipine at 5mg can increase back to home dose at discharge VTE Prophylaxis SCDs GI prophylaxis: Not indicated Pain management: IV Tylenol Disposition: patient will likely remain hospitalized for the next 2 days and may require some rehabilitation depending on physical therapy's evaluation over the coming days as well as social work disability due to have patient treated with IV antibiotics. GI Prophylaxis: Not indicated VTE Prophylaxis: Sub-Q Heparin (Unfractionated), SCDs VTE Mechanical Devices: Intermittant Pneumatic CD Resuscitation Status: CPR: Attempt Resuscitation Attending Statement The patient was seen and examined together with Dr. Blood on 01-04-17 and I agree with the history, exam and plan as outlined in the note above. Juan Blood DO Jan 04, 2017 07:29 Jamil Bolanos MD Jan 05, 2017 10:51
[2017-01-05] VITALS (8 sets, daily range): BP systolic 121–144; BP diastolic 74–84; PULSE 47–55; RESP 16–20; O2SAT 94–97
[2017-01-05] MEDS: Heparin 5,000 Unit/mL Inj SUBQ SCH ×3 (00:34→17:44)
[2017-01-05 03:45] LABS: BASOPHILS % (AUTO) 0.5 % (0-3); EOSINOPHILS % (AUTO) 7.2 % (0-5); MONOCYTES % (AUTO) 9.8 % (4-12); Mean Corpuscular Hemoglobin 28.3 pg (27.0-35.0); Mean Corpuscular Volume 85.4 fL (81-100); NEUTROPHILS % (AUTO) 68.9 % (40-74); Platelet Count 193 bil/L (150-400)
--- NOTE | 2017-01-05 06:57 | NUR ---
Activity/GI/Tele Pt up to bed from [facility] w/ 2 person assist at start of shift. Pt able to help w/ turns for assessment, general weakness noted. Pt woke around 4am, alert and slightly more conversive. Pt oriented x3 all night. Pt given Senna and prune juice for constipation, unable to have BM this shift. Tele SBrady 40s-50s, denies pain, appeared to sleep comfortably between care interventions.
[2017-01-05] MEDS: Ertapenem Inj 1,000 MG in 0.9% Sodium Chloride 50 ML IV SCH (07:56)
[2017-01-05] MEDS: Trimethoprim-Sulfa 160 mg-800 mg Tablet PO SCH ×2 (09:09→20:56)
[2017-01-05] MEDS: Lactobacillus Rhamnosus 10 Bil Unit Capsule PO SCH ×2 (09:09→21:00)
--- NOTE | 2017-01-05 09:10 | NUR ---
MGEHANN MEGHANN signed
--- NOTE | 2017-01-05 09:11 | PCM.PNMED ---
Subjective Date of Service Jan 05, 2017 Subjective No major problems overnight. Still remains very weak but is working with PT, one plus assist to stand. Eating very well however which obviously is very good. Nurse tells me there has been no BM since admit. Exam Vital Signs Vital Sign - Last Date Time Temp Pulse Resp B/P Pulse Ox O2 Delivery O2 Flow Rate FiO2 01/05/17 07:49 36.9 52 18 144/84 96 Nasal Cannula 2.00 Intake and Output 01/04/17 01/04/17 01/05/17 Cumulative From/Thru 15:00 23:00 07:00 12/30/16 18:21 - 01/05/17 04:52 Intake Total 1393 ml 60019 ml Output Total 1550 ml 1650 ml 24948 ml Balance -157 ml -1650 ml 101 ml Intake Oral 250 ml 2020 ml IV Total 1143 ml 75824 ml Output Urine Total 1550 ml 1650 ml 32843 ml # Voids 7 # Bowel Movements 0 0 Exam eyes; kristina, eom intact enmt; well hydrated, no lessions, cv; no JVD, S1S2 present with a soft systolic murmur resp; few scattered crackles but otherwise clear gi; abdomen soft and benign with no significant renderness skin; clear no rashes, dry neuro; cranial nereves 2-12 intact, no gross motor or sensory defects Lab and Diagnostics Result Diagram: 01/05/17 0320 01/05/17 0320 Microbiology Blood cultures and urine cultures pending X-Rays, CTs and MRIs CT Abd / Pelvis Interpretation performed 12/30/2016 CONCLUSION: No CT evidence of acute intra-abdominal pathology. Diverticulosis without CT evidence of diverticulitis. Mildly enlarged prostate gland. Transmitted to ED by Ace Cordova M.D. at 12/30/2016 - 10:58:39 PM PDT Study type: Abdominal CT no contrast Interpretation / Wet Read by: Interpret - Radiologist Chest Xray Interpretation: Performed 12/30/2016 IMPRESSION: Mild appearance of increased pulmonary vascularity with bibasilar streaky opacities. The latter could be truck sales representative of more prominent basilar edema versus developing airspace disease such as atelectasis and/or pneumonia. Dictated by: Yadira Arora M.D. on 12/30/2016 at 19:34 View: Portable, 1 view Interpretation / Wet Read by: Interpret - Radiologist 12-lead ECG Sinus rhythm, rate 97. Normal axis "inferior infarct, old. Prolonged QT interval at 507, compared with previous EKG of April 2016 there is new or worsened ischemia or infarction. Significant repolarization change. Assessment & Plan 81-year-old man with history of urinary tract infections of ESBL Escherichia coli, presents with UTI symptoms, found to have urinary tract infection, signs and symptoms of sepsis, refractory to previous outpatient antibiotics, responded to IV fluids and ertapenem. Hospital day 5 #1 Acute severe sepsis, present on admission, resolved -on admission Heart rate 121,tachypnea up to 32 breaths per minute, white count 14.4, source urinary tract, with encephalopathy secondary to septic process -Initial lactic acid was 7.4, however on recheck was 1.1 four hours later. -Blood cultures 2 pending, negative to date -Treatment for urinary tract infection as below #2 acute Urinary tract infection, present on admission, improving -ESBL Escherichia coli urinary tract infections, urine culture -day 6 of effective antibiotics IV (ertapenem .meropenem.ertapenem) -day 4of oral Bactrim -discuss with ID platform consultant tomorrow about duration and continue antibiotic tomorrow AM -CT KUB with normal appearing kidneys -isolation #3 acute encephalopathy, not present on admission, resolved -secondary to septic process -CT scan was negative for intracranial hemorrhage -Rectal aspirin given for possible stroke -Lumbar puncture was unsuccessful to test for possible meningitis #4 acute delirium, not present on admission, improving -secondary to infection, medications, illness, being in hospital, etc -improving, continue with low dose Seroquel for now (6.25 q pm) #4 Acute kidney injury, present on admission, resolved -Serum creatinine 1.40 on admission, currently 0.95 -discontinue Normal saline IV 100 mL per hour -BMP in AM #5 prolonged QTC, chronicity unknown, present on admission, active -QTC was 507 on admission, electrolytes were normal, -monitor with tele #6 EKG changes from previous, present on admission, chronicity unknown. Active -EKG was read as having worsening ischemia and infarction compared to EKG in April 2016. -Asymptomatic at this time, changes may be due to acute stress. -repeat ekg tomorrow AM #7 anemia, not present on admission, stable -likely a chronic process not noted on admit due to dehydration -outpatient follow up #8 Systemic Lupus erythematosus, chronic, present on admission -restart Plaquenil at 200mg BID on 01/05 monitoring for tolerance for evening dose -restart home Plaquenil at 400mg daily at discharge #9 hypertension, chronic, present on admission -restart amlodipine at 5mg can increase back to home dose at discharge #10 acute urinary retention, present on admission, active -remove Clifton today -if unable to void replace Clifton and start Flomax #10 acute constipation, not present on admission, active -no BM since admission -add miralax daily and prn Dulcolax -continue senna #11 Disposition -patients family hoping to take4 patient home, still being assessed for SNIF by PT VTE Prophylaxis SCDs GI prophylaxis: Not indicated Pain management: IV Tylenol Disposition: patient will likely remain hospitalized for the next 2 days and may require some rehabilitation depending on physical therapy's evaluation over the coming days as well as social work disability due to have patient treated with IV antibiotics. GI Prophylaxis: Not indicated VTE Prophylaxis: Sub-Q Heparin (Unfractionated), SCDs VTE Mechanical Devices: Intermittant Pneumatic CD Resuscitation Status: CPR: Attempt Resuscitation Jamil Bolanos MD Jan 05, 2017 09:11
[2017-01-05] MEDS: Hydroxychloroqine 200 mg Tablet PO SCH ×2 (09:18→20:59)
[2017-01-05] MEDS: Polyethylene Glycol (PEG) 17 Gm Powder PO SCH (17:44)
--- NOTE | 2017-01-05 18:36 | NUR ---
HNV/Constipation Patient a/o x 3, denies pain, nausea or sob. Patient oob amb in room with walker and one person assist, approx 10 ft at a time, patient cont to be unsteady on feet. Patient up in chair for meals. Clifton removed at 0900, HNV after 8 hrs, bladder scan done showing 672 ml, paged and new orders recieved. 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 Will cont poc.
[2017-01-06] VITALS (7 sets, daily range): BP systolic 121–153; BP diastolic 66–77; PULSE 53–92; RESP 14–18; O2SAT 93–94
[2017-01-06] MEDS: Heparin 5,000 Unit/mL Inj SUBQ SCH ×3 (00:24→17:24)
[2017-01-06 03:52] LABS: BASOPHILS % (AUTO) 0.4 % (0-3); EOSINOPHILS % (AUTO) 6.5 % (0-5); MONOCYTES % (AUTO) 8.3 % (4-12); Mean Corpuscular Hemoglobin 28.5 pg (27.0-35.0); NEUTROPHILS % (AUTO) 71.9 % (40-74); Platelet Count 208 bil/L (150-400)
--- NOTE | 2017-01-06 08:04 | NUR ---
GI//Activity Pt given senna at HS, able to have one small BM this morning. Pt had over 600mL in bladder scan per day shift. I&O catheter inserted and drained over 900mL at start of table games shift manager. Pt only able to void 50-100mL in urinal. Next bladder scan had over 800mL residual. paged and order bledsoe to stay instead of I&O cath. Pt up to [facility] w/ 1-2 person assist and FWW using gai belt. Gait unsteady. Pt needs ques. Pt compliant w/ care, family in room throughout shift.
[2017-01-06] MEDS: Ertapenem Inj 1,000 MG in 0.9% Sodium Chloride 50 ML IV SCH (09:28)
[2017-01-06] MEDS: Hydroxychloroqine 200 mg Tablet PO SCH ×2 (09:29→20:01)
[2017-01-06] MEDS: Trimethoprim-Sulfa 160 mg-800 mg Tablet PO SCH ×2 (09:29→20:01)
[2017-01-06] MEDS: Polyethylene Glycol (PEG) 17 Gm Powder PO SCH (09:30)
[2017-01-06] MEDS: Lactobacillus Rhamnosus 10 Bil Unit Capsule PO SCH ×2 (09:31→20:01)
--- NOTE | 2017-01-06 10:14 | PROG NOTE ---
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 INTERVAL HISTORY: Over the weekend, the patient has tolerated both his ertapenem as well as his oral Bactrim. Recall that we had started oral Bactrim to see if the patient might tolerate it and give him an oral option to continued IV therapy for this multi-drug resistant infection. Over the weekend, he has done fine and denies any fevers, chills, or sweats. His mental status has remained normal and he has been able to ambulate, though he has required a considerable amount of help in doing so, as he has lost considerable ground due to this recent severe infection. He has not developed any skin rash, nausea, vomiting or other complications due to the Bactrim therapy. PHYSICAL EXAMINATION: Reveals an afebrile gentleman, who is sitting up in a chair and participating in the conversation. He is quite awake and alert. Temperature 36.2, pulse 84, respiratory rate 18, blood pressure 125/66, saturating well on room air. Examination of the skin reveals no rash of any kind. As noted, his mental status is clear today. Oral cavity without oral ulcerations. Lungs relatively clear. Sitting up in a chair. Cardiac tones without new murmur. Abdomen benign. LABORATORIES: Include a white count of 7800. He has 6% eosinophils. Importantly, his creatinine is 1.07, which has remained quite stable following the initiation of Bactrim therapy. Likewise, his potassium is normal at 4.0 after four days of Bactrim. His albumin is 3. Procalcitonin has declined to 0.12. Micro included the ESBL E. coli found in the urine which was basically only sensitive to carbapenem, aminoglycosides and Bactrim. IMAGING: No new imaging is available. IMPRESSION: This patient has done well on ertapenem, and we have added Bactrim to make certain that he is able to tolerate it before discharge plans. At this point, I think we can reasonably discontinue the ertapenem after today's dose and send the patient home on Bactrim. It is overall safer, of course, to use oral antibiotics when we see no evidence of renal toxicity, hyperkalemia, nausea, vomiting or skin rash with the Bactrim therapy. RECOMMENDATIONS: 1. Discontinue ertapenem after today's dose. 2. The patient can go home with Bactrim and I would give one tablet twice a day for one more week to finish a total of two weeks of therapy for acute infection, and then follow with one tablets Double-Strength Bactrim once a day to be continued probably for the next several months. 3. The patient should have a potassium and creatinine checked on or about Friday, the . Please forward these results to me. 4. Assuming the patient is doing well with respect to his potassium and creatinine on the , I will see him in my office on January 15 to make sure he is doing well with the transition to chronic suppression and I will plan on repeating his labs when I see him again on the . 5. This choice regarding prophylactic antibiotics was discussed in detail with the patient's spouse as well as one of his children, and the patient himself, and they all accept and agreed to the chronic chemoprophylaxis for UTI. They are aware that he may develop toxicity through the Bactrim as time goes on, or multi-drug resistant organisms.
--- NOTE | 2017-01-06 14:12 | NUR ---
Social Work Note: Continued Discharge Planning Data& Assessment: Per MD pt is getting closer to being medically ready for discharge. SW met with pt, pt and pt daughter Gardenia at bedside to discuss discharge planning. Per PT, pt requires SNF at time of discharge as pt has decreased strength, mobility and is a fall risk. Pt has been accepted at [facility] per previous [employer] notes. Pt family explained they are motivated to bring pt home at time of discharge with Home Health services, private in home caregiving through [facility] and purchasing DME for the home themselves. Pt daughter has already contacted [facility] to establish services and meeting with family today. Pt family explained they understand PT's recommendations but that they believe pt will decompensate if he goes to SNF rather than going home. Pt daughter reports that she lives near pt and pt and will be available to help in addition to Home Health and Private caregiving. updated and aware of pt wishes. Pt family PROVIDED WITH HOME HEALTH/SNF LIST to review for preferences. Pt family preference is for [facility] as pt daughter had already made inquiries about the company in the community. Referral made to Col[facility] with [facility]. Pt daughter also provided with DME company list for preferences and quotes as well. Pt daughter plans to acquire BSC and walker in the community privately. Pt and pt family deny any other needs at this time. SW to continue to follow if any needs arise. Plan: Anticipated discharge home via POV when medically ready with [facility] RN, PT, OT, ROLL SHOP SUPERVISOR, as well as [facility] private in home caregiving to follow. Pt daughter plans to acquire BSC and walker in the community privately. Pt and pt family deny any other needs at this time. SW to continue to follow if any needs arise. Joann Ambrocio, [employer]
--- NOTE | 2017-01-06 14:49 | NUR ---
NUTRITION FOLLOW UP: ASSESS: 81 YO M admitted for UTI and sepsis. ID is following. Diet advanced to soft, pt with poor/fair PO intake PMHX: Lupus, pyelonephritis, HTN, pancreatitis LABS: Reviewed. Glu 112, Ca 8.4 MEDS: Reviewed. Miralax, Florastor, Culturelle, Senna. GI: 1 BM (01/06) SKIN: [place] 13 CURRENT WT: 69.5 kg, BMI 22.0 kg/m2, Admit wt: 72 kg DIET: Soft + supplements. PO 25% x1 meal ESTIMATED NEEDS: Calories: 0378-9182 kcal/day (25-30 kcal/kg BW) Protein: 85-95 g/day (1.0-1.2 g/kg BW) NUTRITION DIAGNOSIS: 1.) Chew/swallow difficulty related to weakness as evidence by need for dysphagia mechanical diet with NT liquids.---IMPROVING. NUTRITION INTERVENTION: 1.) Continue diet per ST 2.) Continue supplements. MONITOR/EVALUATE: PO intake, ST, wt, GI, labs, POC, nutrition status. Follow per moderate nutrition risk guidelines
--- NOTE | 2017-01-06 18:45 | NUR ---
Bowel movement Pt. had 5 or 6 very small bowel movements/smears today. Given Mirilax this a.m. to help. Pt. has poor appetite and still feels constipated. Will continue to monitor and give stool softeners.
--- NOTE | 2017-01-06 20:23 | PCM.PNMED ---
Subjective Date of Service Jan 06, 2017 Subjective overnight: No acute events otherwise noted Today: Patient states he still feels significantly improved. He denies any fever or chills diarrhea. He continues to be weak but he is ready to go home. He understands the plan is to continue Bactrim daily and he will need to follow- up with labs for his kidney function. Exam Vital Signs Vital Sign - Last Date Time Temp Pulse Resp B/P Pulse Ox O2 Delivery O2 Flow Rate FiO2 01/05/17 23:22 36.0 50 16 136/76 94 Room Air 01/05/17 16:23 2.00 Intake and Output 01/05/17 01/05/17 01/06/17 Cumulative From/Thru 14:59 22:59 06:59 12/30/16 18:21 - 01/06/17 06:28 Intake Total 1323 ml 1445 ml 100 ml 88220 ml Output Total 600 ml 1910 ml 33946 ml Balance 1323 ml 845 ml -1810 ml 459 ml Intake Oral 440 ml 100 ml 2560 ml IV Total 1323 ml 1005 ml 12960 ml Output Urine Total 600 ml 1910 ml 16989 ml # Voids 2 9 # Bowel Movements 0 1 1 Exam General: Elderly man sitting in bed, no acute distress Eyes: anisocoria right eye greater than left, extraocular motion intact, anicteric sclera HENT: Normocephalic, atraumatic, moist mucus membranes with no central cyanosis or cobblestoning mucosa Cardiovascular: Regular rate and rhythm, no clicks murmurs rubs, peripheral pulses 2/4 equal bilaterally at radial and dorsalis pedis Pulmonary: Clear to auscultation bilaterally, no W/R/R. Abdominal: normoactive bowel sounds present 4, Soft, patient appears uncomfortable with palpation of abdomen, no hepatosplenomegaly Extremities: No edema appreciated. No tenderness, asymmetry. Neuro: Cranial nerves II through XII grossly intact : no Clifton catheter MSK: able to move extremities, very weak Psych: Normal affect and normal mood Lab and Diagnostics Result Diagram: 01/06/17 0320 01/06/17 0320 Microbiology Blood cultures and urine cultures pending X-Rays, CTs and MRIs CT Abd / Pelvis Interpretation performed 12/30/2016 CONCLUSION: No CT evidence of acute intra-abdominal pathology. Diverticulosis without CT evidence of diverticulitis. Mildly enlarged prostate gland. Transmitted to ED by Ace Cordova M.D. at 12/30/2016 - 10:58:39 PM PDT Study type: Abdominal CT no contrast Interpretation / Wet Read by: Interpret - Radiologist Chest Xray Interpretation: Performed 12/30/2016 IMPRESSION: Mild appearance of increased pulmonary vascularity with bibasilar streaky opacities. The latter could be commercial pest control representative of more prominent basilar edema versus developing airspace disease such as atelectasis and/or pneumonia. Dictated by: Yadira Arora M.D. on 12/30/2016 at 19:34 View: Portable, 1 view Interpretation / Wet Read by: Interpret - Radiologist 12-lead ECG Sinus rhythm, rate 97. Normal axis "inferior infarct, old. Prolonged QT interval at 507, compared with previous EKG of April 2016 there is new or worsened ischemia or infarction. Significant repolarization change. Assessment & Plan 81-year-old man with history of urinary tract infections of ESBL Escherichia coli, presents with UTI symptoms, found to have urinary tract infection, signs and symptoms of sepsis, refractory to previous outpatient antibiotics, responded to IV fluids and ertapenem. Hospital day 7 #1 Acute severe sepsis, present on admission, resolved -on admission Heart rate 121,tachypnea up to 32 breaths per minute, white count 14.4, source urinary tract, with encephalopathy secondary to septic process -Initial lactic acid was 7.4, however on recheck was 1.1 four hours later. -Blood cultures 2 pending, negative to date -Treatment for urinary tract infection as below #2 acute Urinary tract infection, present on admission, improving -ESBL Escherichia coli urinary tract infections, urine culture -day 7 of effective antibiotics IV (ertapenem .meropenem.ertapenem) -day 5 of oral Bactrim -Infectious disease plan is to discontinue ertapenem after today's infusion and continue Bactrim DS twice a day until January 13 with follow-up for creatinine and potassium on January 08 after January 13 patient will be continued on Bactrim once a day for indefinite -CT KUB with normal appearing kidneys -isolation #3 acute encephalopathy, not present on admission, resolved -secondary to septic process -CT scan was negative for intracranial hemorrhage -Rectal aspirin given for possible stroke -Lumbar puncture was unsuccessful to test for possible meningitis #4 acute delirium, not present on admission, improving -secondary to infection, medications, illness, being in hospital, etc -improving, continue with low dose Seroquel for now (6.25 q pm) #4 Acute kidney injury, present on admission, resolved -Serum creatinine 1.40 on admission, currently 0.95 -discontinue Normal saline IV 100 mL per hour -BMP in AM #5 prolonged QTC, chronicity unknown, present on admission, active -QTC was 507 on admission, electrolytes were normal, -monitor with tele #6 EKG changes from previous, present on admission, chronicity unknown. Active -EKG was read as having worsening ischemia and infarction compared to EKG in April 2016. -Asymptomatic at this time, changes may be due to acute stress. -repeat ekg tomorrow AM #7 anemia, not present on admission, stable -likely a chronic process not noted on admit due to dehydration -outpatient follow up #8 Systemic Lupus erythematosus, chronic, present on admission -restart Plaquenil at 200mg BID on 01/05 monitoring for tolerance for evening dose -restart home Plaquenil at 400mg daily at discharge #9 hypertension, chronic, present on admission -restart amlodipine at 5mg can increase back to home dose at discharge #10 acute urinary retention, present on admission, active -remove Clifton today -Continue Clifton as an outpatient and start Flomax and have patient follow up with primary care physician when labs drawn on the #10 acute constipation, not present on admission, active -no BM since admission -add miralax daily and prn Dulcolax -continue senna #11 Disposition -patients family hoping to take4 patient home, still being assessed for SNIF by PT VTE Prophylaxis SCDs GI prophylaxis: Not indicated Pain management: IV Tylenol Disposition: patient will likely be discharged home with home health nursing and 24-hour care provided by the family plus rehabilitation depending on physical therapy's evaluation. GI Prophylaxis: Not indicated VTE Prophylaxis: Sub-Q Heparin (Unfractionated), SCDs VTE Mechanical Devices: Intermittant Pneumatic CD Resuscitation Status: CPR: Attempt Resuscitation Attending Statement The patient was seen and examined together with Dr. Blood on 01/06/2017 and I agree with the history, exam and plan as outlined in the note above. . Juan Blood DO Jan 06, 2017 07:45 Albert Richards MD Jan 10, 2017 07:31
[2017-01-07] MEDS: Heparin 5,000 Unit/mL Inj SUBQ SCH ×2 (00:41→08:49)
[2017-01-07 02:35] VITALS: BP 121/66; PULSE 54; RESP 16; O2SAT 92
[2017-01-07 03:47] LABS: BASOPHILS % (AUTO) 0.3 % (0-3); EOSINOPHILS % (AUTO) 4.1 % (0-5); MONOCYTES % (AUTO) 7.7 % (4-12); Mean Corpuscular Hemoglobin 28.6 pg (27.0-35.0); Mean Corpuscular Volume 84.8 fL (81-100); NEUTROPHILS % (AUTO) 78.5 % (40-74); Platelet Count 187 bil/L (150-400)
[2017-01-07 07:43] VITALS: BP 116/66; PULSE 75; RESP 20; O2SAT 98
[2017-01-07 07:50] VITALS: PULSE 75
[2017-01-07] MEDS: Hydroxychloroqine 200 mg Tablet PO SCH (08:42)
[2017-01-07] MEDS: Lactobacillus Rhamnosus 10 Bil Unit Capsule PO SCH (08:42)
[2017-01-07] MEDS: Trimethoprim-Sulfa 160 mg-800 mg Tablet PO SCH (08:42)
[2017-01-07] MEDS: Polyethylene Glycol (PEG) 17 Gm Powder PO SCH (08:46)
[2017-01-07] MEDS: Ertapenem Inj 1,000 MG in 0.9% Sodium Chloride 50 ML IV SCH (08:46)
--- NOTE | 2017-01-07 10:25 | NUR ---
Social Work Note: Discharge Data& Assessment: Per pt is medically ready for discharge. Mejia Ho is a 81 year old male admitted on 12/30/2016 for UTI and sepsis. Per pt is medically improved and completed his IV antibiotic course. GRACE spoke with pt daughter Gardenia who explained that she and her mother (pt ) have decided that going to SNF for a short stay and then going home with home health would be a safer option. Per PT, pt does require SNF at time of discharge. GRACE confirmed that preference is still for [facility] and pt daughter had toured the facility this morning. GRACE notified Collin from [facility] that pt will no longer require their services at this time. Pt and pt family denies any other needs. Pt to transport to [facility] via wheelchair van arranged by the facility. No other discharge needs identified. MD notified and agreeable to plan. Plan: Per pt is medically ready to discharge to [facility] SNF via wheelchair van arranged by the facility. Pt and pt family deny any other needs. No other discharge needs identified. All updated and agreeable to plan. SOHEILA Hernandez Addendum: 01/07/17 at 1047 by CHARLENE DAI SS GRACE spoke with Jose, high school admissions representative from [facility], who confirmed they have a bed for pt today and will be able to pick pt up via wheelchair van at 2:30p.mSOHEILA Correia
--- NOTE | 2017-01-07 11:16 | NUR ---
Spoke with Jose at [facility] and they would like to mushroom picker patient at 1330 versus 1430. 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
[2017-01-07] MEDS ORDERED: TAMS0.4C98 PO (11:27)
[2017-01-07] MEDS ORDERED: SULF1TAB35 PO ×2 (11:27)
--- NOTE | 2017-01-07 11:43 | PCM.DIMED ---
Juan Blood DO 01/07/17 1143: Discharge Instructions Date of Service Jan 07, 2017 Dates of Hospitalization Dec 30, 2016 at 21:14 Discharge Diagnosis Discharge Diagnosis #1 Acute severe sepsis #2 acute Urinary tract infection -ESBL Escherichia coli urinary tract infections, urine culture #3 acute encephalopathy #4 acute delirium #4 Acute kidney injury #5 prolonged QTC #6 EKG changes from previous #7 anemia #8 Systemic Lupus erythematosus #9 hypertension #10 acute urinary retention Medication Instructions Please continue to take her regularly prescribed medications as directed. These include your blood pressure medication amlodipine 7.5 mg daily, your systemic lupus erythematous hydroxychloroquine 400 mg daily. You also have prescriptions that were likely started recently for Bactrim. He will be given a new prescription for trimethoprim sulfamethoxazole double strength to be taken twice daily for the next week. He will be on trimethoprim sulfamethoxazole double strength indefinitely and will be given a prescription for once daily dosing, if he would like he can use his previous prescription for trimethoprim sulfamethoxazole double strength for his once daily dosing in the future so this prescription does not go to waste. You also have probiotics on your prescription medication list. Please continue to take a daily probiotic while you were on antibiotics. We have also started tamsulosin 0.4 mg daily for urinary retention. Please continue to make take this medication and follow up with your primary care provider. The rehabilitation facility may try and remove this Clifton catheter in the next 3-5 days and see if you can urinate on your own. Test Results Microbiology [facility] CULT URINE Final 01/01/17-0742 Organism 1 E. COLI ESBL SOLVENT RECOVERER U COLONY COUNT/QUANTITY >100,000 CFU/ml PLEASE NOTE This isolate has developed multiple resistance mechanisms to various classes of antibiotics. Consider Contact isolation precautions for in-patients. Contact Pharmacy. Consider Infectious Disease Specialist Consultation. RESULTS CALLED TO JUNE Linton AND SEGUN Rich (INFECTION CONTROL) 01/01/17 AT 0740. 1. E. COLI ESBL SOLVENT RECOVERER M.I.C Interp --------- ------ * AMOXICILLIN/CLAVULATE 16 intermediate * AMPICILLIN >=32 R resistant * CEFAZOLIN >=64 R resistant * CEFEPIME R resistant * CEFTRIAXONE >=64 R resistant * CEFUROXIME SODIUM >=64 R resistant * CIPROFLOXACIN >=4 R resistant * ERTAPENEM <=0.5 S sensitive * GENTAMICIN <=1 S sensitive * IMIPENEM <=1 S sensitive * LEVOFLOXACIN >=8 R resistant * NITROFURANTOIN <=16 S sensitive * TETRACYCLINE >=16 R resistant * TOBRAMYCIN >=16 R resistant * TRIMETHOPRIM/SULFAMETHOXAZOLE <=20 S sensitive Diet Heart Healthy Activity Other (Prestige physical therapy to determine) Call your provider Fever or Chills, Shortness of breath, Bleeding, Chest pain, Vomitting, Excessive diarrhea, Weakness (unilateral), Other (urinary retention) Patient Instructions He will need to take Bactrim double strength once a day for the indefinite future. Included is the microbiology from this hospitalization so that the patient may have this information for his records to provide to any doctor for which he will been seen in the future. Follow-up plan He will require follow-up with either a provider at the rehabilitation facility likely Dr. Brendan Tom in 3 days so either on January 10 of January 11 with labs drawn for kidney function including potassium and creatinine. Please remove the Clifton catheter several hours prior to his primary care physician appointment so that he may be evaluated for urinary retention. He should follow-up with Dr. Jackson of infectious disease in 5 weeks to confirm antibiotics dosing and schedule a general wellness checks. Follow-up Provider: Brendan Tom MD Follow-up with PCP in: 1 week (on 01/10/2017 or 01/11/2017) Provider: Tam Jackson MD Follow-up in: 5 weeks Mid-level Provider (F9): Misael Ludwig MD Follow-up with Mid-level in: 3 weeks Additional Information Patient should be seen by his PCP at the [facility] Dr. Pedraza within the next 2-3 weeks for general wellness and medication follow up. Albert Richards MD 01/10/17 0732: Discharge Instructions Attending's Statement The patient was seen and examined together with Dr. Blood on 01/07/2017 and I agree with the history, exam and plan as outlined in the note above. . Juan Blood DO Jan 07, 2017 11:43 Albert Richards MD Jan 10, 2017 07:32
--- NOTE | 2017-01-07 13:35 | NUR ---
Discharge note Patient a/o x 3, denies pain, nausea or sob. Patient oob with walker and one person assist, jason cooley. Clifton patent gabby uop. Had small BM x 2. IV SL and tele removed intact. Patient transferred to [facility] via facility transport. accompanied patient with all his belongings. Discharge packet sent with transporter.
--- NOTE | 2017-01-07 14:02 | PCM.PNMED ---
Subjective Date of Service Jan 07, 2017 Subjective Overnight: No acute events Today: Family asked me to discuss with the patient the possibility of going for rehabilitation instead of home for 24 hour care. This was discussed with the patient with reassurance as this was not a long-term placement option. The patient agreed after attempting to stand that he was simply too weak, and would likely require too much assistance at home. He understands the plan is to go to [facility] worry will be followed by Dr. Tom with blood labs drawn for kidney function due to the Bactrim. He understands that he will be on Bactrim indefinitely. Exam Vital Signs Vital Sign - Last Date Time Temp Pulse Resp B/P Pulse Ox O2 Delivery O2 Flow Rate FiO2 01/07/17 07:43 36.4 75 20 116/66 98 Room Air 01/05/17 16:23 2.00 Intake and Output 01/06/17 01/06/17 01/07/17 Cumulative From/Thru 15:00 23:00 07:00 12/30/16 18:21 - 01/07/17 05:14 Intake Total 286 ml 1030 ml 400 ml 69599 ml Output Total 400 ml 300 ml 84555 ml Balance 286 ml 630 ml 100 ml 1475 ml Intake Oral 960 ml 400 ml 3920 ml IV Total 286 ml 70 ml 62238 ml Output Urine Total 400 ml 300 ml 04718 ml # Voids 9 # Bowel Movements 3 1 5 Exam General: Elderly man sitting in bed, no acute distress Eyes: anisocoria right eye greater than left, extraocular motion intact, anicteric sclera HENT: Normocephalic, atraumatic, moist mucus membranes with no central cyanosis or cobblestoning mucosa Cardiovascular: Regular rate and rhythm, no clicks murmurs rubs, peripheral pulses 2/4 equal bilaterally at radial and dorsalis pedis Pulmonary: Clear to auscultation bilaterally, no W/R/R. Abdominal: normoactive bowel sounds present 4, Soft, patient appears uncomfortable with palpation of abdomen, no hepatosplenomegaly Extremities: No edema appreciated. No tenderness, asymmetry. Neuro: Cranial nerves II through XII grossly intact : Clifton catheter in place MSK: able to move extremities, very weak Psych: Normal affect and normal mood Lab and Diagnostics Result Diagram: 3/21/17 0310 3/21/17 0310 Microbiology Microbiology [facility] CULT URINE Final 01/01/17-0742 Organism 1 E. COLI ESBL RETAIL ASSOCIATE MANAGER BILINGUAL U COLONY COUNT/QUANTITY >100,000 CFU/ml PLEASE NOTE This isolate has developed multiple resistance mechanisms to various classes of antibiotics. Consider Contact isolation precautions for in-patients. Contact Pharmacy. Consider Infectious Disease Specialist Consultation. RESULTS CALLED TO JUNE Linton AND SEGUN Rich (INFECTION CONTROL) 01/01/17 AT 0740. 1. E. COLI ESBL RETAIL ASSOCIATE MANAGER BILINGUAL M.I.C Interp --------- ------ * AMOXICILLIN/CLAVULATE 16 I * AMPICILLIN >=32 R * CEFAZOLIN >=64 R * CEFEPIME R * CEFTRIAXONE >=64 R * CEFUROXIME SODIUM >=64 R * CIPROFLOXACIN >=4 R * ERTAPENEM <=0.5 S * GENTAMICIN <=1 S * IMIPENEM <=1 S * LEVOFLOXACIN >=8 R * NITROFURANTOIN <=16 S * TETRACYCLINE >=16 R * TOBRAMYCIN >=16 R * TRIMETHOPRIM/SULFAMETHOXAZOLE <=20 S X-Rays, CTs and MRIs CT Abd / Pelvis Interpretation performed 12/30/2016 CONCLUSION: No CT evidence of acute intra-abdominal pathology. Diverticulosis without CT evidence of diverticulitis. Mildly enlarged prostate gland. Transmitted to ED by Ace Cordova M.D. at 12/30/2016 - 10:58:39 PM PDT Study type: Abdominal CT no contrast Interpretation / Wet Read by: Interpret - Radiologist Chest Xray Interpretation: Performed 12/30/2016 IMPRESSION: Mild appearance of increased pulmonary vascularity with bibasilar streaky opacities. The latter could be inbound call center representative of more prominent basilar edema versus developing airspace disease such as atelectasis and/or pneumonia. Dictated by: Yadira Arora M.D. on 12/30/2016 at 19:34 View: Portable, 1 view Interpretation / Wet Read by: Interpret - Radiologist 12-lead ECG Sinus rhythm, rate 97. Normal axis "inferior infarct, old. Prolonged QT interval at 507, compared with previous EKG of April 2016 there is new or worsened ischemia or infarction. Significant repolarization change. Assessment & Plan 81-year-old man with history of urinary tract infections of ESBL Escherichia coli, presents with UTI symptoms, found to have urinary tract infection, signs and symptoms of sepsis, refractory to previous outpatient antibiotics, responded to IV fluids and ertapenem. Hospital day 7 #1 Acute severe sepsis, present on admission, resolved -on admission Heart rate 121,tachypnea up to 32 breaths per minute, white count 14.4, source urinary tract, with encephalopathy secondary to septic process -Initial lactic acid was 7.4, however on recheck was 1.1 four hours later. -Blood cultures 2 pending, negative to date -Treatment for urinary tract infection as below #2 acute Urinary tract infection, present on admission, improving -ESBL Escherichia coli urinary tract infections, urine culture -day 7 of effective antibiotics IV (ertapenem .meropenem.ertapenem) -day 5 of oral Bactrim -Infectious disease plan is to discontinue ertapenem after today's infusion and continue Bactrim DS twice a day until January 13 with follow-up for creatinine and potassium on January 08 after January 13 patient will be continued on Bactrim once a day for indefinite -CT KUB with normal appearing kidneys -isolation #3 acute encephalopathy, not present on admission, resolved -secondary to septic process -CT scan was negative for intracranial hemorrhage -Rectal aspirin given for possible stroke -Lumbar puncture was unsuccessful to test for possible meningitis #4 acute delirium, not present on admission, improving -secondary to infection, medications, illness, being in hospital, etc -improving, discontinue low dose Seroquel at discharge #4 Acute kidney injury, present on admission, resolved -Serum creatinine 1.40 on admission, currently 0.95 -discontinue Normal saline IV 100 mL per hour #5 prolonged QTC, chronicity unknown, present on admission, active -QTC was 507 on admission, electrolytes were normal, #6 EKG changes from previous, present on admission, chronicity unknown. Active -EKG was read as having worsening ischemia and infarction compared to EKG in April 2016. -Asymptomatic at this time, changes may be due to acute stress. #7 anemia, not present on admission, stable -likely a chronic process not noted on admit due to dehydration -outpatient follow up #8 Systemic Lupus erythematosus, chronic, present on admission -restart Plaquenil at 200mg BID on 01/05 monitoring for tolerance for evening dose -restart home Plaquenil at 400mg daily at discharge #9 hypertension, chronic, present on admission -restart amlodipine at 5mg can increase back to home dose at discharge #10 acute urinary retention, present on admission, active -removed Clifton today -Continue Clifton as an outpatient and start Flomax and have patient follow up with primary care physician when labs drawn on the #10 acute constipation, not present on admission, active -no BM since admission -add miralax daily and prn Dulcolax -continue senna #11 Disposition -patients assessed for SNIF by PT Disposition: Patient to be discharged to [facility] with Dr. Tom following, indications for kidney function and lab draws in 3-4 days GI Prophylaxis: Not indicated VTE Prophylaxis: Sub-Q Heparin (Unfractionated), SCDs VTE Mechanical Devices: Intermittant Pneumatic CD Resuscitation Status: CPR: Attempt Resuscitation Attending Statement The patient was seen and examined together with Dr. Blood on 01/07/2017 and I agree with the history, exam and plan as outlined in the note above. . Juan Blood DO Jan 07, 2017 08:09 Albert Richards MD Jan 10, 2017 07:32
--- NOTE | 2017-01-07 14:07 | PCM.DC.MED ---
Discharge Summary Date of Service Jan 07, 2017 Dates of Hospitalization Date of Hospital Admission Dec 30, 2016 at 21:14 Date of Discharge: Jan 07, 2017 Providers: Admitting Physician: Juju Martínez DO Primary Care Physician: [facility] Attending Physician: Juju Martínez DO Diagnosis at Time of Discharge Diagnosis at Time of Discharge #1 Acute severe sepsis #2 acute Urinary tract infection -ESBL Escherichia coli urinary tract infections, urine culture #3 acute encephalopathy #4 acute delirium #4 Acute kidney injury #5 prolonged QTC #6 EKG changes from previous #7 anemia #8 Systemic Lupus erythematosus #9 hypertension #10 acute urinary retention Consultations Infectious disease Procedures XRay, CTs & MRIs CT Abd / Pelvis Interpretation performed 12/30/2016 CONCLUSION: No CT evidence of acute intra-abdominal pathology. Diverticulosis without CT evidence of diverticulitis. Mildly enlarged prostate gland. Transmitted to ED by Ace Cordova M.D. at 12/30/2016 - 10:58:39 PM PDT Study type: Abdominal CT no contrast Interpretation / Wet Read by: Interpret - Radiologist Chest Xray Interpretation: Performed 12/30/2016 IMPRESSION: Mild appearance of increased pulmonary vascularity with bibasilar streaky opacities. The latter could be technical services representative of more prominent basilar edema versus developing airspace disease such as atelectasis and/or pneumonia. Dictated by: Yadira Arora M.D. on 12/30/2016 at 19:34 View: Portable, 1 view Interpretation / Wet Read by: Interpret - Radiologist ECG 12 Lead Sinus rhythm, rate 97. Normal axis "inferior infarct, old. Prolonged QT interval at 507, compared with previous EKG of April 2016 there is new or worsened ischemia or infarction. Significant repolarization change. Brief History From the H&P of by Neil Canseco DO "Patient is a pleasant 81-year-old gentleman with history of hypertension, pancreatitis, lupus, pyelonephritis, sepsis and Escherichia coli ESBL for which he was previously treated in April 2016. Patient reports 3 weeks ago being on a trip to [place] where he began to have his previous symptoms of back pain which correlates to the urinary tract infection. He was seen in our walk-in clinic and they prescribed him ciprofloxacin, which he took until he is able to be seen [facility] with a contact the clinic and got culture and sensitivity and found that the bug was resistant to ciprofloxacin, he was subsequent we switched to a 10 day course of nitrofurantoin which he finished one week ago. Earlier today he began to have back pain, he called urology, with a sent him prescription for antibiotics (Bactrim), he says he took 1 pill and shortly after he began to have nausea, shaking, chills, cold sweat, vomited at least 3 times. He denies any dysuria or fevers. In the emergency department he was given a dose of ertapenem, which cultures and sensitivity from April and March of last year showed the organism to be susceptible to. He received IV fluids and states since then he has been feeling progressively better. In the ER he was found to have temperature 36.3, heart rate 121, respirations 18 per minute 166/87, White blood cells 14.4 with normal differential, hemoglobin 14.2, platelets 377 , creatinine 1.4, glucose 168, CMP otherwise unremarkable. Lactic acid 7.4 initially, on recheck 4 hours later had decreased to 1.1 Urinalysis showed a cloudy sample, 6.0 pH. Specific gravity 1.025, protein 100 mg/dL, negative glucose, negative ketones, small occult blood, positive nitrates , large leukocyte esterase, packed white blood cells per high-powered field, 3- 10 red blood cells, occasional epithelial cells, On admission, he is denying any lightheadedness, dizziness, dysuria, back pain, shaking, chills, cold sweats, joint pain, myalgia diarrhea, constipation, abdominal pain." Hospital Course #1 Acute severe sepsis, present on admission, resolved -on admission Heart rate 121,tachypnea up to 32 breaths per minute, white count 14.4, source urinary tract, with encephalopathy secondary to septic process -Initial lactic acid was 7.4, however on recheck was 1.1 four hours later. -Blood cultures 2 pending, negative to date -Treatment for urinary tract infection as below #2 acute Urinary tract infection, present on admission, improving -ESBL Escherichia coli urinary tract infections, urine culture -day 7 of effective antibiotics IV (ertapenem .meropenem.ertapenem) -day 5 of oral Bactrim -Infectious disease plan is to discontinue ertapenem after today's infusion and continue Bactrim DS twice a day until January 13 with follow-up for creatinine and potassium on January 08 after January 13 patient will be continued on Bactrim once a day for indefinite -CT KUB with normal appearing kidneys -isolation #3 acute encephalopathy, not present on admission, resolved -secondary to septic process -CT scan was negative for intracranial hemorrhage -Rectal aspirin given for possible stroke -Lumbar puncture was unsuccessful to test for possible meningitis #4 acute delirium, not present on admission, improving -secondary to infection, medications, illness, being in hospital, etc -improving, low dose Seroquel (6.25 q pm) discontinued prior to discharge #4 Acute kidney injury, present on admission, resolved -Serum creatinine 1.40 on admission, currently 0.95 -discontinue Normal saline IV 100 mL per hour #5 prolonged QTC, chronicity unknown, present on admission, active -QTC was 507 on admission, electrolytes were normal, #6 EKG changes from previous, present on admission, chronicity unknown. Active -EKG was read as having worsening ischemia and infarction compared to EKG in April 2016. -Asymptomatic at this time, changes may be due to acute stress. #7 anemia, not present on admission, stable -likely a chronic process not noted on admit due to dehydration -outpatient follow up #8 Systemic Lupus erythematosus, chronic, present on admission -restart Plaquenil at 200mg BID on 01/05 monitoring for tolerance for evening dose -restart home Plaquenil at 400mg daily at discharge #9 hypertension, chronic, present on admission - restart amlodipine at 5mg can increase back to home dose at discharge #10 acute urinary retention, present on admission, active - remove Clifton today - Continue Clifton as an outpatient and start Flomax and have patient follow up with primary care physician when labs drawn on the #10 acute constipation, not present on admission, active -no BM since admission -add miralax daily and prn Dulcolax -prn senna Exam Vital Signs (Last) Date Time Temp Pulse Resp B/P Pulse Ox O2 Delivery O2 Flow Rate FiO2 01/07/17 07:50 75 01/07/17 07:43 36.4 20 116/66 98 Room Air 01/05/17 16:23 2.00 Exam General: Elderly man sitting in bed, no acute distress Eyes: anisocoria right eye greater than left, extraocular motion intact, anicteric sclera HENT: Normocephalic, atraumatic, moist mucus membranes with no central cyanosis or cobblestoning mucosa Cardiovascular: Regular rate and rhythm, no clicks murmurs rubs, peripheral pulses 2/4 equal bilaterally at radial and dorsalis pedis Pulmonary: Clear to auscultation bilaterally, no W/R/R. Abdominal: normoactive bowel sounds present 4, Soft, patient appears uncomfortable with palpation of abdomen, no hepatosplenomegaly Extremities: No edema appreciated. No tenderness, asymmetry. Neuro: Cranial nerves II through XII grossly intact : Clifton catheter in place MSK: able to move extremities, very weak Psych: Normal affect and normal mood Test 12/30/16 18:42 12/31/16 03:18 01/01/17 04:18 01/02/17 04:34 Urine Color Yellow (YELLOW) Urine Appearance Slightly cloudy Urine pH 6.0 (5.0-8.0) Urine Specific [place] 1.025 (1.003-1.035) Urine Protein 100mg/dL (NEG,TRACE) Urine Glucose (UA) Negativemg/dL (NEGATIVE) Urine Ketones Negativemg/dL (NEGATIVE) Urine Occult Blood Small (NEGATIVE) Urine Nitrite Positive (NEGATIVE) Urine Bilirubin Negative (NEGATIVE) Urine Urobilinogen Normalmg/dL (NORMAL) Urine Leukocyte Esterase Large (NEGATIVE) Urine RBC 3-10/hpf (0-2) Urine WBC Packed/hpf (0-5) Urine Epithelial Cells Occasional/hpf (NONE-MOD) Urine Crystals None seen (NONE SEEN) Urine Bacteria Many/hpf (NONE-FEW) Urine Hyaline Casts None/lpf (NONE) Urine Granular Casts None seen (NONE SEEN) Urine Waxy Casts None seen (NONE SEEN) Urine Red Blood Cell Casts None seen (NONE SEEN) Urine White Blood Cell Casts None seen (NONE SEEN) Urine Mucus None seen (None Seen) Urine Trichomonas None seen (NONE SEEN) Urine Yeast None (NONE SEEN) Urinalysis Comment None Urine Culture Reflexed Indicated Troponin T 0.014ug/L (0.0-0.011) Lipase 28U/L (13-60) Thyroid Stimulating Hormone (TSH) 0.886uIU/mL (0.450-4.500) Free Thyroxine 1.25ng/dL (0.82-1.77) Prothrombin Time 11.4sec (8.1-12.5) Prothromb Time International Ratio 1.06ratio Phosphorus Level 2.5mg/dL (2.5-4.9) Magnesium Level 2.1mg/dL (1.6-2.6) Triglycerides Level 43mg/dL (0-149) Cholesterol Level 76mg/dL (100-199) LDL Cholesterol, Calculated 34.400mg/dL (0-99) VLDL Cholesterol 8.600mg/dL HDL Cholesterol 33mg/dL (>39) Cholesterol/HDL Ratio 2.30 (0.0-4.4) Reticulocyte Count,Calculated 1.7% (0.6-2.6) Lactic Acid Level 0.9mmol/L (0.4-2.0) Iron Level 38ug/dL (35-150) Total Iron Binding Capacity 160ug/dL (250-450) Percent Iron Saturation 24%sat (15-50) Unsaturated Iron Binding 121.5ug/dL Ferritin 357ng/mL (30-400) Test 01/03/17 04:10 01/06/17 03:20 01/07/17 03:10 Vitamin B12 Level 305pg/mL (211-946) Folate > 19.9ng/mL (>3.0) Procalcitonin 0.12ng/mL (0.00-0.08) White Blood Count 9.2th/mm3 (3.8-10.1) Red Blood Count 4.27mil/mm3 (4.40-5.80) Hemoglobin 12.2g/dL (13.8-17.2) Hematocrit 36.2% (41.0-50.0) Mean Corpuscular Volume 84.8fL (81-100) Mean Corpuscular Hemoglobin 28.6pg (27.0-35.0) Mean Corpuscular Hemoglobin Concent 33.7% (32.0-37.0) Red Cell Distribution Width 14.4% (12.3-15.4) Platelet Count 187bil/L (150-400) Neutrophils (%) (Auto) 78.5% (40-74) Lymphocytes (%) (Auto) 8.3% (14-46) Monocytes (%) (Auto) 7.7% (4-12) Eosinophils (%) (Auto) 4.1% (0-5) Basophils (%) (Auto) 0.3% (0-3) Sodium Level 145mEq/L (134-144) Potassium Level 3.9mEq/L (3.5-5.2) Chloride Level 111mEq/L (97-108) Carbon Dioxide Level 19mmol/L (18-29) Blood Urea Nitrogen 13mg/dL (8-27) Creatinine 1.30mg/dL (0.76-1.27) Estimat Glomerular Filtration Rate 56mL/min (>59) Glucose Level 118mg/dL (60-99) Calcium Level 8.4mg/dL (8.5-10.1) Total Bilirubin 0.6mg/dL (0.0-1.2) Aspartate Amino Transf (AST/SGOT) 22U/L (0-50) Alanine Aminotransferase (ALT/SGPT) 15U/L (0-44) Alkaline Phosphatase 73U/L (25-160) Total Protein 5.8g/dL (6.4-8.4) Albumin 3.2g/dL (3.4-5.0) Microbiology Results Microbiology [facility] CULT URINE Final 01/01/17-0742 Organism 1 E. COLI ESBL ONCOLOGY RN U COLONY COUNT/QUANTITY >100,000 CFU/ml PLEASE NOTE This isolate has developed multiple resistance mechanisms to various classes of antibiotics. Consider Contact isolation precautions for in-patients. Contact Pharmacy. Consider Infectious Disease Specialist Consultation. RESULTS CALLED TO JUNE Rich (INFECTION CONTROL) 01/01/17 AT 0740. 1. E. COLI ESBL ONCOLOGY RN M.I.C Interp --------- ------ * AMOXICILLIN/CLAVULATE 16 I * AMPICILLIN >=32 R * CEFAZOLIN >=64 R * CEFEPIME R * CEFTRIAXONE >=64 R * CEFUROXIME SODIUM >=64 R * CIPROFLOXACIN >=4 R * ERTAPENEM <=0.5 S * GENTAMICIN <=1 S * IMIPENEM <=1 S * LEVOFLOXACIN >=8 R * NITROFURANTOIN <=16 S * TETRACYCLINE >=16 R * TOBRAMYCIN >=16 R * TRIMETHOPRIM/SULFAMETHOXAZOLE <=20 S Discharge Medications Discharge Medications Amlodipine (Amlodipine) 2.5 Mg Tablet 7.5 MG PO DAILY (Reported) Aspirin (Aspirin) 81 Mg Tablet 81 MG PO DAILY (Reported) Hydroxychloroquine Sulfate (Hydroxychloroquine Sulfate) 200 Mg Tablet 400 MG PO DAILY (Reported) L. Rhamnosus GG/Inulin (Culturelle Chewable Tablet) 10 Billion Cell-200 Mg Tab.chew 1 EACH PO BID (Reported) Saccharomyces Boulardii (Florastor) 250 Mg Capsule 250 MG PO BID Prescribed by: DARYN JORGE MD Sulfamethoxazole/Trimeth 800-160 mg (Bactrim DS 800-160 mg) 1 Each Tablet 1 TABLET PO BID Prescribed by: TRUPTI ACE DO Sulfamethoxazole/Trimeth 800-160 mg (Bactrim DS 800-160 mg) 1 Each Tablet 1 TABLET PO DAILY Prescribed by: TRUPTI ACE DO Tamsulosin (Flomax) 0.4 Mg Capsule 0.4 MG PO DAILY Prescribed by: TRUPTI ACE DO As needed Acetaminophen (Tylenol Arthritis) 650 Mg Tablet.er 650 MG PO Q4H PRN PRN For Pain (Reported) Additional med instructions Please continue to take her regularly prescribed medications as directed. These include your blood pressure medication amlodipine 7.5 mg daily, your systemic lupus erythematous hydroxychloroquine 400 mg daily. You also have prescriptions that were likely started recently for Bactrim. He will be given a new prescription for trimethoprim sulfamethoxazole double strength to be taken twice daily for the next week. He will be on trimethoprim sulfamethoxazole double strength indefinitely and will be given a prescription for once daily dosing, if he would like you can use her previous prescription for trimethoprim sulfamethoxazole double strength for your once daily dosing so this prescription does not go to waste. You also have probiotics on your prescription medication list please continue to take a daily probiotic while you were on antibiotics. We have also started tamsulosin 0.4 mg daily for urinary retention. Please continue to make take this medication and follow up with your primary care provider. The rehabilitation facility may try and remove this Clifton catheter in the next 3-5 days and see if you can urinate on your own. Followup Plan Disposition: [facility] senior living facility Follow-up plan He will require follow-up with either a provider at the rehabilitation facility likely Dr. Brendan Tom in 3 days so either on January 10 of January 11 with labs drawn for kidney function including potassium and creatinine. Please remove the Clifton catheter several hours prior to his primary care physician appointment so that he may be evaluated for urinary retention. He should follow-up with Dr. Jackson of infectious disease in 5 weeks to confirm antibiotics dosing and schedule a general wellness checks. Discharge Diet: Heart Healthy Discharge Activity: Other ([facility] physical therapy to determine) Patient Instructions He will need to take Bactrim double strength once a day for the indefinite future. Included is the microbiology from this hospitalization so since that you may show this information to any doctor for which he will are seen in the future. Follow-up Provider: Brendan Tom MD Follow-up with PCP in: 1 week (on 01/10/2017 or 01/11/2017) Provider: Tam Jackson MD Follow-up in: 5 weeks Mid-level Provider: Misael Ludwig MD Follow-up with Mid-level in: 3 weeks Time spent Greater than 30 minutes was spent in preparation of discharge with greater than 50% of that time dedicated to patient counseling and coordination of care. . Attending Statement The patient was seen and examined together with Dr. Ace on 01/07/2017 and I agree with the history, exam and plan as outlined in the note above. . copies to: Misael Ludwig MD, Nicholas K DO Jan 07, 2017 11:52 Albert Richards MD Jan 10, 2017 07:35
== END 2017-01-07 13:30 | DRG 871 ==
LOC: SED 18:12 → PCC 21:14
PROVIDERS: ADMIT Internal Medicine; ATTEND Internal Medicine
PROC: 4A033R1 Measurement of Arterial Saturation, Peripheral, Percutaneous Approach (ICD-10-PCS; principal; 2016-12-31)
DX: A41.9 Sepsis, unspecified organism (principal); G93.40 Encephalopathy, unspecified; J96.01 Acute respiratory failure with hypoxia; N39.0 Urinary tract infection, site not specified; N17.9 Acute kidney failure, unspecified; B96.20 Unspecified Escherichia coli [E. coli] as the cause of diseases classified elsewhere; H57.02 Anisocoria; I10 Essential (primary) hypertension; Z87.891 Personal history of nicotine dependence; I45.81 Long QT syndrome; R33.9 Retention of urine, unspecified; M32.9 Systemic lupus erythematosus, unspecified; D64.9 Anemia, unspecified; K59.00 Constipation, unspecified

== ENCOUNTER 2017-01-12 07:50 | Inpatient (IN) | payer MEDICARE ==
[2017-01-12] VITALS (7 sets, daily range): BP systolic 135–152; BP diastolic 54–69; PULSE 59–78; RESP 14–18; O2SAT 94–97
[~2017-01-12] VITALS: Ht 177.8 cm; Wt 72.1 kg
[~2017-01-12 07:50] MED LIST changes: -INVANZ1I IV; +L. R1TAB PO; -Probiotics; +SULF1TAB35 PO; +TAMS0.4C98 PO
--- NOTE | 2017-01-12 08:15 | ED.REPORT ---
HPI-General Illness Date of Service Jan 12, 2017 ED Provider: Yusef Thomas DO Pt is an 81 y.o. male with a current Bledsoe catheter and hx of ESBL, Lupus, HTN and who presents to the ED via EMS from [facility] c/o decreased urination onset yesterday. Pt was recently admitted to the hospital (12/30/16-01/07/17) for ESBL and sepsis and discharged to the care facility with a Bledsoe catheter in place. Per staff the pt has had a urine output of 300 since 1400 yesterday. They performed hypodermoclysis and irrigated his Bledsoe catheter with no improvement. He reports associated abdominal discomfort, fever (101F), and cough. Nursing Notes Stated Complaint: DEHYDRATION Chief Complaint: Male Abdominal Pain Nursing Notes Reviewed: Yes Allergies: Coded Allergies: lorazepam (Verified Adverse Reaction, Intermediate, Extrapyramidal Symptoms, 01/01/17) severe somnolence, lasting for 12 hours, did not recognise or respond to family members. Scheduled Amlodipine (Amlodipine) 2.5 Mg Tablet 7.5 MG PO DAILY Aspirin (Aspirin) 81 Mg Tablet 81 MG PO DAILY Hydroxychloroquine Sulfate (Hydroxychloroquine Sulfate) 200 Mg Tablet 400 MG PO DAILY L. Rhamnosus GG/Inulin (Culturelle Chewable Tablet) 10 Billion Cell-200 Mg Tab.chew 1 EACH PO BID Saccharomyces Boulardii (Florastor) 250 Mg Capsule 250 MG PO BID Sulfamethoxazole/Trimeth 800-160 mg (Bactrim DS 800-160 mg) 1 Each Tablet 1 TABLET PO BID Sulfamethoxazole/Trimeth 800-160 mg (Bactrim DS 800-160 mg) 1 Each Tablet 1 TABLET PO DAILY Tamsulosin (Flomax) 0.4 Mg Capsule 0.4 MG PO DAILY Scheduled PRN Acetaminophen (Tylenol Arthritis) 650 Mg Tablet.er 650 MG PO Q4H PRN PRN For Pain General Time Seen by MD: 08:15 Chief Complaint Other (Urination decreased) Hx Obtained From: Patient, Daughter, Loan Assistant Arrived By: Ambulance Sudden in Onset?: Yes Onset Occurred: Yesterday Context of Onset: Recent antibiotic use Symptom Duration: Since onset Location: : Abdomen Quality: Painful Severity: Current: Mild Past Medical History Past Medical History Lupus Hx of pyelonephritis, acute bacteremia, treated with ertapenem. 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 Physical Exam Vital Signs Vital Signs Date Time Temp Pulse Resp B/P Pulse Ox O2 Delivery O2 Flow Rate FiO2 01/12/17 11:18 75 18 135/54 95 Room Air 01/12/17 11:06 38.1 01/12/17 08:02 36.9 75 14 152/63 96 Room Air Initial VS: Reviewed Head / Eyes: Atraumatic, Normocephalic Extremities: Vascular intact, Neuro intact Skin: Warm, Dry, No cyanosis Neurologic: Alert, Oriented, Nonfocal Psychiatric: Mood/affect normal, Behavior normal, Normal thought content General/Constitutional: Awake, Alert, Well appearing, Well developed, Well hydrated, Well nourished, Not toxic appearing Respiratory / Chest: Atraumatic, Breath sounds NL, Breath sounds = bilat, No respiratory distress Cardiovascular: Heart rate NL, Regular rhythm, Heart sounds NL, Peripheral circulation NL No lower extremity edema Abdomen: Atraumatic, Soft, No distention Tenderness/Guarding/Rebound: Positive: Tender suprapubic Back: Atraumatic, Inspection NL, No CVA tenderness Interpretation & Diagnostics Lab Results Interpretation Result Diagram: 01/12/17 0816 01/12/17 0816 Test 01/12/17 08:16 01/12/17 10:30 White Blood Count 8.4th/mm3 (3.8-10.1) Red Blood Count 4.54mil/mm3 (4.40-5.80) Hemoglobin 12.9g/dL (13.8-17.2) Hematocrit 39.3% (41.0-50.0) Mean Corpuscular Volume 86.6fL (81-100) Mean Corpuscular Hemoglobin 28.4pg (27.0-35.0) Mean Corpuscular Hemoglobin Concent 32.8% (32.0-37.0) Red Cell Distribution Width 14.8% (12.3-15.4) Platelet Count 178bil/L (150-400) Neutrophils (%) (Auto) 80.8% (40-74) Lymphocytes (%) (Auto) 6.1% (14-46) Monocytes (%) (Auto) 6.6% (4-12) Eosinophils (%) (Auto) 5.4% (0-5) Basophils (%) (Auto) 0.4% (0-3) Hold Purple Top Tube Received (Received) Hold Blue Top Tube Received (Received) Sodium Level 135mEq/L (134-144) Potassium Level 4.5mEq/L (3.5-5.2) Chloride Level 101mEq/L (97-108) Carbon Dioxide Level 18mmol/L (18-29) Blood Urea Nitrogen 20mg/dL (8-27) Creatinine 1.62mg/dL (0.76-1.27) Estimat Glomerular Filtration Rate 44mL/min (>59) Glucose Level 114mg/dL (60-99) Lactic Acid Level 1.5mmol/L (0.4-2.0) Calcium Level 8.8mg/dL (8.5-10.1) Magnesium Level 2.1mg/dL (1.6-2.6) Total Bilirubin 0.7mg/dL (0.0-1.2) Aspartate Amino Transf (AST/SGOT) 83U/L (0-50) Alanine Aminotransferase (ALT/SGPT) 78U/L (0-44) Alkaline Phosphatase 93U/L (25-160) Troponin T 0.010ug/L (0.0-0.011) Total Protein 6.9g/dL (6.4-8.4) Albumin 3.4g/dL (3.4-5.0) Hold Red Top Tube Received (Received) Hold [place] Top Tube Received (Received) Hold [place] Top Tube Received (Received) Urine Color Yellow (YELLOW) Urine Appearance Hazy (CLEAR,HAZY) Urine pH 5.0 (5.0-8.0) Urine Specific [place] 1.020 (1.003-1.035) Urine Protein Tracemg/dL (NEG,TRACE) Urine Glucose (UA) Negativemg/dL (NEGATIVE) Urine Ketones Negativemg/dL (NEGATIVE) Urine Occult Blood Small (NEGATIVE) Urine Nitrite Negative (NEGATIVE) Urine Bilirubin Negative (NEGATIVE) Urine Urobilinogen Normalmg/dL (NORMAL) Urine Leukocyte Esterase Negative (NEGATIVE) Urine RBC >50/hpf (0-2) Urine WBC 0-5/hpf (0-5) Urine Epithelial Cells Few/hpf (NONE-MOD) Urine Crystals Uric acid crystals (NONE Urine Bacteria None/hpf (NONE-FEW) Urine Hyaline Casts None/lpf (NONE) Urine Granular Casts None seen (NONE SEEN) Urine Waxy Casts None seen (NONE SEEN) Urine Red Blood Cell Casts None seen (NONE SEEN) Urine White Blood Cell Casts None seen (NONE SEEN) Urine Mucus None seen (None Seen) Urine Trichomonas None seen (NONE SEEN) Urine Yeast None (NONE SEEN) Urinalysis Comment None Urine Culture Reflexed Not indicated ECG Interpretation Time: 08:37 Interpreted by: ED physician Normal ECG Interpretation: Normal rate (69), Normal sinus rhythm X-Ray Chest Interpretation Chest Xray Interpretation: IMPRESSION: No acute process. Dictated by: Trevin Louis M.D. on 01/12/2017 at 9:39 Approved by: Trevin Louis M.D. on 01/12/2017 at 9:40 Re-Eval/Medical Decision Med Decision/Clinical Course Persistent fever, decreased oral intake, hydration, elevated creatinine, concern for occult bacteremia, discuss with infectious disease who agrees with admission. Source of Hx: Old records Time of Eval: 10:40 Patient Status: Condition improved Re-Evaluation/Progress Note: Pt rechecked. After bledsoe was replaced pt was able to have urine output. Pt states he feels improved. He is concerned as he has no appetite. Time of Eval: 11:04 Re-Evaluation/Progress Note: Pt rechecked. Discussed plan for admit, pt and family understand and agree with plan. Consultation #1: Referral / Consult Name: Tam Jackson MD Call Returned at: 11:26 Note: Discussed pt condition. He recommends pt be admitted and administered 1g ertapenum daily. He will consult on pt. Consultation #2: Referral / Consult Name: Lyle Dominguez MD Call Returned at: 11:58 Net Repairer: Will see patient, Agrees with eval, Agrees with plan, Accepts admit Note: Discussed pt condition and consult with Dr. Jackson. Accepts admit. Counseled Regarding: Diagnosis, Lab results, Need for admission Discharge & Departure Primary Impression: RYAN (acute kidney injury) Additional Impressions: Fever Fever type: unspecified Qualified Code: R50.9 - Fever, unspecified Dehydration History of ESBL E. coli infection Disposition: ADMITTED TO HOSPITAL Discharge Condition All VS Reviewed: Yes Condition: Improved Referrals: [facility] (PCP) Philip Attestation Portions of this note were transcribed by Diego Lott. I, Dr. Thomas personally performed the history, physical exam and medical decision-making; I reviewed and confirmed the accuracy of the information in the transcribed note. Signed by: Philip Carpenter, 01/12/17 and 1200. copies to: [facility] Yusef Thomas DO Jan 12, 2017 08:15 DIEGO LOTT Jan 12, 2017 08:24
[2017-01-12] MEDS ORDERED: 0.9% Sodium Chloride 1,000 ML IV ONE (08:29)
[2017-01-12 09:39] LABS: BASOPHILS % (AUTO) 0.4 % (0-3); EOSINOPHILS % (AUTO) 5.4 % (0-5); MONOCYTES % (AUTO) 6.6 % (4-12); Mean Corpuscular Hemoglobin 28.4 pg (27.0-35.0); Mean Corpuscular Volume 86.6 fL (81-100); NEUTROPHILS % (AUTO) 80.8 % (40-74); Platelet Count 178 bil/L (150-400)
--- NOTE | 2017-01-12 09:41 | DRSVH ---
PROCEDURE: X-RAY CHEST ONE VIEW, PORTABLE ([id number]) INDICATIONS: cough, fever TECHNIQUE: One view of the chest was acquired. COMPARISON: [facility], CR, XR CHEST 1VW (PORTABLE), 01/01/2017, 5:43. [facility], CR, XR CHEST 1VW (PORTABLE), 12/31/2016, 20:01. FINDINGS: Surgical changes and devices: None. Lungs and pleura: No pleural effusions or pneumothorax. Lungs are clear. Mediastinum: Mediastinal contours appear normal. Heart size is normal. Bones and chest wall: No suspicious bony lesions. Overlying soft tissues appear unremarkable. IMPRESSION: No acute process. Dictated by: Trevin Louis M.D. on 01/12/2017 at 9:39 Approved by: Trevin Louis M.D. on 01/12/2017 at 9:40
[2017-01-12 09:48] LABS: TROPONIN T 0.01 ug/L (0.0-0.011)
[2017-01-12 10:00] LABS: Magnesium 2.1 mg/dL (1.6-2.6)
[2017-01-12] MEDS ORDERED: 0.9% Sodium Chloride 500 ML IV ONE (10:55)
[2017-01-12 11:07] LABS: APPEARANCE,URINE HAZY (CLEAR,HAZY); COLOR,URINE YELLOW (YELLOW)
[2017-01-12 11:08] LABS: OCCULT BLOOD,URINE SMALL (NEGATIVE); UROBILINOGEN,URINE NORMAL (NORMAL)
[2017-01-12] MEDS ORDERED: Meropenem Inj 1,000 MG in IV Premix 1 EACH IV ONE (11:10)
[2017-01-12] MEDS ORDERED: 0.9% Sodium Chloride 1,000 ML IV SCH (12:01)
[2017-01-12] MEDS ORDERED: Ondansetron 2 mg/mL 2 mL Inj IVPUSH PRN ×2 (12:05→14:05)
[2017-01-12] MEDS ORDERED: Alum-Mag Hydrox-Simeth 30 mL Suspension PO PRN ×2 (12:05→14:05)
--- NOTE | 2017-01-12 12:31 | DRSVH ---
PROCEDURE: US ABDOMEN ([id number]) INDICATIONS: fever, elevated LFT TECHNIQUE: Real-time scanning was performed of the abdominal and retroperitoneal organs, with image documentatio n. COMPARISON: [facility], CT, CT ABD PELVIS W CON, 04/28/2016, 21:06. [facility] al, CT, CT KUB, 12/30/2016, 22:36. FINDINGS: Liver: Liver is normal in size and demonstrates coarse echotexture within the right and left hepatic lobes. Gallbladder: Demonstrates a thickened wall measuring 4 mm. Patient is postprandial. No cholelithiasis . No sonographic Lam's sign. Biliary ducts: Intrahepatic bile ducts are non-dilated. Extrahepatic bile duct caliber measures 6.5 mm. Normal is 6-7 mm or less in diameter, or 10 mm or less post-cholecystectomy. Pancreas: Visualized portions of the pancreas are sonographically normal. Spleen: Spleen is normal in size and homogeneous in echotexture. Kidneys: Kidneys are normal in size and echotexture. Right kidney measures 10.0 cm long; left kidne y measures 10.2 cm long. No hydronephrosis or nephrolithiasis. No solid masses. Aorta: Visualized aorta is normal in caliber at less than 3 cm. Iliacs: Not well-seen. IVC: Intrahepatic inferior vena cava is patent. Miscellaneous: No free abdominal fluid. IMPRESSION: 1. Possible gallbladder wall thickening. Finding may represent postprandial state. Negative sonograph ic Lam's sign. No cholelithiasis. Close clinical followup is recommended, with repeat imaging, if clinically warranted. 2. Coarse hepatic echotexture, which may indicate hepatitis versus atypical appearance of hepatic arabella atosis. Dictated by: Trevin Louis M.D. on 01/12/2017 at 12:27 Approved by: Trevin Louis M.D. on 01/12/2017 at 12:29
--- NOTE | 2017-01-12 13:30 | NUR ---
admit Pt arrived on unit from ER. Pt was able to ambulate from bed to bed with a mildly unstable gait. Uses FWW at baseline. VS within normal limits, afebrile, no pain and tele in place. Pt is alert and oriented and [place]; hearing aides at home. Med rec completed with at bedside. Pt had a BM few minutes after arriving to unit. Pt had arrived with clogged Clifton when admitted to ER and new one was placed in ER- draining gabby urine. Pt is watching tv and ordered dinner and breakfast.
[2017-01-12] MEDS ORDERED: Polyethylene Glycol (PEG) 17 Gm Powder PO PRN (14:05)
--- NOTE | 2017-01-12 14:51 | PCM.HPMED ---
Subjective Date of Service Jan 12, 2017 Primary Provider: Admitting Physician: Lyle Dominguez MD [facility] Attending Physician: Lyle Dominguez MD Chief Complaint: Fever History of Present Illness: Mejia Ho is a 81-year-old gentleman with history of hypertension, pancreatitis, lupus, pyelonephritis, sepsis and Escherichia coli ESBL for which he was previously treated multiple times, mostly recently 12/30/16-01/07/17 who presented to the [facility] ED today due to decreased urinary output and fever. His issues with ESBL began 4 weeks ago on a trip to [place] where he had previous symptoms of back pain which he correlated to the urinary tract infection. He was seen in urgent care where he was prescribed ciprofloxacin until he is able to be seen [facility]. Unfortunately a urine culture noted resistance to ciprofloxacin and he was started on nitrofurantoin. His antibiotics were then again switched to Bactrim and he was shortly thereafter admitted with sepsis. He underwent treatment with 7 days of carbapenems as well as 5 days of Bactrim with plan to be treated indefinitely with Bactrim and discharged to the care facility with a Clifton catheter in place. Per staff the patient has had a urine output of 300 since 1400 yesterday. They performed hypodermoclysis and irrigated his Clifton catheter with no improvement. He reports associated abdominal discomfort, fever (101F), and cough. He denies any back pain, chills, nausea, vomiting, diarrhea or suprapubic pressure or pain. In the ED his vitals were T 38.1 HR 75 RR 14 BP 152/63 with O2 Sat 96% on room air. His Clifton was replaced which successfully drained. Dr. Jackson was consulted by the ED and the patient was started on ertapenem per his recommendation. Review of Systems: A comprehensive review of systems was conducted with the patient and found to be negative except as above in the History of Present Illness. Allergies Coded Allergies: lorazepam (Verified Adverse Reaction, Intermediate, Extrapyramidal Symptoms, 01/01/17) severe somnolence, lasting for 12 hours, did not recognise or respond to family members. Home Medications Discharge Medications Amlodipine (Amlodipine) 2.5 Mg Tablet 7.5 MG PO DAILY (Reported) Aspirin (Aspirin) 81 Mg Tablet 81 MG PO DAILY (Reported) Hydroxychloroquine Sulfate (Hydroxychloroquine Sulfate) 200 Mg Tablet 400 MG PO DAILY (Reported) L. Rhamnosus GG/Inulin (Culturelle Chewable Tablet) 10 Billion Cell-200 Mg Tab.chew 1 EACH PO BID (Reported) Saccharomyces Boulardii (Florastor) 250 Mg Capsule 250 MG PO BID Prescribed by: DARYN JORGE MD Sulfamethoxazole/Trimeth 800-160 mg (Bactrim DS 800-160 mg) 1 Each Tablet 1 TABLET PO BID Prescribed by: TRUPTI ACE DO Sulfamethoxazole/Trimeth 800-160 mg (Bactrim DS 800-160 mg) 1 Each Tablet 1 TABLET PO DAILY Prescribed by: TRUPTI ACE DO Tamsulosin (Flomax) 0.4 Mg Capsule 0.4 MG PO DAILY Prescribed by: TRUPTI ACE DO As needed Acetaminophen (Tylenol Arthritis) 650 Mg Tablet.er 650 MG PO Q4H PRN PRN For Pain (Reported) PMH Lupus Pyelonephritis, acute bacteremia, treated with ertapenem. 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 Surgical History Denies any surgical history Family History Father of stomach cancer at 90 years old Mother from end-stage renal disease at 87 years old 2 older brothers from cancer, one from back cancer at 70 years old, the other from jaw cancer at 71 secondary to tobacco use Social History Hx Alcohol Use: No Hx Substance Use: No Hx Tobacco Use: Yes (quit approx 30 years ago) Smoking Status: Former Smoker Exam Vital Signs Vital Sign - Last Date Time Temp Pulse Resp B/P Pulse Ox O2 Delivery O2 Flow Rate FiO2 01/12/17 13:32 36.7 73 18 136/69 94 Room Air Exam General: No acute distress, well-developed, well-nourished, appropriately interactive HEENT: Normocephalic, atraumatic. External ears without defect. Pupils equal, round, and reactive to light and accommodation. Anicteric sclerae, moist conjunctivae, and no lid lag. Oropharynx free of erythema and cobble stoning with moist mucosa. Neck: Supple with full range of motion. No jugular venous distension. No bruits. No lymphadenopathy or thyromegaly. Cardiovascular: Regular rate and rhythm with no murmurs, rubs, or gallops appreciated Pulmonary: Clear to auscultation bilaterally with no crackles, wheezes, or rhonchi. Normal respiratory effort with no use of accessory muscles. Abdomen: Bowel tones present. Soft, nontender, nondistended. No hepatosplenomegaly or masses appreciated. : Clifton in place draining clear yellow urine. Extremities: No clubbing, cyanosis, edema, or lymphadenopathy appreciated. Skin: Normal temperature, turgor, and texture. Generalized erythema of face and neck. Neurological: Cranial nerves grossly intact. Normal muscle strength, tone, and bulk. Reflexes, coordination, and sensory function within normal limits. No known gait impairment. Psychiatric: Normal mood and affect. Alert and oriented to person, place, and time. Lab and Diagnostics Result Diagram: 01/12/17 0816 01/12/17 0816 X-Rays, CTs and MRIs X-RAY CHEST ONE VIEW, PORTABLE IMPRESSION: No acute process. Dictated by: Trevin Louis M.D. on 01/12/2017 at 9:39 US ABDOMEN IMPRESSION: 1. Possible gallbladder wall thickening. Finding may represent postprandial state. Negative sonographic Lam's sign. No cholelithiasis. Close clinical followup is recommended, with repeat imaging, if clinically warranted. 2. Coarse hepatic echotexture, which may indicate hepatitis versus atypical appearance of hepatic steatosis. Dictated by: Trevin Louis M.D. on 01/12/2017 at 12:27 Assessment & Plan Mejia Ho is a 81-year-old gentleman with history of hypertension, pancreatitis, lupus, pyelonephritis, sepsis and Escherichia coli ESBL for which he was previously treated multiple times, mostly recently 12/30/16-01/07/17 who presented to the [facility] ED today due to decreased urinary output and fever. Chronic urinary tract infection with ESBL, present on admission, ongoing -Patient has an indwelling catheter chronically, prior culture grew ESBL -Patient was treated extensively at his last visit due to sepsis, however currently he does not meet SIRS criteria -Per Dr. Jackson patient was started on ertapenem 1 gm daily. He will follow up tomorrow. -Will continue Bactrim BID -Unclear if this is really a treatment failure. Patient's fever could have been due to obstruction. -Contact isolation Acute kidney injury, present on admission, ongoing -Serum creatinine 1.60 with baseline around 1 -Likely secondary to obstruction although BUN:Cr is not consistent with prerenal , however it was not consistent at prior admission -Anticipate tomorrow's Cr will be improved with better drainage of the catheter -Normal saline IV 100 mL per hour for now Normocytic normochromic anemia, present on admission, ongoing -Likely a chronic process due to SLE Systemic Lupus erythematosus, chronic, present on admission -Continue home Plaquenil at 400mg daily at discharge Hypertension, chronic, present on admission - Continue home amlodipine Urinary retention, present on admission, ongoing - Patient has Clifton - Continue Flomax CODE STATUS: FULL CODE Patient is admitted under observation status with expected length of stay less than 2 midnights due to severity of presenting symptoms, risk of adverse event, and complexity of treatment plan Resuscitation Status: CPR: Attempt Resuscitation Attending Statement The patient was seen and examined together with Dr. Snowden on 01/12/2017 and I agree with the history, exam and plan as outlined in the note above. Sho Snowden DO Jan 12, 2017 14:11 Lyle Dominguez MD Jan 12, 2017 17:41
--- NOTE | 2017-01-12 15:00 | NUR ---
Evaluation completed. Please go to "Notes" then click on "Assessments and Notes" (bottom left corner of screen). Then select appropriate discipline tab on top of screen.
[2017-01-12] MEDS: 0.9% Sodium Chloride 1,000 ML IV SCH (16:02)
[2017-01-12] MEDS: Heparin 5,000 Unit/mL Inj SUBQ SCH (17:01)
[2017-01-12] MEDS ORDERED: Trimethoprim-Sulfa 160 mg-800 mg Tablet PO SCH (20:30)
[2017-01-12] MEDS ORDERED: RHAMNOSUS GG PO SCH (20:30)
[2017-01-12] MEDS ORDERED: INULIN PO SCH (20:30)
[2017-01-13 00:02] VITALS: BP 133/68; PULSE 59; RESP 16; O2SAT 96
[2017-01-13] MEDS: Heparin 5,000 Unit/mL Inj SUBQ SCH ×3 (00:57→15:48)
--- NOTE | 2017-01-13 03:15 | NUR ---
Fever Patient had temp 99.9F appeared flushed. given 650mg tylenol. 1 hour later patients temperature improved to 98.6F will continue to monitor.
[2017-01-13 03:44] VITALS: BP 138/69; PULSE 62; RESP 18; O2SAT 96
[2017-01-13] MEDS: 0.9% Sodium Chloride 1,000 ML IV SCH (04:19)
[2017-01-13 07:47] LABS: BASOPHILS % (AUTO) 0.7 % (0-3); EOSINOPHILS % (AUTO) 7.7 % (0-5); MONOCYTES % (AUTO) 8.3 % (4-12); Mean Corpuscular Hemoglobin 28.2 pg (27.0-35.0); Mean Corpuscular Volume 87.3 fL (81-100); NEUTROPHILS % (AUTO) 71.1 % (40-74); Platelet Count 153 bil/L (150-400)
[2017-01-13] MEDS ORDERED: Trimethoprim-Sulfa 160 mg-800 mg Tablet PO SCH (08:30)
[2017-01-13 08:32] LABS: Phosphorus 2.3 mg/dL (2.5-4.9)
[2017-01-13] MEDS: Hydroxychloroqine 200 mg Tablet PO SCH (08:34)
[2017-01-13] MEDS: Ertapenem Inj 1,000 MG in 0.9% Sodium Chloride 50 ML IV SCH (08:40)
[2017-01-13 09:22] VITALS: BP 160/73; PULSE 77; RESP 18; O2SAT 94
--- NOTE | 2017-01-13 13:16 | PCM.PNMED ---
Subjective Date of Service Jan 13, 2017 Subjective Uneventful overnight, but still with mild fever. This morning Mejia reports he is doing ok. He complains of constipation and would like a bowel regimen. He also endorses fever and some suprapubic pain but denies any flank pain or n/v. He continues to have a bledsoe catheter in place. Exam Vital Signs Vital Sign - Last Date Time Temp Pulse Resp B/P Pulse Ox O2 Delivery O2 Flow Rate FiO2 01/13/17 09:22 36.7 77 18 160/73 94 Room Air Intake and Output 01/12/17 01/12/17 01/13/17 Cumulative From/Thru 15:00 23:00 07:00 01/12/17 08:02 - 01/13/17 05:16 Intake Total 999 ml 194 ml 1327 ml 2520 ml Output Total 1800 ml 1050 ml 2850 ml Balance 999 ml -1606 ml 277 ml -330 ml Intake Oral 0 ml 540 ml 540 ml IV Total 999 ml 194 ml 787 ml 1980 ml Output Urine Total 1800 ml 1050 ml 2850 ml # Bowel Movements 1 1 Exam General: Well developed male who appears in No acute distress. HEENT: Normocephalic, atraumatic. External ears without defect. Pupils equal, round, and reactive to light and accommodation. Anicteric sclerae, moist conjunctivae, and no lid lag. Oropharynx free of erythema and cobble stoning with moist mucosa. Neck: Supple with full range of motion. No jugular venous distension. No bruits. No lymphadenopathy or thyromegaly. Cardiovascular: Regular rate and rhythm with soft systolic murmur Pulmonary: Clear to auscultation bilaterally with no crackles, wheezes, or rhonchi. Normal respiratory effort with no use of accessory muscles. Abdomen: Bowel tones present. Soft, nontender, nondistended. : Bledsoe in place draining clear yellow urine. Mild suprapubic tenderness Extremities: No clubbing, cyanosis, edema, or lymphadenopathy appreciated. Skin: Normal temperature, turgor, and texture. Generalized erythema of face and neck. Neurological: Cranial nerves grossly intact. Normal muscle strength, tone, and bulk. Psychiatric: Normal mood and affect. Alert and oriented to person, place, and time. IVs and Medications Medications Reviewed: Medications were reviewed in detail Lab and Diagnostics Result Diagram: 01/13/17 0741 01/13/17 07 X-Rays, CTs and MRIs X-RAY CHEST ONE VIEW, PORTABLE IMPRESSION: No acute process. Dictated by: Trevin Louis M.D. on 01/12/2017 at 9:39 US ABDOMEN IMPRESSION: 1. Possible gallbladder wall thickening. Finding may represent postprandial state. Negative sonographic Lam's sign. No cholelithiasis. Close clinical followup is recommended, with repeat imaging, if clinically warranted. 2. Coarse hepatic echotexture, which may indicate hepatitis versus atypical appearance of hepatic steatosis. Dictated by: Trevin Louis M.D. on 01/12/2017 at 12:27 Assessment & Plan Mejia Ho is a 81-year-old gentleman with history of hypertension, pancreatitis, lupus, pyelonephritis, and recurrent Escherichia coli ESBL UTI who presented to the [facility] ED due to decreased urinary output and fever x 2 days. Of note he was recently discharged on for 01/07/17 for ESBL UTI with sepsis. Hospital Day #2 # Possible Acute recurrent complicated UTI , POA -Patient has an indwelling catheter placed from last admission. He Reports his symptoms and fevers had improved on discharge and he was compliant with his PO Bactrim, but developed new onset fevers 2 days ago. This presentation is eerily similar to an episode last year where he failed Bactrim PO and had to be re- admitted for IV Ertapenem to treat his ESBL E. coli UTI. -Per Dr. Jackson patient was started on ertapenem 1 gm daily. ID team will evaluate patient. -urinalysis did not show pyuria and hence urine culture not sent before antibiotics.ordered urine culture today,will ask lab if they have initial sample from yesterday -Discontinued Bactrim PO BID while on IV abx, patient reports he had moderate N/ V with this medication. -Contact isolation in place -UA was benign except 11-50 RBC. Will plan to culture urine -bledsoe exchanged in ED on 01/12/17 # Acute kidney injury, present on admission, ongoing - Resolved -Serum creatinine 1.60 on admission, with baseline around 1 -Resolved, IV fluids discontinued. # Normocytic normochromic anemia, present on admission, ongoing -Likely a chronic process due to SLE # Systemic Lupus erythematosus, chronic, present on admission -Continue home Plaquenil at 400mg daily at discharge # Hypertension, chronic, present on admission - Continue home amlodipine # Urinary retention, present on admission, ongoing - Patient has indwelling Bledsoe from last admission. - Will titrate up Flomax and have a voiding trial after removing Bledsoe tomorrow CODE STATUS: FULL CODE Dispo: Patient will require at least 2-3 more days for evaluation and IV antibiotics, status changed to inpatient due to risk of adverse side effects and medical complexity. Pain Evaluation: Adequate Pain Control VTE Mechanical Devices: Intermittant Pneumatic CD Resuscitation Status: CPR: Attempt Resuscitation Attending Statement The patient was seen and examined independently on 01/13/2017and case discussed with Dr. Oneal , I agree with the history, exam and plan as outlined in the note above. Obi Oneal DO Jan 13, 2017 13:16 Philippe Brown MD Jan 13, 2017 15:50
--- NOTE | 2017-01-13 13:47 | NUR ---
Mentation patient is alert and oriented X3. Able to make needs known. Notified doctor r/t elevated SBP this morning and aware. patient is asymptomatic and ambulated in the hallway using FWW with nursing staff. Dr ball at bed side speaking to family and patient. PRN Miralax given for constipation with effective results. Clifton patent and draining with out difficulty. IV saline locked per orders. family at bed side. call light with in reach for safety. stable mood. Will continue to monitor vitals signs, pain, and safety.
[2017-01-13 15:00] VITALS: BP 149/75; PULSE 72; RESP 15; O2SAT 98
--- NOTE | 2017-01-13 15:24 | NUR ---
Physical therapy Physical therapy at bed side and patient practiced stairs.
--- NOTE | 2017-01-13 15:27 | NUR ---
Social Work Initial Assessment Readiness for Discharge Data: Pt is an 81 y/o male who was admitted on 01/12/17 for fever, ESBL, RYAN, and dehydration per H&P. Pt's insurance is Medicare and PCP is [facility]. EMR reviewed. Pts readmit risk score is 2. GRACE met with pt, Ranjana and daughter Gardenia at bedside to discuss discharge planning. SW role explained. Pt is alert and oriented x3. Pt is from [facility] and prior to that is from home with in [place]. Home is single level with one step to enter. Pt remains independent with ADLs and daughter states she has obtained a FWW for him. Pt does minimal driving at baseline. Pt has no HH history or preference. Choice list provided and pt stated [facility] as his preference. Pt stated he has completed DPOA/Advanced Directive paperwork and daughter will provide hospital with a copy. Pt has VA benefits and no alf care benefits. PT is recommending outpatient physical therapy. Pt states he will not be driving in his current physical condition. Pt is agreeable to services for PT. SW made referral to [facility]. Pts family to provide transport home at discharge. SW provided phone number and plan on white board in room. SW will continue to follow. Assessment: Pt who is independent at baseline and would benefit from services. P: Pt will discharge home via family in POV. Referral made to [facility] RN/PT. Face to face in the folder. SW will continue to follow. Addendum: 01/13/17 at 1528 by INGA LUCIANO Amended: Links added.
--- NOTE | 2017-01-13 16:04 | NUR ---
D/C from skilled PT -Pt is discharged from skilled PT at this time. Cont. ambulation with NSG/family w/ FWW at this time.
--- NOTE | 2017-01-13 17:27 | NUR ---
Ambulation Patient ambulated 2x this shift using FWW. Denies SOB or difficulty breathing. Dr barrios at bed side.
--- NOTE | 2017-01-13 18:26 | NUR ---
Case Management: COS to IP. Attempted to provide patient with IMM but he has been sleeping soundly. Will try again later this evening. Cedric Wu RN Addendum: 01/13/17 at 2102 by CEDRIC WU IMM explained to patient at 2029, all questions answered. Signed original placed in chart, copy given to patient. Cedric Wu RN
--- NOTE | 2017-01-13 19:39 | CONS ---
[address] [address] CONSULTATION REPORT PATIENT: WENDY ARIZA : 1935 MR#: [id number] ADMIT: 01/12/2017 JOB ID: [id number] DATE OF SERVICE: 01/13/[address] Yusef Thomas for this consult. REASON FOR CONSULT: ESBL E. coli complicated urinary tract infection with possible Bactrim drug allergy. HISTORY OF PRESENT ILLNESS: The patient is an 81-year-old gentleman extremely well known to us from a couple of recent admissions. The patient was admitted to this facility last summer with bacteremic ESBL E. coli infection. He was treated with IV ertapenem and did relatively well until December of this year when he developed another complicated ESBL E. coli urinary tract infection. The mid December episode was associated with encephalopathy which was quite profound but not with bacteremia, and he had only positive blood cultures for the ESBL E. coli. We treated him initially with ertapenem which was briefly changed to meropenem because of concerns about meningitis which were allayed after a normal lumbar puncture. He eventually did extremely well on ertapenem, but we tried him for a few days on Bactrim in the hopes that he could be treated orally rather than IV for this ESBL E. coli which is only sensitive to Bactrim in terms of potential oral agents. The patient tolerated Bactrim for a few days here, and so we stopped his ertapenem and sent him to a rehab facility on January 07 with plans to complete one additional week of oral Bactrim 1 double strength twice a day. The patient initially seemed to tolerate this, but during his last few days at the shelter he developed anorexia, nausea, malaise and fatigue. The patient states he did not have any issues with drug rash, sores in the mouth, vomiting or diarrhea but just weakness, nausea and just generalized malaise. He notes that even his interest in drinking liquids diminished, and they believed he was getting to be dehydrated. He also had a bit of suprapubic discomfort. Recall that he actually was transferred to the rehab facility with a Clifton catheter with plans to be reevaluated by Urology January 14. It was noted at the rehab facility that his urine output was dropping in the days leading up to yesterday's transfer back to this facility. Yesterday afternoon, I was contacted by the ED. They reported the patient had been sent from the rehab facility to be reevaluated and they were concerned about diminished urine output, increasing creatinine, increased LFTs and a low-grade fever. I recommended the patient be put back on ertapenem, and he be readmitted which has happened overnight. Overnight, the patient received hydration and has been placed back on IV ertapenem. He and his daughter, who is with him today, report that he is rapidly returning to his normal state of health today and feeling quite a bit better. He hopes that rather than go back to the rehab facility he can head home. They also note that he has a followup with Urology already scheduled for tomorrow afternoon. No fevers or chills or sweats at this point. He has had no more of his mental status changes that were a problem during his mid December admission. No sore throat, no pulmonary symptoms, and currently, no nausea or vomiting. PAST MEDICAL HISTORY: 1. 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 2. Lupus for which he is on no specific therapy. 3. Hypertension. 4. Recurrent pancreatitis. SOCIAL HISTORY: The patient lives in the local area with his family. He quit smoking and drinking 30 years ago. 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 FAMILY HISTORY: No family history of tuberculosis in first-degree relatives. REVIEW OF SYSTEMS: Was done. The patient currently has no significant headache. No sore throat or sores in the mouth. He denies skin rash. No pulmonary symptoms such as cough or shortness of breath. No nausea or vomiting. His anorexia is improving. No suprapubic pain today. No problems with the Clifton other than the general irritation of having it present. No swelling of the legs. Remainder of the review of systems is negative. PHYSICAL EXAMINATION: Reveals a raghu-complected gentleman in no acute distress. He is alert and oriented this afternoon and eager to go home. When he first came back to the ED yesterday, his temperature was 38.1. Since then, he has been afebrile and he is currently 36.8, pulse 72, respiratory rate 15, blood pressure 149/75, saturating well on room air. He is awake, alert, oriented. He has had no head trauma, no conjunctivitis or scleral icterus. The mucous membranes of the mouth and lips appear normal without slough, ulcerations or pharyngitis. His neck is supple. Lungs relatively clear. Cardiac tones: Regular rate and rhythm without murmur. Abdomen is soft and nontender without organomegaly. A Clifton catheter is present, draining clear yellow urine. There is no suprapubic tenderness at this point. His extremities are without significant edema. Motor strength intact. No evidence of synovitis or joint inflammation. Neurologically, otherwise completely intact. LABORATORIES: Include a white count of 8400 yesterday, 6000 today. Normal diff except for 7% eos. His creatinine is 1.1 now which is his baseline. It was 1.6 yesterday in the ED which is one of the reasons he got readmitted. His ALT when he left the hospital a week ago was 15; it is now 94. His bilirubin is 0.5. Procalcitonin 0.29. Urinalysis with no white cells at all; they were packed last time we checked two weeks ago, and his blood cultures are negative. An abdominal ultrasound was done yesterday in the ED and shows gallbladder wall thickening, but negative sonographic Lam's sign. No stones were noted. Yesterday's chest radiograph was normal. IMPRESSION: This patient has had a terrible time with the extended spectrum beta lactamase Escherichia coli urinary tract infections. Last summer, he was septic with extended spectrum beta lactamase Escherichia coli in his blood and urine and he got through that hospitalization okay with prolonged treatment with ertapenem. In the middle of this month, he came back with confusion, fever and an ESBL E. coli complicated urinary tract infection that was not associated with bacteremia. He eventually cleared with carbapenem therapy. Because the organism is only sensitive to Bactrim as an oral agent, we watched him a few days in the hospital to make sure he tolerated the Bactrim and then sent him to a fdc facility where he appears to have developed evidence of BACTRIM intolerance. I believe his low-grade fevers, elevated LFTs, anorexia and generalized malaise are all on the basis of Bactrim and would not treat this patient any further with TRIMETHOPRIM SULFAMETHOXAZOLE-CONTAINING AGENTS. This is unfortunate because he seems to be colonized and repetitively infected with an organism for which we will have no oral alternative, but I would not subject him to BACTRIM or SEPTRA-TYPE PRODUCTS in the future. RECOMMENDATIONS: 1. I will continue ertapenem overnight 1 g once a day with a dose tomorrow morning. 2. No more bactrim. 3. Will label the chart as SULFA INTOLERANCE. 4. If the patient is free of fever, has no elevated white count, and his blood cultures are negative tomorrow morning, I think he can be discharged around noontime to go directly across the street for his urology appoint with Dr. Cardoso which is already scheduled at 2:30. Whether or not his Clifton is pulled here before he goes over there or is done in Dr. Cardoso's office is something that Dr. Brown and Dr. Cardoso can negotiate. 5. I would like to see the patient in my office on January 22, and they have my number and will arrange that.
[2017-01-13 20:27] VITALS: BP 124/68; PULSE 72; RESP 17; O2SAT 96
[2017-01-14] MEDS: Heparin 5,000 Unit/mL Inj SUBQ SCH ×2 (00:23→08:10)
--- NOTE | 2017-01-14 05:48 | NUR ---
Uneventful Night Pt no complains and sleeping comfortably overnight, denies any pain/SOB/N/V/urinary discomfort/fever/chills. VSS, fine crackles at bilateral posterior LLs, cough/deep breathing encouraged. HR regular, 70s, no murmur. Abdomen soft, non-tender, BT slightly hypoactive. Clifton patent, put out 550ml gabby urine, plan to DC Clifton and void trial today.
[2017-01-14 05:51] LABS: BASOPHILS % (AUTO) 0.4 % (0-3); EOSINOPHILS % (AUTO) 6.9 % (0-5); MONOCYTES % (AUTO) 8.8 % (4-12); Mean Corpuscular Hemoglobin 28.5 pg (27.0-35.0); Mean Corpuscular Volume 86.4 fL (81-100); NEUTROPHILS % (AUTO) 62.9 % (40-74); Platelet Count 159 bil/L (150-400)
[2017-01-14 07:41] VITALS: BP 133/68; PULSE 57; RESP 17; O2SAT 94
[2017-01-14] MEDS: Ertapenem Inj 1,000 MG in 0.9% Sodium Chloride 50 ML IV SCH (08:09)
[2017-01-14] MEDS: Hydroxychloroqine 200 mg Tablet PO SCH (08:10)
[2017-01-14] MEDS ORDERED: Polyethylene Glycol (PEG) 17 Gm Powder PO SCH (08:30)
--- NOTE | 2017-01-14 10:07 | NUR ---
Social Work - Readiness for Discharge Data: EMR reviewed. Pt is on day 2 of hospitalization for fever, (H/O) ESBL, RYAN, Dehydration. Per MD in morning rounds pt may be ready to discharge later today or tomorrow. PT saw pt and has cleared him to return home, PT recommending HH. SW made referral to [facility] for RN and PT. Pt's daughter has obtained a FWW for him. Pt's daughter to provide transport home at discharge. SW will continue to follow. Assessment: Pt who would benefit from HH. P: Pt to discharge home when medically stable via POV. Referral made to [facility] for RN and PT. Pt's daughter has obtained a FWW for him. SW will continue to follow. SOHEILA Perez
[2017-01-14 10:40] VITALS: BP 126/70; PULSE 67; RESP 18; O2SAT 97
[2017-01-14] MEDS ORDERED: TAMS0.4C98 PO ×2 (11:10→13:31)
--- NOTE | 2017-01-14 12:43 | PCM.DIMED ---
Leah Jewell DO 01/14/17 1243: Discharge Instructions Date of Service Jan 14, 2017 Dates of Hospitalization Jan 12, 2017 at 12:16 Discharge Diagnosis Discharge Diagnosis 1. Acute kidney injury 2. Recurrent complicated UTI 3. Normocytic normochromic anemia 4. Systemic lupus erythematous 5. Hypertension 6. Urinary retention Medication Instructions Take 0.8 mg tamsulosin daily. This medicine can increase your risk of orthostatic hypotension. When standing up do so slowly and be careful so that you do not fall. Test Results Blood and urine cultures show no growth to date Diet Heart Healthy Activity No restrictions Call your provider Fever or Chills, Chest pain, Excessive diarrhea, Weakness (unilateral) Patient Instructions Follow-up with Dr. Fang after discharge. Follow-up plan Make an appointment to be seen at your primary care clinic. Follow-up Provider: Paris Cardoso MD Follow-up with PCP in: 1 week Provider: [facility] Follow-up in: 2 weeks Philippe Brown MD 01/14/17 1924: Discharge Instructions Attending's Statement The patient was seen and examined together with Dr. Jewell on 01/14/2017 and I agree with the discharge instructions outlined in the note above. Leah Jewell DO Jan 14, 2017 12:43 Philippe Brown MD Jan 14, 2017 19:24
--- NOTE | 2017-01-14 13:00 | PROG NOTE ---
[address] [address] PROGRESS NOTE PATIENT: WENDY ARIZA : 1935 MR#: [id number] ADMIT: 01/12/2017 JOB ID: [id number] DATE: 01/14/2017 REASON FOR FOLLOWUP: ESBL E. coli urinary tract infection. INTERVAL HISTORY: The patient has felt well overnight. He has had no fevers, chills, or sweats. No cough, nausea, or vomiting. His Clifton catheter was removed earlier this morning, and he has been able to void since, but it has only been out about 90 minutes. PHYSICAL EXAMINATION: Reveals an afebrile, very comfortable gentleman. Temperature 36.7, blood pressure 126/70, saturating well on room air. Lungs are clear. Abdomen is completely benign. No suprapubic tenderness. His Clifton is now out as was previously mentioned. No significant skin rash, though he has a raghu complexion on his face. His mental status is normal. He is hard of hearing. DIAGNOSTIC DATA: White count 5300, 7% eosinophils noted. Creatinine 1.07, still improving. LFTs were modestly elevated yesterday and will need to be followed up. His AST was 90 and his ALT 94. Procalcitonin continues to drop. It is 0.23 this morning. Recall that his urinalysis on the was negative. Blood cultures from the are negative. Urine from the no growth at 48 hours. IMAGING: Previously reviewed showed questionable gallbladder thickening. IMPRESSION: Complicated patient with recurring extended-spectrum beta-lactamase Escherichia coli urinary tract infection. During his last hospitalization, we attempted to make sure he would tolerate Bactrim and sent him out to a fpc facility with Bactrim, but he came back developing what appears to be a mild elevation of liver function tests and creatinine in association with low-grade fevers and nausea due to the Bactrim rather than a continued urinary tract infection. He was subsequently readmitted on the , and we switched him back to ertapenem. At this point, he has completed his two weeks of therapy for the most recent documented extended-spectrum beta-lactamase Escherichia coli complicated urinary tract infection, and I think we can stop antibiotics. RECOMMENDATIONS: 1. No additional antibiotics. 2. The chart has been labeled as SULFA/TRIMETHOPRIM SULFAMETHOXAZOLE intolerant. 3. The patient is following up with Urology at 2:30 today. 4. I asked that the patient follow up with me on January 22. At that time, among other things, will re-evaluate his urinary complaints as well as his LFTs.
--- NOTE | 2017-01-14 13:46 | NUR ---
Social Work - Discharge Data: EMR reviewed. Pt is on day two of hospitalization for fever, (H/O) ESBL, [place], dehydration. Pt is medically stable to discharge. PT has cleared pt for home PT with . GRACE updated Collin Ventura [phone] at [facility] of discharge and faxed in face to face and orders for RN and PT. Pt's daughter to provide transport home today. Pt and family updated and agreeable to plan. Assessment: Pt who would benefit from . Plan: Pt to discharge home today via POV. Face to face and orders faxed in to [facility] for RN and PT. All updated and agreeable to plan. SOHEILA Perez
--- NOTE | 2017-01-14 13:49 | NUR ---
Discharge Went over discharge instructions with pt and his son both verbally acknowledged understanding. Remove Clifton per MD orders at 1015 and patient had not voided by time of discharge. Dr Brown is aware as patient had a urologist appoint at 1415 today. Bladder scan: 247ml at 1345, advised pt to come back to ER if he doesn't void. Removed IV. Pt left in wheelchair, no s/s of distress at time of dc
--- NOTE | 2017-01-14 20:03 | PCM.DC.MED ---
Discharge Summary Date of Service Jan 14, 2017 Dates of Hospitalization Date of Hospital Admission Jan 12, 2017 at 12:16 Date of Discharge: Jan 14, 2017 Providers: Admitting Physician: Lyle Dominguez MD [facility]: Lyle Dominguez MD Diagnosis at Time of Discharge Diagnosis at Time of Discharge 1. Acute kidney injury 2. Recurrent complicated UTI 3. Normocytic normochromic anemia 4. Systemic lupus erythematous 5. Hypertension 6. Urinary retention Consultations Infectious disease Procedures XRay, CTs & MRIs X-RAY CHEST ONE VIEW, PORTABLE IMPRESSION: No acute process. Dictated by: Trevin Louis M.D. on 01/12/2017 at 9:39 US ABDOMEN IMPRESSION: 1. Possible gallbladder wall thickening. Finding may represent postprandial state. Negative sonographic Lam's sign. No cholelithiasis. Close clinical followup is recommended, with repeat imaging, if clinically warranted. 2. Coarse hepatic echotexture, which may indicate hepatitis versus atypical appearance of hepatic steatosis. Dictated by: Trevin Louis M.D. on 01/12/2017 at 12:27 Other Diagnostics PROCEDURE: US ABDOMEN INDICATIONS: fever, elevated LFT TECHNIQUE: Real-time scanning was performed of the abdominal and retroperitoneal organs, with image documentation. COMPARISON: [facility], CT, CT ABD PELVIS W CON, 04/28/2016, 21:06. [facility], CT, CT KUB, 12/30/2016, 22:36. FINDINGS: Liver: Liver is normal in size and demonstrates coarse echotexture within the right and left hepatic lobes. Gallbladder: Demonstrates a thickened wall measuring 4 mm. Patient is postprandial. No cholelithiasis. No sonographic Lam's sign. Biliary ducts: Intrahepatic bile ducts are non-dilated. Extrahepatic bile duct caliber measures 6.5 mm. Normal is 6-7 mm or less in diameter, or 10 mm or less post-cholecystectomy. Pancreas: Visualized portions of the pancreas are sonographically normal. Spleen: Spleen is normal in size and homogeneous in echotexture. Kidneys: Kidneys are normal in size and echotexture. Right kidney measures 10.0 cm long; left kidney measures 10.2 cm long. No hydronephrosis or nephrolithiasis. No solid masses. Aorta: Visualized aorta is normal in caliber at less than 3 cm. Iliacs: Not well-seen. IVC: Intrahepatic inferior vena cava is patent. Miscellaneous: No free abdominal fluid. IMPRESSION: 1. Possible gallbladder wall thickening. Finding may represent postprandial state. Negative sonographic Lam's sign. No cholelithiasis. Close clinical followup is recommended, with repeat imaging, if clinically warranted. 2. Coarse hepatic echotexture, which may indicate hepatitis versus atypical appearance of hepatic steatosis. Dictated by: Trevin Louis M.D. on 01/12/2017 at 12:27 Brief History History of present illness on admission per Dr. Snowden: Mejia Ho is a 81-year-old gentleman with history of hypertension, pancreatitis, lupus, pyelonephritis, sepsis and Escherichia coli ESBL for which he was previously treated multiple times, mostly recently 12/30/16-01/07/17 who presented to the [facility] ED today due to decreased urinary output and fever. His issues with ESBL began 4 weeks ago on a trip to [place] where he had previous symptoms of back pain which he correlated to the urinary tract infection. He was seen in urgent care where he was prescribed ciprofloxacin until he is able to be seen [facility]. Unfortunately a urine culture noted resistance to ciprofloxacin and he was started on nitrofurantoin. His antibiotics were then again switched to Bactrim and he was shortly thereafter admitted with sepsis. He underwent treatment with 7 days of carbapenems as well as 5 days of Bactrim with plan to be treated indefinitely with Bactrim and discharged to the care facility with a Bledsoe catheter in place. Per staff the patient has had a urine output of 300 since 1400 yesterday. They performed hypodermoclysis and irrigated his Bledsoe catheter with no improvement. He reports associated abdominal discomfort, fever (101F), and cough. He denies any back pain, chills, nausea, vomiting, diarrhea or suprapubic pressure or pain. In the ED his vitals were T 38.1 HR 75 RR 14 BP 152/63 with O2 Sat 96% on room air. His Bledsoe was replaced which successfully drained. Dr. Jackson was consulted by the ED and the patient was started on ertapenem per his recommendation. Hospital Course Mejia Ho is a 81-year-old gentleman with history of hypertension, pancreatitis, lupus, pyelonephritis, and recurrent Escherichia coli ESBL UTI who presented to the [facility] ED due to decreased urinary output and fever x 2 days. Of note he was recently discharged on for 01/07/17 for ESBL UTI with sepsis. 1. Possible Acute recurrent complicated UTI , POA -Patient has an indwelling catheter placed from last admission. He Reports his symptoms and fevers had improved on discharge and he was compliant with his PO Bactrim, but developed new onset fevers 2 days ago. This presentation is eerily similar to an episode last year where he failed Bactrim PO and had to be re- admitted for IV Ertapenem to treat his ESBL E. coli UTI. -Per Dr. Jackson patient was started on ertapenem 1 gm daily. ID team will evaluate patient. -Urine culture shows no growth to date -Discontinued Bactrim PO BID while on IV abx, patient reports he had moderate N/ V with this medication. -Contact isolation in place -UA was benign except 11-50 RBC. -bledsoe exchanged in ED on 01/12/17 2. Acute kidney injury, present on admission, ongoing - Resolved -Serum creatinine 1.60 on admission, with baseline around 1, creatinine on day of discharge 1.07 -Resolved, IV fluids discontinued. 3. Normocytic normochromic anemia, present on admission, ongoing -Likely a chronic process due to SLE 4. Systemic Lupus erythematosus, chronic, present on admission -Continue home Plaquenil at 400mg daily at discharge 5. Hypertension, chronic, present on admission - Continue home amlodipine 6. Urinary retention, present on admission, ongoing - Patient has indwelling Bledsoe from last admission. - Will titrate up Flomax to 0.8 mg daily, Bledsoe removed prior to discharge, patient followed up in urology office the same afternoon without void before departure. condition on discharge stable Exam Vital Signs (Last) Date Time Temp Pulse Resp B/P Pulse Ox O2 Delivery O2 Flow Rate FiO2 01/14/17 10:40 36.7 67 18 126/70 97 Room Air Exam General: Well developed male who appears in No acute distress. HEENT: Normocephalic, atraumatic. External ears without defect. Pupils equal, round, and reactive to light and accommodation. Anicteric sclerae, moist conjunctivae, and no lid lag. Oropharynx free of erythema and cobble stoning with moist mucosa. Neck: Supple with full range of motion. No jugular venous distension. No lymphadenopathy or thyromegaly. Cardiovascular: Regular rate and rhythm with soft systolic murmur no clicks or rubs appreciated Pulmonary: Clear to auscultation bilaterally with no crackles, wheezes, or rhonchi. Normal respiratory effort with no use of accessory muscles. Abdomen: Bowel tones present. Soft, nontender, nondistended. : Bledsoe in place draining clear dark yellow urine. Extremities: No clubbing, cyanosis, edema, or lymphadenopathy appreciated. Skin: Normal temperature, turgor, and texture. Generalized erythema of face and neck. Neurological: Cranial nerves grossly intact. Normal muscle strength, tone, and bulk. Psychiatric: Normal mood and affect. Alert and oriented to person, place, and time. Test 01/12/17 08:16 01/12/17 10:30 01/13/17 07:41 01/14/17 05:20 Hold Purple Top Tube Received (Received) Hold Blue Top Tube Received (Received) Lactic Acid Level 1.5mmol/L (0.4-2.0) Troponin T 0.010ug/L (0.0-0.011) Hold Red Top Tube Received (Received) Hold Levan Top Tube Received (Received) Hold Crocker Top Tube Received (Received) Urine Color Yellow (YELLOW) Urine Appearance Hazy (CLEAR,HAZY) Urine pH 5.0 (5.0-8.0) Urine Specific Jupiter 1.020 (1.003-1.035) Urine Protein Tracemg/dL (NEG,TRACE) Urine Glucose (UA) Negativemg/dL (NEGATIVE) Urine Ketones Negativemg/dL (NEGATIVE) Urine Occult Blood Small (NEGATIVE) Urine Nitrite Negative (NEGATIVE) Urine Bilirubin Negative (NEGATIVE) Urine Urobilinogen Normalmg/dL (NORMAL) Urine Leukocyte Esterase Negative (NEGATIVE) Urine RBC >50/hpf (0-2) Urine WBC 0-5/hpf (0-5) Urine Epithelial Cells Few/hpf (NONE-MOD) Urine Crystals Uric acid crystals (NONE Urine Bacteria None/hpf (NONE-FEW) Urine Hyaline Casts None/lpf (NONE) Urine Granular Casts None seen (NONE SEEN) Urine Waxy Casts None seen (NONE SEEN) Urine Red Blood Cell Casts None seen (NONE SEEN) Urine White Blood Cell Casts None seen (NONE SEEN) Urine Mucus None seen (None Seen) Urine Trichomonas None seen (NONE SEEN) Urine Yeast None (NONE SEEN) Urinalysis Comment None Urine Culture Reflexed Not indicated Phosphorus Level 2.3mg/dL (2.5-4.9) Magnesium Level 2.0mg/dL (1.6-2.6) Total Bilirubin 0.5mg/dL (0.0-1.2) Aspartate Amino Transf (AST/SGOT) 90U/L (0-50) Alanine Aminotransferase (ALT/SGPT) 94U/L (0-44) Alkaline Phosphatase 84U/L (25-160) Total Protein 5.5g/dL (6.4-8.4) Albumin 2.8g/dL (3.4-5.0) Lipase 38U/L (13-60) White Blood Count 5.3th/mm3 (3.8-10.1) Red Blood Count 3.96mil/mm3 (4.40-5.80) Hemoglobin 11.3g/dL (13.8-17.2) Hematocrit 34.2% (41.0-50.0) Mean Corpuscular Volume 86.4fL (81-100) Mean Corpuscular Hemoglobin 28.5pg (27.0-35.0) Mean Corpuscular Hemoglobin Concent 33.0% (32.0-37.0) Red Cell Distribution Width 14.5% (12.3-15.4) Platelet Count 159bil/L (150-400) Neutrophils (%) (Auto) 62.9% (40-74) Lymphocytes (%) (Auto) 20.6% (14-46) Monocytes (%) (Auto) 8.8% (4-12) Eosinophils (%) (Auto) 6.9% (0-5) Basophils (%) (Auto) 0.4% (0-3) Sodium Level 139mEq/L (134-144) Potassium Level 4.3mEq/L (3.5-5.2) Chloride Level 107mEq/L (97-108) Carbon Dioxide Level 19mmol/L (18-29) Blood Urea Nitrogen 11mg/dL (8-27) Creatinine 1.07mg/dL (0.76-1.27) Estimat Glomerular Filtration Rate 70mL/min (>59) Glucose Level 100mg/dL (60-99) Calcium Level 8.2mg/dL (8.5-10.1) Procalcitonin 0.23ng/mL (0.00-0.08) Discharge Medications Discharge Medications Amlodipine (Amlodipine) 2.5 Mg Tablet 7.5 MG PO DAILY (Reported) Aspirin (Aspirin) 81 Mg Tablet 81 MG PO DAILY (Reported) Hydroxychloroquine Sulfate (Hydroxychloroquine Sulfate) 200 Mg Tablet 400 MG PO DAILY (Reported) L. Rhamnosus GG/Inulin (Culturelle Chewable Tablet) 10 Billion Cell-200 Mg Tab.chew 1 EACH PO BID (Reported) Saccharomyces Boulardii (Florastor) 250 Mg Capsule 250 MG PO BID Prescribed by: DARYN JORGE MD Tamsulosin (Flomax) 0.4 Mg Capsule 0.8 MG PO DAILY Prescribed by: PHILIPPE BROWN MD As needed Acetaminophen (Tylenol Arthritis) 650 Mg Tablet.er 650 MG PO Q4H PRN PRN For Pain (Reported) Additional med instructions Take 0.8 mg tamsulosin daily. This medicine can increase your risk of orthostatic hypotension. When standing up do so slowly and be careful so that you do not fall. Followup Plan Disposition: Patient discharged home with no needs via urology appointment the same afternoon. Follow-up plan Make an appointment to be seen at your primary care clinic. Discharge Diet: Heart Healthy Discharge Activity: No restrictions Patient Instructions Follow-up with Dr. Fang after discharge. Follow-up Provider: Paris Cardoso MD Follow-up with PCP in: 1 week Provider: [facility] Follow-up in: 2 weeks Time spent 40 minutes coordinating discharge Attending Statement The patient was seen and examined independently on 01/14/2017 and case discussed with Dr. Jewell , I agree with the discharge summary as outlined in the note above. copies to: Paris Cardoso MD; [facility] Leah Jewell DO Jan 14, 2017 20:03 Philippe Brown MD Jan 15, 2017 06:42
== END 2017-01-14 13:58 | disposition home health service (06) | DRG 699 ==
LOC: EDUNIT# 07:50 → SED 07:50 → EDBD 07:50 → MPC 12:16 → OBSVTOIN 12:16 → MPC 13:14
PROVIDERS: ADMIT Family Medicine; ATTEND Family Medicine
DX: T83.511A Infection and inflammatory reaction due to indwelling urethral catheter, initial encounter (principal); N17.9 Acute kidney failure, unspecified; I10 Essential (primary) hypertension; Z87.891 Personal history of nicotine dependence; M32.9 Systemic lupus erythematosus, unspecified; B96.20 Unspecified Escherichia coli [E. coli] as the cause of diseases classified elsewhere; D64.9 Anemia, unspecified; R33.9 Retention of urine, unspecified